=== PATIENT | female | born 1940 | race Caucasian/White ===

== ENCOUNTER → 2016-08-04 | Outpatient (CLI) | payer MEDICARE, BC ==
--- NOTE | 2016-08-06 12:58 | MM ---
Reason for exam: screening (asymptomatic). Last mammogram was performed 1 year ago. History: Patient is postmenopausal. Took progesterone for 2 years beginning at age 49. Physical Findings: A clinical breast exam by your physician is recommended on an annual basis and results should be correlated with mammographic findings. MG 3D Screening Mammo W/Cad Bilateral CC and MLO view(s) were taken. Prior study comparison: July 24, 2015, bilateral MG 3d screening mammo w/cad. July 22, 2014, bilateral MG screening mammo w CAD. The breast tissue is heterogeneously dense. This may lower the sensitivity of mammography. There is chronic nodularity bilaterally. No significant changes when compared with prior studies. ASSESSMENT: Benign, BI-RAD 2 RECOMMENDATION: Routine screening mammogram of both breasts in 1 year.
== END | disposition home or self-care (01) ==
LOC: RADMAMWWP 08:37
PROVIDERS: ATTEND Family Medicine
DX: Z12.31 Encounter for screening mammogram for malignant neoplasm of breast (principal)
CPT/HCPCS: 77063; G0202

== ENCOUNTER → 2017-08-17 | Outpatient (CLI) | payer MEDICARE ==
--- NOTE | 2017-08-17 14:45 | MM ---
Reason for exam: screening (asymptomatic). Last mammogram was performed 1 year ago. History: Patient is postmenopausal. Took progesterone for 2 years beginning at age 49. Physical Findings: A clinical breast exam by your physician is recommended on an annual basis and results should be correlated with mammographic findings. MG 3D Screening Mammo W/Cad Bilateral CC and MLO view(s) were taken. Prior study comparison: August 04, 2016, bilateral MG 3d screening mammo w/cad. July 24, 2015, bilateral MG 3d screening mammo w/cad. The breast tissue is heterogeneously dense. This may lower the sensitivity of mammography. Stable benign calcifications. There is chronic nodularity bilaterally. New nodule outer right CC view, 10.9cm from nipple. ASSESSMENT: Incomplete: need additional imaging evaluation, BI-RAD 0 RECOMMENDATION: Special view mammogram of the right breast. If lesion persists on supplemental views, image directed ultrasound is recommended. [facility] will attempt to contact patient to return for supplemental views and ultrasound if indicated.
== END | disposition home or self-care (01) ==
LOC: RADMAMWWP 09:22
PROVIDERS: ATTEND Family Medicine
DX: Z12.31 Encounter for screening mammogram for malignant neoplasm of breast (principal)
CPT/HCPCS: 77063; 77067

== ENCOUNTER → 2017-08-30 | Outpatient (CLI) | payer MEDICARE ==
--- NOTE | 2017-08-31 08:53 | MM ---
Reason for exam: additional evaluation requested from abnormal screening. Last mammogram was performed less than 1 month ago. History: Patient is postmenopausal. Took progesterone for 2 years beginning at age 49. Physical Findings: Nurse did not find any significant physical abnormalities on exam. MG 3D Work Up W/Cad RT Spot compression CC and LM view(s) were taken of the right breast. Prior study comparison: August 17, 2017, bilateral MG 3d screening mammo w/cad. August 04, 2016, bilateral MG 3d screening mammo w/cad. The breast tissue is heterogeneously dense. This may lower the sensitivity of mammography. There is no discrete abnormality. These results were verbally communicated with the patient and result sheet given to the patient on 08/30/17. ASSESSMENT: Benign, BI-RAD 2 RECOMMENDATION: Return to routine screening mammogram schedule for both breasts.
== END | disposition home or self-care (01) ==
LOC: RADMAMWWP 12:28
PROVIDERS: ATTEND Family Medicine
DX: R92.8 Other abnormal and inconclusive findings on diagnostic imaging of breast (principal)
CPT/HCPCS: 77065; G0279; 77061

== ENCOUNTER → 2018-04-04 | Outpatient (CLI) | payer MEDICARE ==
--- NOTE | 2018-04-04 18:58 | BD ---
EXAMINATION TYPE: Axial Bone Density DATE OF EXAM: 04/04/2018 COMPARISON: 2016 CLINICAL HISTORY: 77-year-old female postmenopausal screening Height: 4'11 1/2 Weight: 259 FRAX RISK QUESTIONS: Secondary Osteoporosis: RISK FACTORS HISTORY OF: Active: n Postmenopausal woman: y MEDICATIONS: Additional Medications: high blood pressure, vitamin D Additional History: EXAM MEASUREMENTS: Bone mineral densitometry was performed using the [employer] System. Bone mineral density as measured about the Lumbar spine is: ----- L1-L4(G/cm2): 1.130 T Score Values are as follows: ----- L2: 0.0 ----- L3: -1.1 ----- L4: 0.0 ----- L1-L4:-0.4 Bone mineral density has: Decreased -4.6% since study of: 07/24/2015 Bone mineral density about the R hip (g/cm2): 0.859 Bone mineral density about the L hip (g/cm2): 0.851 T Score values are as follows: -----R Neck: -1.3 -----L Neck: -1.3 -----R Total: -0.1 -----L Total: -0.1 Bone mineral density has: Decreased -3.6% since study of: -07/24/2015 IMPRESSION: Osteopenia (T Score between -2.5 and -1). There is slightly increased risk of fracture and the patient may be considered for treatment. Re-Screen 2-5 years. NOTE: T-SCORE=SD OF THE YOUNG ADULT MEAN.
== END ==
LOC: RADBDWWP 13:08
PROVIDERS: ATTEND Family Medicine
DX: M85.80 Other specified disorders of bone density and structure, unspecified site (principal); Z78.0 Asymptomatic menopausal state
CPT/HCPCS: 77080

== ENCOUNTER → 2018-08-24 | Outpatient (CLI) | payer MEDICARE ==
--- NOTE | 2018-08-25 11:40 | MM ---
Reason for exam: screening (asymptomatic). Last mammogram was performed 1 year ago. History: Patient is postmenopausal. Took progesterone for 2 years beginning at age 49. Physical Findings: A clinical breast exam by your physician is recommended on an annual basis and results should be correlated with mammographic findings. MG 3D Screening Mammo W/Cad Bilateral CC and MLO view(s) were taken. Prior study comparison: August 30, 2017, right breast MG 3d work up w/cad RT. August 17, 2017, bilateral MG 3d screening mammo w/cad. The breast tissue is heterogeneously dense. This may lower the sensitivity of mammography. Finding #1: There is a questionable new architectural distortion in the outer quadrant, anterior middle position of the left breast, 7cm from the nipple, on CC (). Finding #2: There are typically benign vascular, round calcifications in both breasts. There is a chronic nodularity bilaterally. ASSESSMENT: Incomplete: need additional imaging evaluation, BI-RAD 0 RECOMMENDATION: Special view mammogram of the left breast. If lesion persists on supplemental views, image directed ultrasound is recommended. [facility] will attempt to contact patient to return for supplemental views and ultrasound if indicated.
== END | disposition home or self-care (01) ==
LOC: RADMAMWWP 15:08
PROVIDERS: ATTEND Family Medicine
DX: Z12.31 Encounter for screening mammogram for malignant neoplasm of breast (principal)
CPT/HCPCS: 77063; 77067

== ENCOUNTER → 2018-09-01 | Outpatient (CLI) | payer MEDICARE ==
--- NOTE | 2018-09-04 08:02 | MM ---
Reason for exam: additional evaluation requested from abnormal screening. Last mammogram was performed less than 1 month ago. History: Patient is postmenopausal. Took progesterone for 2 years beginning at age 49. Physical Findings: Nurse did not find any significant physical abnormalities on exam. MG 3D Work Up W/Cad LT Spot compression CC, LM, CC, and MLO view(s) were taken of the left breast. Prior study comparison: August 24, 2018, bilateral MG 3d screening mammo w/cad. August 30, 2017, right breast MG 3d work up w/cad RT. The breast tissue is heterogeneously dense. This may lower the sensitivity of mammography. Left upper outer quadrant distortion 8cm from nipple at 2-3 o'clock persists on additional views. Ultrasound will be performed. These results were verbally communicated with the patient and result sheet given to the patient on 09/01/18. ASSESSMENT: Incomplete: need additional imaging evaluation, BI-RAD 0 RECOMMENDATION: Ultrasound of the left breast. (upper outer quadrant)
--- NOTE | 2018-09-04 08:05 | USB ---
Reason for exam: additional evaluation requested from abnormal screening. History: Patient is postmenopausal. Took progesterone for 2 years beginning at age 49. US Breast Workup Limited LT Left limited breast ultrasound including focal area of concern, retroareolar and axilla demonstrates a 5 x 3 x 3mm oval, lymph node at 1 o'clock, a 7 x 2 x 7mm mixed, possible cystic cluster at 2 o'clock and a 9 x 12 x 12mm solid, irregular, ductal ectasia at 2 o'clock, mass corresponds with mammographic finding, biopsy recommended. These results were verbally communicated with the patient and result sheet given to the patient on 09/01/18. ASSESSMENT: Suspicious, BI-RAD 4 RECOMMENDATION: Ultrasound core biopsy of the left breast. Called Dr. Myers with mammographic findings and has scheduled an appointment for the patient for 11/09/18 at 8:[address] López. Biopsy scheduled for 10/17/18 at 12:20. PRELIMINARY REPORT CALLED AND FAXED TO DR. LÓPEZ ON 09/04/18.
== END | disposition home or self-care (01) ==
LOC: RADMAMWWP 14:48
PROVIDERS: ATTEND Family Medicine
DX: R92.8 Other abnormal and inconclusive findings on diagnostic imaging of breast (principal)
CPT/HCPCS: 77065; 76642; G0279; 77061

== ENCOUNTER → 2018-10-17 | Day surgery (SDC) | payer MEDICARE ==
[2018-10-17 11:32] VITALS: RESP 18; TEMP 97.7; BMI 42.3
[2018-10-17 14:31] VITALS: BP 183/83; PULSE 83
== END ==
LOC: RADUSWWP 11:01
PROVIDERS: ATTEND Surgery
DX: Z53.8 Procedure and treatment not carried out for other reasons (principal); R92.8 Other abnormal and inconclusive findings on diagnostic imaging of breast

== ENCOUNTER → 2018-10-18 | Day surgery (SDC) | payer MEDICARE ==
[2018-10-18 12:09] VITALS: RESP 16; BMI 42.3
--- NOTE | 2018-10-18 13:50 | USB ---
EXAMINATION TYPE: US biopsy breast VAD LT, MG diagnostic mammo LT wo CAD DATE OF EXAM: 10/18/2018 CLINICAL HISTORY: R92.8 ABNORMAL MAMMOGRAM. Abnormal ultrasound. TECHNIQUE: Ultrasound guided core biopsy of left breast with clip placement and follow-up two-view mammogram. COMPARISON: Mammogram and ultrasound workup September 01, 2018 and older mammograms. FINDINGS: The procedure of ultrasound guided core biopsy was explained to the patient. Benefits, alternatives, and risks were discussed. An informed consent was then obtained. The patient was placed in supine positioning for imaging and for the procedure. Preprocedure ultrasound redemonstrates irregular hypoechoic shadowing area 2:00 position zone BC. The overlying skin was prepped and draped in usual sterile fashion. Lidocaine was used as anesthetic into the skin and subcutaneous tissue. Lidocaine with epinephrine is used as anesthetic into the deeper tissue up to area of concern in the left breast. Under ultrasound guidance, a 12-gauge vacuum assisted biopsy gun device was used to obtain 5 core samples. Following this, a biopsy clip was left in lesion. The patient tolerated the procedure well without any immediate complication. The patient was kept in the radiology department for short stay after the procedure and then discharged home in stable condition. Postprocedure mammogram along the anterior aspect of the lesion or subtle distortion seen better on 3-D views. IMPRESSION: Successful, uncomplicated ultrasound guided core biopsy of area of concern in the left breast, full pathology results to follow. Intermediate to high index of suspicion noted at time of procedure. Consider 3-D stereotactic biopsy if benign results. Pathology Results: Malignant ULTRASOUND GUIDED CORE BIOPSY, LEFT BREAST: Infiltrating lobular carcinoma, classic type. Recommendation Surgical consult of the left breast. Definitive surgical treatment, this is ammendable to ultrasound guided needle localization. MTDD
[2018-10-18 14:01] VITALS: BP 134/73; PULSE 64; TEMP 97.6
== END ==
LOC: RADUSWWP 11:37
PROVIDERS: ATTEND Surgery
DX: C50.912 Malignant neoplasm of unspecified site of left female breast (principal); Z88.5 Allergy status to narcotic agent; Z91.048 Other nonmedicinal substance allergy status
CPT/HCPCS: 88305; 88342; 88341; 77065; 19083; A4648; J2001

== ENCOUNTER → 2018-12-20 | Outpatient (CLI) | payer MEDICARE ==
--- NOTE | 2018-12-21 08:54 | USB ---
Reason for exam: clinical finding. History: Patient is postmenopausal and has history of breast cancer at age 78. Malignant US biopsy breast VAD LT of the left breast, October 18, 2018. Took progesterone for 2 years beginning at age 49. Physical Findings: Nurse Summary: x 2 palpable areas (nurse kp). US Breast BILAT Right complete breast ultrasound includes all four quadrants, the retroareolar region and axilla. Finding demonstrates a 4 x 2 x 3mm oval, cystic lesion at 1 o'clock, a 7 x 4 x 6mm lobular, mixed lesion at 1 o'clock, a 3 x 2 x 4mm lobular, cystic lesion at 7 o'clock, a 6 x 4 x 4mm oval, mixed lesion at 11 o'clock and a 13 x 7mm oval, lymph node at the axilla tail. Left complete breast ultrasound includes all four quadrants, the retroareolar region and axilla. Finding demonstrates a 6 x 3 x 4mm oval lymph node at 2 o'clock BB, a 13 x 10 x 11mm irregular lesion at 2 o'clock BB previous biopsy site and a 11 x 7 x 6mm irregular lesion at 2 o'clock BB adjacent to biopsy site. These results were verbally communicated with the patient and result sheet given to the patient on 12/20/18. ASSESSMENT: Suspicious, BI-RAD 4 RECOMMENDATION: Ultrasound core biopsy of the left breast. MRI-guided biopsy of the right breast. Right MRI biosy after ultrasound core of left breast. Called Dr. López with mammographic findings. Biopsy scheduled for 12/25/18 at 10:00. PRELIMINARY REPORT CALLED AND FAXED TO DR. LÓPEZ ON 12/21/18.
== END ==
LOC: RADUSWWP 12:37
PROVIDERS: ATTEND Surgery
DX: C50.912 Malignant neoplasm of unspecified site of left female breast (principal)

== ENCOUNTER → 2019-01-02 | Day surgery (SDC) | payer MEDICARE ==
[~2019-01-02] MED LIST: ALPRAZolam 0.25 MG TAB PO ONE; HYDROmorphone 0.5 MG/0.5 ML SYRINGE IVP PRN
[2019-01-02 09:54] VITALS: RESP 14; TEMP 98.2
[2019-01-02 14:01] VITALS: BP 140/72; PULSE 62
--- NOTE | 2019-01-02 16:17 | BMR ---
EXAMINATION TYPE: MR breast biopsy w/vad EDGAR, MG diagnostic mammo BI wo CAD DATE OF EXAM: 01/02/2019 COMPARISON: Outside breast MRI dated 11/29/2018 PREPROCEDURAL CONSULTATION: Following a discussion of the risks, benefits, and alternatives of the procedure, informed consent was obtained. The patient identified herself by both her name and date and indicated that the right breast was the area of concern. Prior to the procedure, an audible timeout was done to verify patient identification, site and type of procedure. The bilateral breasts were both marked prior to the procedure. PROCEDURE: Site A-right breast: The patient was placed on the MRI scanner within the breast coil with mild compression on the right breast. T1 weighted fat saturation axial images were obtained before and after administration of IV contrast. The enhancing area of concern was identified. The CAD Stream software program was used to localize the enhancing area of concern. The patient was taken out of the scanner and the skin was sterilely prepped. 7 mL of buffered 1% lidocaine was injected subcutaneously and then into the deeper tissues. Subsequently, a trochar and sheath were advanced into the breast at the designated depth. The trochar was removed and a plastic stylet was placed into the sheath and the patient was placed back into the scanner. Confirmation images obtained. The stylet tip was in good position in relation to the area of concern. The stylet was removed and the 9-guage vacuum-assisted needle was placed into the sheath. 7 cc of lidocaine with epinephrine was administered at the biopsy site through the biopsy device. 12 tissue core specimens were obtained. The biopsy needle was removed and a metallic clip was placed into the biopsy site (dumbbell shaped). Confirmation images were then obtained demonstrating satisfactory location of the biopsy marking clip. The patient was then taken out of the scanner and hemostasis was achieved with manual compression. A sterile dressing was applied at the site of biopsy. The patient tolerated the procedure without difficulty. Site B-left breast: The patient was placed on the MRI scanner within the breast coil with mild compression on the leftbreast. T1 weighted fat saturation axial images were obtained before and after administration of IV contrast. The enhancing area of concern was identified. The CAD Stream software program was used to localize the enhancing area of concern. The patient was taken out of the scanner and the skin was sterilely prepped. 7 mL of buffered 1% lidocaine was injected subcutaneously and then into the deeper tissues. Subsequently, a trochar and sheath were advanced into the breast at the designated depth. The trochar was removed and a plastic stylet was placed into the sheath and the patient was placed back into the scanner. Confirmation images obtained. The stylet tip was in good position in relation to the area of concern. The stylet was removed and the 9-guage vacuum-assisted needle was placed into the sheath. 7 cc of lidocaine with epinephrine was administered at the biopsy site through the biopsy device. 10 tissue core specimens were obtained. The biopsy needle was removed and a metallic clip was placed into the biopsy site (dumbbell shaped). Confirmation images were then obtained demonstrating satisfactory location of the biopsy marking clip. The patient was then taken out of the scanner and hemostasis was achieved with manual compression. A sterile dressing was applied at the site of biopsy. The patient tolerated the procedure without difficulty. Pathology specimens were labeled with patient identifiers in front of the patient while the patient was in the procedure room, and then sent to the pathology department. A post biopsy mammogram demonstrates satisfactory placement of the biopsy markers bilaterally. The patient experienced no complications during the procedure. Home-going/follow-up instructions were reviewed with the patient before she left the department. IMPRESSION: Status post MRI guided vacuum-assisted core needle biopsy of the bilateral breasts followed by placement of tissue marker. Pathology and an addendum are pending. Pathology Results: Malignant A. 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 See Surgical Pathology Cancer Case Summary and comment. B. LEFT BREAST, CORE BIOPSY: Focal scar in a background of fibrocystic changes including cysts, fibrosis, adenosis, apocrine metaplasia, calcifications and columnar cell change. Recommendation Surgical consult. Definitive surgical/medical management. MTDD
== END | disposition home or self-care (01) ==
LOC: RADMRIMAIN 08:51
PROVIDERS: ATTEND Surgery
DX: D05.11 Intraductal carcinoma in situ of right breast (principal)
CPT/HCPCS: 88305; 88342; 88341; 96374; 77066; 19085; 19086; A4648; A9585; J1170

== ENCOUNTER 2019-01-18 09:47 | Day surgery (SDC) | payer MEDICARE ==
[2019-01-16 12:16] VITALS: BMI 42.5
--- NOTE | 2019-01-18 08:23 | P.NAPBC ---
NAPBC Queries - NAPBC Queries Was patient's case review presented at [facility] tumor board? If no, comment.: Yes Was patient's pathology reviewed at [facility]? If no, comment.: Yes Was breast conservation surgery offered? If no, comment.: Yes Was sentinel node biopsy offered? If no, comment.: Yes Was diagnosis confirmed by percutaneous core biopsy? If no, comment.: Yes Is patient mastectomy patient?: Yes Was a preop referral to reconstructive surgeon offered?: Yes Clinical Stage: 1A
--- NOTE | 2019-01-18 08:23 | P.GSHP ---
History of Present Illness H&P Date: 01/18/19 Chief Complaint: Bilateral breast cancer 78-year-old female first evaluated in October of this year. She had a mammogram showing a density in the left breast. Ultrasound showed a 1.2 cm mass. Ultrasound core biopsy showed invasive lobular carcinoma that was ER positive [place] negative HER-2 negative. No family history of breast cancer. Patient otherwise asymptomatic. Given the pathology findings MRI left breast was ordered. She was presented at our multidisciplinary tumor board. MRI unfortunately had to be performed outside of town. MRI showed the known malignancy left breast. An additional 8 mm mass upper outer left breast was seen. In the right breast a 10 mm irregular mass was identified up her inner quadrant. No suspicious adenopathy bilaterally. Patient was then scheduled for MRI guided biopsy bilateral breast. Biopsy from the right breast shows grade 2 invasive ductal cancer and DCIS. Left breast MRI biopsy benign. Right breast cancer is ER/OH positive HER-2/danae negative. Past Medical History Past Medical History: Cancer, Hyperlipidemia, Hypertension Additional Past Medical History / Comment(s): Current bilateral breast cancer. History of Any Multi-Drug Resistant Organisms: None Reported Past Surgical History: Appendectomy, Breast Surgery, Cholecystectomy, Hysterectomy, Orthopedic Surgery Additional Past Surgical History / Comment(s): Bilateral knee replacement, left breast biopsy, bilateral cataract surgery. Past Anesthesia/Blood Transfusion Reactions: Motion Sickness, Postoperative Nausea & Vomiting (PONV) Past Psychological History: Anxiety Smoking Status: Never smoker Past Alcohol Use History: Rare Past Drug Use History: None Reported - Past Family History Mother Family Medical History: Cancer Additional Family Medical History / Comment(s): Colon cancer. Medications and Allergies Home Medications Medication Instructions Recorded Confirmed Type Cholecalciferol [Vitamin D3 (25 5,000 unit PO DAILY 10/02/18 01/16/19 History Mcg = 1000 Iu)] Hydrochlorothiazide [Hydrodiuril] 25 - 50 mg PO DAILY 10/02/18 01/16/19 History Ibuprofen [Motrin] 800 mg PO BID 10/02/18 01/16/19 History Metoprolol Succinate [Kapspargo 25 mg PO BID 10/02/18 01/16/19 History Sprinkle] Multivit-Min/Iron/Folic/Lutein 1 each PO DAILY 10/02/18 01/16/19 History [Centrum Silver Women Tablet] Ramipril [Altace] 10 mg PO HS 10/02/18 01/16/19 History Simvastatin [Zocor] 40 mg PO HS 10/02/18 01/16/19 History hydrALAZINE HCL [Apresoline] 25 mg PO TID 10/02/18 01/16/19 History Acetaminophen [Tylenol Extra 500 mg PO Q8HR PRN 12/25/18 01/16/19 History Strength] Citalopram Hydrobromide [CeleXA] 20 mg PO QAM 12/25/18 01/16/19 History amLODIPine [Norvasc] 2.5 mg PO QAM 12/25/18 01/16/19 History Calcium Carbonate [Calcium] 1,200 mg PO DAILY 01/16/19 01/16/19 History Allergies Allergy/AdvReac Type Severity Reaction Status Date / Time codeine AdvReac Confusion Verified 01/16/19 11:55 nickel AdvReac Itching Verified 01/16/19 11:55 Surgical - Exam Physical exam: General: Well-developed, well-nourished HEENT: Normocephalic, sclerae nonicteric Left breast: Recent scar noted, no masses, No adenopathy Right breast: Recent scar noted, no masses, no adenopathy Abdomen: Nontender, nondistended Extremities: No edema Neuro: Alert and oriented Assessment and Plan (1) Bilateral breast cancer Narrative/Plan: 78-year-old female with left breast invasive lobular cancer and right breast invasive ductal cancer. Options reviewed with the patient in detail. She is not interested in mastectomy or genetic workup at this time. Patient is interested in breast conservation. She is also not interested in plastic surgery evaluation, preop oncologic evaluation or second opinion. She would like to proceed with bilateral wire localization lumpectomy with bilateral sentinel lymph node Injection and biopsy. Risks of bleeding, infection, seroma, nerve injury, scarring, dimpling, numbness, lymphedema, possible need for additional surgery reviewed. Patient understands and wishes to proceed. Status: Acute Code(s): C50.911 - MALIGNANT NEOPLASM OF UNSP SITE OF RIGHT FEMALE BREAST; C50.912 - MALIGNANT NEOPLASM OF UNSPECIFIED SITE OF LEFT FEMALE BREAST SNOMED Code(s): 687800407
[~2019-01-18 09:47] MED LIST changes: -ALPRAZolam 0.25 MG TAB PO ONE; +DEXAMETHASONE SOD PHOSPHATE 10 MG/ML 1 ML VIAL IV ONE; +HEPARIN SODIUM,PORCINE 5,000 UNIT/ML 1 ML VIAL SQ ONE; -HYDROmorphone 0.5 MG/0.5 ML SYRINGE IVP PRN; +LACTATED RINGERS 1,000 ML IV SCH; +LIDOCAINE 1% 20 ML VIAL (10MG/ML) FOR IV START INTRADERMA PRN; +ONDANSETRON 4 MG/2 ML VIAL IVP ONE; +Pre Op ABX Message 1 EACH MISC MISCELLANE ONE; +fentaNYL (PF) 50 MCG/ML 2 ML AMP IV PRN
[2019-01-18] MEDS ORDERED: ALPRAZolam 0.25 MG TAB PO ONE (10:20)
[2019-01-18] MEDS ORDERED: LIDOCAINE 1% INJ 10MG/ML (20 ML MDV) SQ ONE ×2 (11:55→12:28)
[2019-01-18] MEDS ORDERED: METHYLENE BLUE 50 MG/10 ML AMPUL INJ ONE ×2 (12:15→13:50)
[2019-01-18] MEDS ORDERED: fentaNYL (PF) 50 MCG/ML 2 ML AMP ONE (13:19)
[2019-01-18] MEDS ORDERED: LIDOCAINE 1% INJ 10MG/ML (20 ML MDV) ONE (13:19)
[2019-01-18] MEDS ORDERED: PROPOFOL 10 MG/ML 20 ML VIAL IV ONE (13:19)
[2019-01-18] MEDS ORDERED: diphenhydrAMINE 50 MG/ML 1 ML VIAL ONE (13:19)
[2019-01-18] MEDS ORDERED: GLYCOPYRROLATE 0.2 MG/ML 2 ML VIAL ONE (13:19)
[2019-01-18] MEDS ORDERED: SUCCINYLCHOLINE CHLORIDE 100 MG/5 ML SYR IV ONE (13:19)
[2019-01-18] MEDS ORDERED: MIDAZOLAM 2 MG/2 ML VIAL ONE (13:19)
[2019-01-18] MEDS ORDERED: ePHEDrine SULFATE/0.9% NACL/PF 50 MG/5 ML SYRINGE IV ONE (13:19)
[2019-01-18] MEDS ORDERED: SODIUM CHLORIDE 0.9% 50 ML with ceFAZolin 2,000 MG IV ONE ×2 (13:28)
--- NOTE | 2019-01-18 13:38 | NM ---
EXAMINATION TYPE: NM sentinel node injection DATE OF EXAM: 01/18/2019 COMPARISON: NONE HISTORY: RIGHT BREAST CANCER TECHNIQUE AND FINDINGS: The procedure of sentinel lymph node injection was explained to the patient. The benefits, alternatives, and risks were discussed. An informed consent was then obtained. Overlying skin is cleaned with sterile alcohol. Following this, 448 uCi Tc99m Tilmanocept was inject ed in the upper outer aspect of the right nipple intradermally. The patient tolerated the procedure well without any immediate complication. The patient was kept in the radiology department for short stay after the procedure and then taken to surgery for surgical p rocedure what is presumed intraoperative gamma probe will be used for sentinel lymph node detection. IMPRESSION: Right breast radiotracer injection for sentinel node localization as above.
--- NOTE | 2019-01-18 13:41 | NM ---
EXAMINATION TYPE: NM sentinel node injection DATE OF EXAM: 01/18/2019 COMPARISON: NONE HISTORY: LEFT BREAST CANCER TECHNIQUE AND FINDINGS: The procedure of sentinel lymph node injection was explained to the patient. The benefits, alternatives, and risks were discussed. An informed consent was then obtained. Overlying skin is cleaned with sterile alcohol. Following this, 458 uCi Tc99m Tilmanocept was inject ed in the upper outer aspect of the LEFT nipple intradermally. The patient tolerated the procedure well without any immediate complication. The patient was kept in the radiology department for short stay after the procedure and then taken to surgery for surgical p rocedure what is presumed intraoperative gamma probe will be used for sentinel lymph node detection. IMPRESSION: LEFT breast radiotracer injection for sentinel node localization as above.
[2019-01-18] MEDS ORDERED: LACTATED RINGERS 1,000 ML IV ONE (15:53)
[2019-01-18 16:01] VITALS: TEMP 97.4
[2019-01-18] MEDS ORDERED: HYDROcodone/APAP 5-325MG 1 EACH TAB PO PRN (16:05)
[2019-01-18] MEDS ORDERED: NALOXONE 0.4 MG/ML 1 ML VIAL IV PRN (16:05)
--- NOTE | 2019-01-18 16:12 | P.OP ---
Date of Procedure: 01/18/19 Procedure(s) Performed: REOPERATIVE DIAGNOSIS: Bilateral breast cancer POSTOPERATIVE DIAGNOSIS: Same PROCEDURE: Bilateral Breast wire localization lumpectomy with sentinel lymph node biopsy SURGEON: Maribel EBL: Minimal ANESTHESIA: General COMPLICATIONS: None OPERATIVE PROCEDURE: Patient was placed on the operating room table in the supine position. 2 mL of methylene blue was injected into the subareolar space bilaterally. The breasts were then massaged for 5 minutes. The breasts were prepped and draped in usual sterile fashion. The right side was first addressed. The right axilla was addressed at that time. The hot spot in the right axilla was identified. A small curvilinear incision was made using the scalpel. Dissection down through the subcutaneous tissues took place using electrocautery. Using the neoprobe I identified a total of 2 sentinel lymph nodes. One of these was blue in color. These were both removed and sent to pathology for permanent sectioning. They did not have a appearance worrisome for metastasis. The subcutaneous tissues were closed using 3-0 Vicryl sutures. The skin was closed using 4-0 Monocryl sutures. The wire entrance site was then addressed. This was present at the 9:00 location. A curvilinear incision was made adjacent to the wire entrance site. I followed the wire down into the breast tissue. An adequate lumpectomy specimen then took place around the wire. It should be noted that the clip was fairly superficial and close to the skin surface. Our anterior margin would be considered immediately beneath the dermal layer. Margins of 1.5-2 cm worth attempted to be achieved. Clips were used to identify the lumpectomy cavity. The clip was confirmed to be within the lumpectomy specimen by radiology. The subcutaneous tissues were closed using 3- 0 Vicryl sutures. The skin was closed using a running 4-0 Monocryl stitch. Skin glue was then applied to both incision sites.. The specimen was painted the appropriate 6 colors. The left side was then addressed. The hot spot in the right axilla was identified. A small curvilinear incision was made using the scalpel. Dissection down through the subcutaneous tissues took place using electrocautery. Using the neoprobe I identified a total of 2 sentinel lymph nodes. Again 1 of these was blue in color. These were both removed and sent to pathology for permanent sectioning. They did not have a appearance worrisome for metastasis. The subcutaneous tissues were closed using 3-0 Vicryl sutures. The skin was closed using 4-0 Monocryl sutures. The wire entrance site was then addressed. This was present at the 9:00 location. A curvilinear incision was made adjacent to the wire entrance site. I followed the wire down into the breast tissue. An adequate lumpectomy specimen then took place around the wire. Again the clip was relatively superficial. Our anterior margin was very close to the skin surface. As we were dissecting through the subcutaneous tissues I encountered indurated and bruised appearing breast tissue. This is likely from the second benign biopsy that was performed on the left breast. During the procedure I did speak with radiology to be sure that the appropriate clip was localized preoperatively. They confirmed that the clip that was wire localized was in fact the site of malignancy. Margins of 1.5-2 cm worth attempted to be achieved. Clips were used to identify the lumpectomy cavity. The clip was confirmed to be within the lumpectomy specimen by radiology. The subcutaneous tissues were closed using 3-0 Vicryl sutures. The skin was closed using a running 4-0 Monocryl stitch. Skin glue was then applied to both incision sites. The specimen was again painted the appropriate 6 colors. DISPOSITION: Stable to recovery room
[2019-01-18] MEDS: HYDROmorphone 0.5 MG/0.5 ML SYRINGE IVP PRN ×2 (16:22→16:29)
[2019-01-18] MEDS ORDERED: HYDROcodone/APAP 5-325MG 1 EACH TAB PO ONE ×2 (17:26→17:30)
[2019-01-18 18:02] VITALS: RESP 18
[2019-01-18 18:04] VITALS: BP 135/56; PULSE 97
--- NOTE | 2019-01-19 09:27 | USB ---
EXAMINATION TYPE: US breast localization LT, US breast limited RT, MG surgical specimen LT DATE OF EXAM: 01/18/2019 COMPARISON: NONE CLINICAL HISTORY: Left breast malignancy. Informed consent was obtained and all the patient's questions were answered. The standard sterile technique was utilized. Local anesthesia was obtained with 1% lidocaine. Utilizing ultrasound guidance localization needle followed by guidewire was then introduced into the region in question with clip localized. The patient tolerated the procedure well and left the radiology suite in stable condition. Specimen radiograph demonstrates the clip to reside within the specimen obtained. IMPRESSION: Accessible ultrasound-guided needle localization left breast. Pathology results are pending. Pathology Results: Malignant A. RIGHT SENTINEL LYMPH NODES 1 AND 2, BIOPSIES: Two lymph nodes negative for metastatic adenocarcinoma by H+E as well as adequately controlled cytokeratin 7 and AISSATOU stained sections. B. LEFT SENTINEL LYMPH NODES 1 AND 2, BIOPSIES: Two lymph nodes negative for metastatic adenocarcinoma by routine H+E as well as appropriately controlled AISSATOU and CK7 stains. C. 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 An appropriately controlled immunohistochemical panel for E-Cadherin, smooth muscle myosin heavy chain, p63 and calponin are pending on block C4. The E- Cadherin antibody is reactive with both in sutu and invasive ductal carcinoma; p63, calponin and [facility] document an absence of myoepithelial cells in the invasive areas. See note. D. LEFT BREAST, LUMPECTOMY: Infiltrating lobular carcinoma, classic type, measuring 5 mm in greatest dimension 0.2 mm away from the purple inked and cauterized margin of excision (posterior margin). An appropriately controlled immunohistochemical panel for CAM 5.2, E-Cadherin, smooth muscle myosin heavy chain, p63 and calponin is performed on block D5. The E-Cadherin antibody is non-reactive with and invasive lobular carcinoma; p63, calponin and [facility] document an absence of myoepithelial cells in the invasive areas; CAM 5.2 shows that infiltrating carcinoma is about 0.2 mm away from the purple inked margin. See note. Recommendation Surgical consult of both breasts. JILLIAN
--- NOTE | 2019-01-19 11:22 | MM ---
Reason for exam: additional evaluation requested from abnormal screening. Last mammogram was performed 1 month ago. History: Patient is postmenopausal and has history of bilateral breast cancer at age 78. Malignant MR breast biopsy w/vad whitney of both breasts, January 02, 2019. Malignant US biopsy breast VAD LT of the left breast, October 18, 2018. Took progesterone for 2 years beginning at age 49. MG Diagnostic Mammo LT Wo CAD Spot compression CC view(s) were taken of the left breast. Prior study comparison: January 02, 2019, bilateral MG diagnostic sai BI wo CAD. October 18, 2018, left breast MG diagnostic mammo LT wo CAD. ASSESSMENT: Post procedure mammogram for marker placement RECOMMENDATION: Ultrasound of the left breast in 6 months. PENDING PATHOLOGY RESULTS.
--- NOTE | 2019-01-19 13:15 | MM ---
EXAMINATION TYPE: MG pre op needle loc RT DATE OF EXAM: 01/18/2019 1:12 PM COMPARISON: NONE HISTORY: Breast CA Informed consent was obtained and all the patient's questions were answered. The lesion in question was localized mammographically. The standard sterile technique was utilized, as well as appropriate local anesthesia with 1% Lidocaine and bicarbonate. Localization needle followed by placement of a guidewire was performed under mammographic guidance. Verification images demonstrate appropriate deployment of the guidewire. The patient tolerated the procedure well and left the department in stable condition. Specimen radiograph demonstrates the clip in question to reside within the specimen. IMPRESSION: Successful needle localization and open biopsy right breast with pathology results pending Pathology Results: Malignant A. RIGHT SENTINEL LYMPH NODES 1 AND 2, BIOPSIES: Two lymph nodes negative for metastatic adenocarcinoma by H+E as well as adequately controlled cytokeratin 7 and AISSATOU stained sections. B. LEFT SENTINEL LYMPH NODES 1 AND 2, BIOPSIES: Two lymph nodes negative for metastatic adenocarcinoma by routine H+E as well as appropriately controlled AISSATOU and CK7 stains. C. 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 An appropriately controlled immunohistochemical panel for E-Cadherin, smooth muscle myosin heavy chain, p63 and calponin are pending on block C4. The E- Cadherin antibody is reactive with both in sutu and invasive ductal carcinoma; p63, calponin and [facility] document an absence of myoepithelial cells in the invasive areas. See note. D. LEFT BREAST, LUMPECTOMY: Infiltrating lobular carcinoma, classic type, measuring 5 mm in greatest dimension 0.2 mm away from the purple inked and cauterized margin of excision (posterior margin). An appropriately controlled immunohistochemical panel for CAM 5.2, E-Cadherin, smooth muscle myosin heavy chain, p63 and calponin is performed on block D5. The E-Cadherin antibody is non-reactive with and invasive lobular carcinoma; p63, calponin and [facility] document an absence of myoepithelial cells in the invasive areas; CAM 5.2 shows that infiltrating carcinoma is about 0.2 mm away from the purple inked margin. See note. Recommendation Surgical consult of both breasts. JILLIAN
--- NOTE | 2019-01-26 14:54 | MM ---
MG Surgical Specimen RT EXAMINATION TYPE: MG pre op needle loc RT DATE OF EXAM: 01/18/2019 1:12 PM COMPARISON: NONE HISTORY: Breast CA Informed consent was obtained and all the patient's questions were answered. The lesion in question was localized mammographically. The standard sterile technique was utilized, as well as appropriate local anesthesia with 1% Lidocaine and bicarbonate. Localization needle followed by placement of a guidewire was performed under mammographic guidance. Verification images demonstrate appropriate deployment of the guidewire. The patient tolerated the procedure well and left the department in stable condition. Specimen radiograph demonstrates the clip in question to reside within the specimen. IMPRESSION: Successful needle localization and open biopsy right breast with pathology results pending RECOMMENDATION: Surgical consultation of the right breast. JILLIAN
--- NOTE | 2019-01-26 14:55 | USB ---
Reason for exam: additional evaluation requested from abnormal screening. History: Patient is postmenopausal and has history of bilateral breast cancer at age 78. Malignant MR breast biopsy w/vad whitney of both breasts, January 02, 2019. Malignant US biopsy breast VAD LT of the left breast, October 18, 2018. Took progesterone for 2 years beginning at age 49. US Breast Limited RT EXAMINATION TYPE: US breast localization LT, US breast limited RT, MG surgical specimen LT DATE OF EXAM: 01/18/2019 COMPARISON: NONE CLINICAL HISTORY: Left breast malignancy. Informed consent was obtained and all the patient's questions were answered. The standard sterile technique was utilized. Local anesthesia was obtained with 1% lidocaine. Utilizing ultrasound guidance localization needle followed by guidewire was then introduced into the region in question with clip localized. The patient tolerated the procedure well and left the radiology suite in stable condition. Specimen radiograph demonstrates the clip to reside within the specimen obtained. IMPRESSION: Accessible ultrasound-guided needle localization left breast. Pathology results are pending. RECOMMENDATION: Surgical consultation of the right breast. JILLIAN
== END 2019-01-18 18:27 | disposition home or self-care (01) ==
LOC: OR 09:47
PROVIDERS: ATTEND Surgery
DX: C50.911 Malignant neoplasm of unspecified site of right female breast (principal); E78.5 Hyperlipidemia, unspecified; I10 Essential (primary) hypertension; Z90.49 Acquired absence of other specified parts of digestive tract; Z90.710 Acquired absence of both cervix and uterus; Z96.653 Presence of artificial knee joint, bilateral; F41.9 Anxiety disorder, unspecified; Z80.0 Family history of malignant neoplasm of digestive organs; Z79.1 Long term (current) use of non-steroidal anti-inflammatories (NSAID); Z79.899 Other long term (current) drug therapy; Z88.5 Allergy status to narcotic agent; Z91.048 Other nonmedicinal substance allergy status; F32.9 Major depressive disorder, single episode, unspecified
CPT/HCPCS: 19301; 38525; 88342; 88307; 88341; 77065; 76098 ×2; 76642; 38792; A9520; J2250; J1200; J1644; J1100; J2405; J0690; J2001; J3010; J0330; J2704; Q9968; J1170

== ENCOUNTER → 2019-09-04 | Outpatient (CLI) | payer MEDICARE ==
--- NOTE | 2019-09-04 10:43 | MM ---
Reason for exam: additional evaluation requested from prior study. Last mammogram was performed 8 months ago. History: Patient is postmenopausal and has history of bilateral breast cancer at age 78. Malignant MG pre op needle loc RT of the right breast, January 18, 2019. Malignant US breast localization LT, January 18, 2019. Lumpectomy of both breasts, January 18, 2019. Malignant MR breast biopsy w/vad edgar of both breasts, January 02, 2019. Malignant US biopsy breast VAD LT of the left breast, October 18, 2018. Took progesterone for 2 years beginning at age 49. Taking antineoplastic for 7 months. Physical Findings: Nurse did not find any significant physical abnormalities on exam. MG 3D Diag Mammo W/Cad EDGAR Bilateral CC and MLO view(s) were taken. Prior study comparison: January 18, 2019, left breast MG diagnostic mammo LT wo CAD. January 02, 2019, bilateral MG diagnostic sai BI wo CAD. The breast tissue is heterogeneously dense. This may lower the sensitivity of mammography. Benign appearing bilateral calcifications. No suspicious abnormality. Post surgical change bilaterally. No significant new findings when compared with previous films. These results were verbally communicated with the patient and result sheet given to the patient on 09/04/19. ASSESSMENT: Benign, BI-RAD 2 RECOMMENDATION: Follow-up diagnostic mammogram of both breasts in 1 year.
== END | disposition home or self-care (01) ==
LOC: RADMAMWWP 09:37
PROVIDERS: ATTEND Surgery
DX: Z85.3 Personal history of malignant neoplasm of breast (principal)
CPT/HCPCS: 77066; G0279; 77062

== ENCOUNTER → 2020-04-28 | Outpatient (CLI) | payer MEDICARE ==
--- NOTE | 2020-04-28 12:39 | BD ---
EXAMINATION TYPE: Axial Bone Density DATE OF EXAM: 04/28/2020 COMPARISON: 07.24.2015 CLINICAL HISTORY: 79 YR OLD FEMALE.....ICD-10 CODE: Z79.890 POST MENOPAUSAL Height: 58.5 Weight: 253 FRAX RISK QUESTIONS: NOTHING TO NOTE HERE RISK FACTORS HISTORY OF: Family History of Osteoporosis: UNKNOWN Active: NO Postmenopausal woman: YES, AT AGE 50 YRS OLD, SO ABOUT AGE 54 FOR HORMONAL CHANGE Lost more than 2 inches in height since high school: YES Frequent falls: UNSTEADY Hyperparathyroidism: NO Adrenal Insufficiency: NO MEDICATIONS: Additional Medications: CALCIUM, VIT D3, BP MEDS, WELLBUTRIN, STATIN FOR CHOLESTEROL, FEMARA FOR SOPHIE ST CANCER. Additional History: HX OF BILAT BREAST CANCER, HYPERTENSION, CHOLESTEROL, EXAM MEASUREMENTS: Bone mineral densitometry was performed using the [employer] System. Bone mineral density as measured about the Lumbar spine is: ----- L1-L4(G/cm2): 1.157 T Score Values are as follows: ----- L1: -0.9 ----- L2: -0.8 ----- L3: 0.0 ----- L4: 0.7 ----- L1-L4: -0.2 Bone mineral density has: Decreased -0.7% SINCE 07.24.2015 STUDY Bone mineral density about the R hip (g/cm2): 0.998 Bone mineral density about the L hip (g/cm2): 0.954 T Score values are as follows: -----R Neck: -0.9 -----L Neck: -1.4 -----R Total: -0.1 -----L Total: -0.4 Bone mineral density has: Decreased -5.2% SINCE 07.24.2015 STUDY FRAX%S: THERE IS A 9.5% CHANCE FOR A MAJOR OSTEOPOROTIC FX AND A 1.7% FOR HIP......PROBABILITY FOR FX IN 10 YRS TIME IMPRESSION: No evidence for osteoporosis or osteopenia NOTE: T-SCORE=SD OF THE YOUNG ADULT MEAN.
== END | disposition home or self-care (01) ==
LOC: RADBDWWP 10:35
PROVIDERS: ATTEND Internal Medicine Hematology & Oncology
DX: C50.211 Malignant neoplasm of upper-inner quadrant of right female breast (principal); Z03.89 Encounter for observation for other suspected diseases and conditions ruled out; Z79.890 Hormone replacement therapy
CPT/HCPCS: 77080

== ENCOUNTER → 2020-09-09 | Outpatient (CLI) | payer MEDICARE ==
--- NOTE | 2020-09-11 13:27 | MM ---
Reason for exam: additional evaluation requested from prior study. Last mammogram was performed 1 year ago. History: Patient is postmenopausal and has history of bilateral breast cancer at age 78. Malignant MG pre op needle loc RT of the right breast, January 18, 2019. Malignant US breast localization LT, January 18, 2019. Lumpectomy of both breasts, January 18, 2019. Malignant MR breast biopsy w/vad edgar of both breasts, January 02, 2019. Malignant US biopsy breast VAD LT of the left breast, October 18, 2018. Took progesterone for 2 years beginning at age 49. Taking antineoplastic beginning at age 78. Physical Findings: Nurse did not find any significant physical abnormalities on exam. MG 3D Diag Mammo W/Cad EDGAR Bilateral CC and MLO view(s) were taken. Prior study comparison: September 04, 2019, bilateral MG 3d diag mammo w/cad EDGAR. January 18, 2019, left breast MG diagnostic mammo LT wo CAD. There are scattered fibroglandular densities. Bilateral post operative changes. These results were verbally communicated with the patient and result sheet given to the patient on 09/09/20. ASSESSMENT: Benign, BI-RAD 2 RECOMMENDATION: Follow-up diagnostic mammogram of both breasts in 1 year. JILLINA
== END | disposition home or self-care (01) ==
LOC: RADMAMWWP 10:52
PROVIDERS: ATTEND Surgery
DX: R92.8 Other abnormal and inconclusive findings on diagnostic imaging of breast (principal); Z85.3 Personal history of malignant neoplasm of breast
CPT/HCPCS: 77066; G0279; 77062

== ENCOUNTER → 2021-09-10 | Outpatient (CLI) | payer MEDICARE ==
--- NOTE | 2021-09-11 08:14 | MM ---
Reason for Exam: Screening (asymptomatic). Last screening mammogram was performed 12 month(s) ago. Patient History: Menarche at age 14. First Full-Term at age 24. Hysterectomy at age 49. Postmenopausal. Breast cancer, age 78. Progesterone for 2 years from age 49 until age 51. 01/18/2019, Bilateral Lumpectomy. Malignant Core Biopsy. 01/18/2019, Malignant Core Biopsy on the right side. 01/02/2019, Bilateral Malignant Core Biopsy. 10/18/2018, Malignant Core Biopsy on the left side. Prior Study Comparison: 01/18/2019 Left Diagnostic Mammogram, [facility]. 09/04/2019 Bilateral Diagnostic Mammogram, [facility]. 09/09/2020 Bilateral Diagnostic Mammogram, [facility]. Tissue Density: The breast tissue is heterogeneously dense. This may lower the sensitivity of mammography. best images possible for pt condition. Findings: Analyzed By CAD. There is no suspicious group of microcalcifications or new suspicious mass in either breast. Overall Assessment: Negative, BI-RAD 1 Management: Screening Mammogram of both breasts in 1 year. A clinical breast exam by your physician is recommended on an annual basis and results should be correlated with mammographic findings. Electronically signed and approved by: Hieu Bryan M.D. Radiologis
== END | disposition home or self-care (01) ==
LOC: RADMAMWWP 11:16
PROVIDERS: ATTEND Internal Medicine Hematology & Oncology
DX: Z12.31 Encounter for screening mammogram for malignant neoplasm of breast (principal)
CPT/HCPCS: 77063; 77067

== ENCOUNTER → 2021-12-11 | Outpatient (CLI) | payer MEDICARE ==
--- NOTE | 2021-12-11 13:05 | CT ---
EXAMINATION TYPE: CT brain wo con DATE OF EXAM: 12/11/2021 COMPARISON: None HISTORY: frequent falls, weakness CT DLP: 1116 mGycm Automated exposure control for dose reduction was used. FINDINGS: The ventricles, basal cisterns and sulci over the convexities are within normal limits for the patien t's age. There is no mass effect or shift of midline structures. No abnormal density is seen throughout the brain parenchyma and there is no acute intra or extra-axia l hemorrhage. The posterior fossa including the brainstem, fourth ventricle and cerebellar pontine angles are gross ly normal. Intraorbital contents appear normal and symmetric. There is complete opacification of the right maxillary sinus and there is scattered dense calcificati on within it. The findings suggest the presence of a fungal infection. There is no osseous destructio n. The mastoid air cells are well aerated. IMPRESSION: 1. No acute bleed or mass effect. 2. Marked abnormality of the right maxillary sinus as described above. IMPRESSION:
== END | disposition home or self-care (01) ==
LOC: RADCTMAIN 12:09
PROVIDERS: ATTEND Family Medicine
DX: S09.90XA Unspecified injury of head, initial encounter (principal); X58.XXXA Exposure to other specified factors, initial encounter
CPT/HCPCS: 70450

== ENCOUNTER 2021-12-13 18:40 | Inpatient (IN) | payer MEDICARE ==
--- NOTE | 2021-12-13 19:01 | ED ---
General Adult HPI - General Chief complaint: Altered Mental Status Stated complaint: AMS Time Seen by Provider: 12/13/21 19:00 Source: patient, EMS Mode of arrival: EMS Limitations: altered mental status - History of Present Illness Initial comments: Patient presents to the ED by ambulance for evaluation of reported expressive aphasia and altered mental status. Patient has reportedly fallen twice today, and she has also reportedly been having difficulty with her words today. Patient is A and O 3 at this time, but she does appear to be confused when I ask her certain questions. Patient denies sustaining any injury from her fall today, and she denies head injury or headache. Patient also denies LOC. Patient does admit to having burning dysuria and urinary frequency. Patient denies fever or chills, headache, focal numbness/weakness/neuro deficit, visual changes, neck/back/extremity pain, chest pain, dyspnea, cough or cold symptoms, palpitations, dizziness, abdominal pain, nausea/vomiting/diarrhea, bloody or melanotic stool, hematuria, or any other symptoms or complaints. Patient's blood glucose was in the 100s per EMS. It is unclear at this time when the patient's confusion/expressive aphasia began. - Related Data Home Medications Medication Instructions Recorded Confirmed Ibuprofen [Motrin] 800 mg PO Q8H PRN 10/02/18 12/13/21 Multivit-Min/Iron/Folic/Lutein 1 tab PO DAILY 10/02/18 12/13/21 [Centrum Silver Women Tablet] hydrALAZINE HCL [Apresoline] 25 mg PO TID 10/02/18 12/13/21 ALPRAZolam [Xanax] 0.25 mg PO QID PRN 12/13/21 12/13/21 Atorvastatin [Lipitor] 40 mg PO DAILY 12/13/21 12/13/21 Calcium Citrate 600mg 1 tab PO BID 12/13/21 12/13/21 Cholecalciferol [Vitamin D3 (125 125 mcg PO DAILY 12/13/21 12/13/21 Mcg = 5000 Iu)] Fluticasone Nasal [place] [Flonase 2 spr EA NOSTRIL DAILY PRN 12/13/21 12/13/21 Nasal [place]] Letrozole [Femara] 2.5 mg PO DAILY 12/13/21 12/13/21 Losartan Potassium 100 mg PO DAILY 12/13/21 12/13/21 Metoprolol Tartrate [Lopressor] 25 mg PO BID 12/13/21 12/13/21 Oxybutynin Chloride [Ditropan XL] 10 mg PO DAILY 12/13/21 12/13/21 Quercetin Dihydrate 1 dose PO DAILY 12/13/21 12/13/21 Zinc Gluconate [Zinc] 50 mg PO DAILY 12/13/21 12/13/21 amLODIPine [Norvasc] 10 mg PO DAILY 12/13/21 12/13/21 buPROPion XL [Wellbutrin XL] 150 mg PO DAILY 12/13/21 12/13/21 Allergies Allergy/AdvReac Type Severity Reaction Status Date / Time codeine AdvReac Confusion Verified 12/13/21 22:21 hydromorphone [From Dilaudid] AdvReac Nausea & Verified 12/13/21 22:21 Vomiting nickel AdvReac Itching Verified 12/13/21 22:21 Review of Systems ROS Statement: Those systems with pertinent positive or pertinent negative responses have been documented in the HPI. ROS Other: All systems not noted in ROS Statement are negative. Past Medical History Past Medical History: Cancer, Hyperlipidemia, Hypertension Additional Past Medical History / Comment(s): Current bilateral breast cancer. History of Any Multi-Drug Resistant Organisms: None Reported Past Surgical History: Appendectomy, Breast Surgery, Cholecystectomy, Hysterectomy, Orthopedic Surgery Additional Past Surgical History / Comment(s): Bilateral knee replacement, left breast biopsy, bilateral cataract surgery. Past Anesthesia/Blood Transfusion Reactions: Motion Sickness, Postoperative Nausea & Vomiting (PONV) Past Psychological History: Anxiety Past Alcohol Use History: Rare Past Drug Use History: None Reported - Past Family History Mother Family Medical History: Cancer Additional Family Medical History / Comment(s): Colon cancer. General Exam Limitations: altered mental status General appearance: alert, in no apparent distress Head exam: Present: atraumatic, normocephalic Eye exam: Present: normal appearance, PERRL, EOMI ENT exam: Present: mucous membranes moist, TM's normal bilaterally Neck exam: Present: other (Trachea is in midline; no nuchal rigidity or meningeal signs are present on exam). Absent: tenderness, meningismus Respiratory exam: Present: normal lung sounds bilaterally. Absent: respiratory distress, wheezes, rales, rhonchi, stridor Cardiovascular Exam: Present: regular rate, normal rhythm, normal heart sounds, other (Normal radial pulses bilaterally) GI/Abdominal exam: Present: soft. Absent: distended, tenderness, guarding Extremities exam: Present: full ROM, other (Pelvis is stable and nontender). Absent: tenderness, pedal edema, calf tenderness Back exam: Present: normal inspection. Absent: tenderness Neurological exam: Present: alert, oriented X3, motor sensory deficit, other (Patient does seem to have trouble focusing, and she is confused at times). Absent: CN II-XII intact Psychiatric exam: Present: normal affect, normal mood Skin exam: Present: warm, dry, intact, normal color Course Vital Signs 12/13/21 18:42 Temperature 98.3 F Pulse Rate 94 Respiratory 18 Rate Blood Pressure 201/135 O2 Sat by Pulse 98 Oximetry - Reevaluation(s) Reevaluation #1: 12/13/21 20:01 Patient's is now in the ER at bedside with the patient. Patient's states that he called for an ambulance for the patient today because she fell twice, and he was concerned about her being unsteady. He states that the patient's cognitive issues have been ongoing for months, and he states that it is nothing new; although he admits that the patient's confusion seems to be somewhat worse over the past few days. 12/13/21 21:27 Case, H&P, test results and ED management thus far were discussed with Dr. Camarena. He accepts hospital admission. He does not feel that anticoagulation is indicated at this time, as the patient's elevated troponin is likely due to sepsis. He recommends trending the patient's troponins. He has no further r ecommendations at this time. 12/13/21 21:52 Patient denies development of any new symptoms while in the ED. Patient remains alert and breathing comfortably. Patient continues to deny having any chest pain/pressure or dyspnea. Patient and are aware the patient's test results, and they both agree with hospital admission at this time. EKG Findings - EKG Comments: EKG Findings:: Normal sinus rhythm, ventricular rate of 77 bpm, no ectopy, right bundle branch block, left anterior fascicular block, normal [place] interval, QRS du ration of 126 ms, normal QT interval, normal axis, no ST elevation Medical Decision Making - Medical Decision Making I suspect that the patient's falls, worsening confusion and urinary symptoms are likely due to UTI given her laboratory findings. Patient has been treated with IV Rocephin and IV fluids in the ED. Patient's troponin is also mildly elevated. I suspect that this is likely due to sepsis (patient's lactate is 2.3). Patient denies having any chest pain or dyspnea, and her EKG shows ST elevation. Patient was given a dose of oral aspirin in the ED. Will admit the patient to the hospital for further evaluation/treatment, serial troponins and cardiac monitoring. Dr. Camarena has accepted hospital admission. - Lab Data Result diagrams: 12/13/21 19:45 12/13/21 19:45 Lab Results 12/13/21 12/13/21 12/13/21 Range/Units 19:14 19:14 19:45 WBC 15.9 H (3.8-10.6) k/uL RBC 4.93 (3.80-5.40) m/uL Hgb 13.9 (11.4-16.0) gm/dL Hct 44.0 (34.0-46.0) % MCV 89.2 (80.0-100.0) fL MCH 28.1 (25.0-35.0) pg MCHC 31.5 (31.0-37.0) g/dL RDW 14.0 (11.5-15.5) % Plt Count 288 (150-450) k/uL MPV 7.9 Neutrophils % 80 % Lymphocytes % 10 % Monocytes % 8 % Eosinophils % 1 % Basophils % 0 % Neutrophils # 12.8 H (1.3-7.7) k/uL Lymphocytes # 1.5 (1.0-4.8) k/uL Monocytes # 1.2 H (0-1.0) k/uL Eosinophils # 0.1 (0-0.7) k/uL Basophils # 0.1 (0-0.2) k/uL PT (9.0-12.0) sec INR (<1.2) APTT (22.0-30.0) sec Sodium (137-145) mmol/L Potassium (3.5-5.1) mmol/L Chloride (98-107) mmol/L Carbon Dioxide (22-30) mmol/L Anion Gap mmol/L BUN (7-17) mg/dL Creatinine (0.52-1.04) mg/dL Est GFR (CKD-EPI)AfAm (>60 ml/min/1.73 sqM) Est GFR (CKD-EPI)NonAf (>60 ml/min/1.73 sqM) Glucose (74-99) mg/dL Plasma Lactic Acid Cody (0.7-2.0) mmol/L Calcium (8.4-10.2) mg/dL Magnesium (1.6-2.3) mg/dL Total Bilirubin (0.2-1.3) mg/dL AST (14-36) U/L ALT (4-34) U/L Alkaline Phosphatase (38-126) U/L Troponin I (0.000-0.034) ng/mL Total Protein (6.3-8.2) g/dL Albumin (3.5-5.0) g/dL Urine Color Yellow Urine Appearance Turbid H (Clear) Urine pH 8.0 (5.0-8.0) Ur Specific [place] 1.012 (1.001-1.035) Urine Protein Trace H (Negative) Urine Glucose (UA) Negative (Negative) Urine Ketones Trace H (Negative) Urine Blood Negative (Negative) Urine Nitrite Positive H (Negative) Urine Bilirubin Negative (Negative) Urine Urobilinogen <2.0 (<2.0) mg/dL Ur Leukocyte Esterase Large H (Negative) Urine RBC 1 (0-5) /hpf Urine WBC 34 H (0-5) /hpf Amorphous Sediment Rare H (None) /hpf Urine Mucus Rare H (None) /hpf Urine Opiates Screen Not Detected (NotDetected) Ur Oxycodone Screen Not Detected (NotDetected) Urine Methadone Screen Not Detected (NotDetected) Ur Propoxyphene Screen Not Detected (NotDetected) Ur Barbiturates Screen Not Detected (NotDetected) U Tricyclic Antidepress Not Detected (NotDetected) Ur Phencyclidine Scrn Not Detected (NotDetected) Ur Amphetamines Screen Not Detected (NotDetected) U Methamphetamines Scrn Not Detected (NotDetected) U Benzodiazepines Scrn Not Detected (NotDetected) Urine Cocaine Screen Not Detected (NotDetected) U Marijuana (THC) Screen Not Detected (NotDetected) Serum Alcohol mg/dL Coronavirus (PCR) Not Detected (Not Detectd) 12/13/21 12/13/21 12/13/21 Range/Units 19:45 19:45 19:45 WBC (3.8-10.6) k/uL RBC (3.80-5.40) m/uL Hgb (11.4-16.0) gm/dL Hct (34.0-46.0) % MCV (80.0-100.0) fL MCH (25.0-35.0) pg MCHC (31.0-37.0) g/dL RDW (11.5-15.5) % Plt Count (150-450) k/uL MPV Neutrophils % % Lymphocytes % % Monocytes % % Eosinophils % % Basophils % % Neutrophils # (1.3-7.7) k/uL Lymphocytes # (1.0-4.8) k/uL Monocytes # (0-1.0) k/uL Eosinophils # (0-0.7) k/uL Basophils # (0-0.2) k/uL PT 11.0 (9.0-12.0) sec INR 1.0 (<1.2) APTT 23.3 (22.0-30.0) sec Sodium 140 (137-145) mmol/L Potassium 3.7 (3.5-5.1) mmol/L Chloride 105 (98-107) mmol/L Carbon Dioxide 24 (22-30) mmol/L Anion Gap 11 mmol/L BUN 19 H (7-17) mg/dL Creatinine 0.72 (0.52-1.04) mg/dL Est GFR (CKD-EPI)AfAm >90 (>60 ml/min/1.73 sqM) Est GFR (CKD-EPI)NonAf 81 (>60 ml/min/1.73 sqM) Glucose 114 H (74-99) mg/dL Plasma Lactic Acid Cody (0.7-2.0) mmol/L Calcium 10.4 H (8.4-10.2) mg/dL Magnesium 1.8 (1.6-2.3) mg/dL Total Bilirubin 0.9 (0.2-1.3) mg/dL AST 48 H (14-36) U/L ALT 21 (4-34) U/L Alkaline Phosphatase 92 (38-126) U/L Troponin I 1.210 H* (0.000-0.034) ng/mL Total Protein 6.7 (6.3-8.2) g/dL Albumin 3.9 (3.5-5.0) g/dL Urine Color Urine Appearance (Clear) Urine pH (5.0-8.0) Ur Specific [place] (1.001-1.035) Urine Protein (Negative) Urine Glucose (UA) (Negative) Urine Ketones (Negative) Urine Blood (Negative) Urine Nitrite (Negative) Urine Bilirubin (Negative) Urine Urobilinogen (<2.0) mg/dL Ur Leukocyte Esterase (Negative) Urine RBC (0-5) /hpf Urine WBC (0-5) /hpf Amorphous Sediment (None) /hpf Urine Mucus (None) /hpf Urine Opiates Screen (NotDetected) Ur Oxycodone Screen (NotDetected) Urine Methadone Screen (NotDetected) Ur Propoxyphene Screen (NotDetected) Ur Barbiturates Screen (NotDetected) U Tricyclic Antidepress (NotDetected) Ur Phencyclidine Scrn (NotDetected) Ur Amphetamines Screen (NotDetected) U Methamphetamines Scrn (NotDetected) U Benzodiazepines Scrn (NotDetected) Urine Cocaine Screen (NotDetected) U Marijuana (THC) Screen (NotDetected) Serum Alcohol <10 mg/dL Coronavirus (PCR) (Not Detectd) 12/13/21 Range/Units 19:45 WBC (3.8-10.6) k/uL RBC (3.80-5.40) m/uL Hgb (11.4-16.0) gm/dL Hct (34.0-46.0) % MCV (80.0-100.0) fL MCH (25.0-35.0) pg MCHC (31.0-37.0) g/dL RDW (11.5-15.5) % Plt Count (150-450) k/uL MPV Neutrophils % % Lymphocytes % % Monocytes % % Eosinophils % % Basophils % % Neutrophils # (1.3-7.7) k/uL Lymphocytes # (1.0-4.8) k/uL Monocytes # (0-1.0) k/uL Eosinophils # (0-0.7) k/uL Basophils # (0-0.2) k/uL PT (9.0-12.0) sec INR (<1.2) APTT (22.0-30.0) sec Sodium (137-145) mmol/L Potassium (3.5-5.1) mmol/L Chloride (98-107) mmol/L Carbon Dioxide (22-30) mmol/L Anion Gap mmol/L BUN (7-17) mg/dL Creatinine (0.52-1.04) mg/dL Est GFR (CKD-EPI)AfAm (>60 ml/min/1.73 sqM) Est GFR (CKD-EPI)NonAf (>60 ml/min/1.73 sqM) Glucose (74-99) mg/dL Plasma Lactic Acid Cody 2.3 H* (0.7-2.0) mmol/L Calcium (8.4-10.2) mg/dL Magnesium (1.6-2.3) mg/dL Total Bilirubin (0.2-1.3) mg/dL AST (14-36) U/L ALT (4-34) U/L Alkaline Phosphatase (38-126) U/L Troponin I (0.000-0.034) ng/mL Total Protein (6.3-8.2) g/dL Albumin (3.5-5.0) g/dL Urine Color Urine Appearance (Clear) Urine pH (5.0-8.0) Ur Specific [place] (1.001-1.035) Urine Protein (Negative) Urine Glucose (UA) (Negative) Urine Ketones (Negative) Urine Blood (Negative) Urine Nitrite (Negative) Urine Bilirubin (Negative) Urine Urobilinogen (<2.0) mg/dL Ur Leukocyte Esterase (Negative) Urine RBC (0-5) /hpf Urine WBC (0-5) /hpf Amorphous Sediment (None) /hpf Urine Mucus (None) /hpf Urine Opiates Screen (NotDetected) Ur Oxycodone Screen (NotDetected) Urine Methadone Screen (NotDetected) Ur Propoxyphene Screen (NotDetected) Ur Barbiturates Screen (NotDetected) U Tricyclic Antidepress (NotDetected) Ur Phencyclidine Scrn (NotDetected) Ur Amphetamines Screen (NotDetected) U Methamphetamines Scrn (NotDetected) U Benzodiazepines Scrn (NotDetected) Urine Cocaine Screen (NotDetected) U Marijuana (THC) Screen (NotDetected) Serum Alcohol mg/dL Coronavirus (PCR) (Not Detectd) - Radiology Data Noncontrast head CT: Right maxillary sinusitis. Negative CT scan of the brain. No change compared to recent exam. Chest x-ray: No active cardiopulmonary disease. No change. Disposition Clinical Impression: Falls, Altered mental status, UTI (urinary tract infection), Elevated troponin Disposition: ADMITTED IP TO THIS HOSP Condition: Stable Is patient prescribed a controlled substance at d/c from ED?: No Time of Disposition: 21:36
[2021-12-13 20:05] LABS: Basophils # (A) 0.1 k/uL (0-0.2); Basophils % (A) 0 %; Eosinophils # (A) 0.1 k/uL (0-0.7); Eosinophils % (A) 1 %; HGB 13.9 gm/dL (11.4-16.0); Lymphocytes # (A) 1.5 k/uL (1.0-4.8); Lymphocytes % (A) 10 %; MCH 28.1 pg (25.0-35.0); MCHC 31.5 g/dL (31.0-37.0); MCV 89.2 fL (80.0-100.0); Mean Platelet Volume 7.9; Monocytes # (A) 1.2 k/uL (0-1.0); Monocytes % (A) 8 %; Neutrophils # (A) 12.8 k/uL (1.3-7.7); Neutrophils % (A) 80 %; Platelet Count 288 k/uL (150-450); RBC 4.93 m/uL (3.80-5.40); WBC 15.9 k/uL (3.8-10.6)
[2021-12-13 20:05] LABS: Amorphous Sediment,Urine Rare /hpf; Appearance,Urine Turbid (Clear); Bilirubin,Urine Negative (Negative); Blood,Urine Negative (Negative); Color,Urine Yellow; Glucose,Urine (UA) Negative (Negative); Ketones,Urine Trace (Negative); Leukocyte Esterase,Urine Large (Negative); Mucus,Urine Rare /hpf; Nitrite,Urine Positive (Negative); Protein,Urine Trace (Negative); RBC,Urine 1 /hpf (0-5); Specific Gravity,Urine 1.012 (1.001-1.035); Urobilinogen,Urine <2.0 mg/dL (<2.0); WBC,Urine 34 /hpf (0-5)
[2021-12-13 20:13] LABS: Partial Thromboplastin Time 23.3 sec (22.0-30.0)
[2021-12-13 20:14] LABS: Cocaine Screen,Urine Not Detected (NotDetected); Phencyclidine Screen,Urine Not Detected (NotDetected); Urn Cannabinoid Scrn Not Detected (NotDetected)
[2021-12-13 20:15] LABS: Amphetamine Screen,Urine Not Detected (NotDetected); Barbiturate Screen,Urine Not Detected (NotDetected); Benzodiazepines Screen,Urine Not Detected (NotDetected); Methadone Screen, Urine Not Detected (NotDetected); Opiate Screen,Urine Not Detected (NotDetected); Oxycodone Screen, Urine Not Detected (NotDetected); Tricyclic Antidepressant,Urine Not Detected (NotDetected)
[2021-12-13 20:17] LABS: ALT 21 U/L (4-34); AST 48 U/L (14-36); African American GFR (CKD) >90 (>60 ml/min/1.73 sqM); Albumin 3.9 g/dL (3.5-5.0); Alcohol <10 mg/dL; Alkaline Phosphatase 92 U/L (38-126); Anion Gap 11 mmol/L; Blood Urea Nitrogen 19 mg/dL (7-17); Calcium 10.4 mg/dL (8.4-10.2); Carbon Dioxide 24 mmol/L (22-30); Chloride 105 mmol/L (98-107); Glucose 114 mg/dL (74-99); Magnesium 1.8 mg/dL (1.6-2.3); Non-African American GFR(CKD) 81 (>60 ml/min/1.73 sqM); Potassium 3.7 mmol/L (3.5-5.1); Sodium 140 mmol/L (137-145); Total Bilirubin 0.9 mg/dL (0.2-1.3); Total Protein 6.7 g/dL (6.3-8.2)
--- NOTE | 2021-12-13 20:18 | XR ---
EXAMINATION TYPE: XR chest 1V portable DATE OF EXAM: 12/13/2021 COMPARISON: 01/26/2013 HISTORY: Altered mental status TECHNIQUE: FINDINGS: Heart is normal. Lungs are clear of infiltrate. There is mild thoracic dextroscoliosis. Cos tophrenic angles are clear. Bony thorax is intact. IMPRESSION: No active cardiopulmonary disease. No change.
[2021-12-13] MEDS ORDERED: ASPIRIN 81 MG PO STA (21:03)
[2021-12-13] MEDS ORDERED: SODIUM CHLORIDE 0.9% 500 ML 500 ML IV ONE (21:04)
--- NOTE | 2021-12-13 21:17 | CT ---
EXAMINATION TYPE: CT brain wo con DATE OF EXAM: 12/13/2021 COMPARISON: 12/11/2021 HISTORY: Weakness, AMS CT DLP: 1158.4 mGycm Automated exposure control for dose reduction was used. Images of the brain obtained with no contrast. Ventricles have normal size. There is no mass effect or midline shift. No sign of intracranial hemorr natalio. Calvarium is intact. No evidence of a posterior fossa mass. There is mucosal thickening right m axillary sinus. IMPRESSION: Right maxillary sinusitis. Negative CT scan of the brain. No change compared to recent exam
--- NOTE | 2021-12-13 23:13 | P.HPIM ---
History of Present Illness H&P Date: 12/13/21 Chief Complaint: increase confusion 81 year old female with breast cancer , hypertension , and mild cognitive impairment patient unable to provide any meaningful history , she seems to be comfortable and pleasant. but her confusion seems to be waxing the waning. ED note was reviewed ,at that time was also available reported patient has cognitive impairment for months now, and her behavior is not new, however, he brought her in today for evaluation by EMS due to two episodes of falling, and being slightly more confused for 2-3 days now compared to her baseline. no reported LOC , patient not on blood thinners. there is a possibility of head injury during the falling episodes. patient herself, has moments where she seems lucid, she denies chest pain or trouble breathing, denies fever or chills, denies headache, changes in vision or hearing, denies any new focal neuro deficits. she reports feeling both her legs are weaker and unable to support her, also reports dysuria and funny smelling urine, but denies any abd pain , nausea or vomiting. workup in the ED showed CT brain no acute pathology UA positive and suggestive of UTI elevated WBC, elevated lactic acid , and elevated troponins EKG no acute ST changes CXR no acute pathology COVID negative urine drug screen negative Review of Systems ROS unobtainable: due to mental status Past Medical History Past Medical History: Cancer, Hyperlipidemia, Hypertension Additional Past Medical History / Comment(s): Current bilateral breast cancer. History of Any Multi-Drug Resistant Organisms: None Reported Past Surgical History: Appendectomy, Breast Surgery, Cholecystectomy, Hysterectomy, Orthopedic Surgery Additional Past Surgical History / Comment(s): Bilateral knee replacement, left breast biopsy, bilateral cataract surgery. Past Anesthesia/Blood Transfusion Reactions: Motion Sickness, Postoperative Nausea & Vomiting (PONV) Past Psychological History: Anxiety Past Alcohol Use History: Rare Past Drug Use History: None Reported - Past Family History Mother Family Medical History: Cancer Additional Family Medical History / Comment(s): Colon cancer. Medications and Allergies Home Medications Medication Instructions Recorded Confirmed Type Ibuprofen [Motrin] 800 mg PO Q8H PRN 10/02/18 12/13/21 History Multivit-Min/Iron/Folic/Lutein 1 tab PO DAILY 10/02/18 12/13/21 History [Centrum Silver Women Tablet] hydrALAZINE HCL [Apresoline] 25 mg PO TID 10/02/18 12/13/21 History ALPRAZolam [Xanax] 0.25 mg PO QID PRN 12/13/21 12/13/21 History Atorvastatin [Lipitor] 40 mg PO DAILY 12/13/21 12/13/21 History Calcium Citrate 600mg 1 tab PO BID 12/13/21 12/13/21 History Cholecalciferol [Vitamin D3 (125 125 mcg PO DAILY 12/13/21 12/13/21 History Mcg = 5000 Iu)] Fluticasone Nasal [place] [Flonase 2 spr EA NOSTRIL DAILY PRN 12/13/21 12/13/21 History Nasal [place]] Letrozole [Femara] 2.5 mg PO DAILY 12/13/21 12/13/21 History Losartan Potassium 100 mg PO DAILY 12/13/21 12/13/21 History Metoprolol Tartrate [Lopressor] 25 mg PO BID 12/13/21 12/13/21 History Oxybutynin Chloride [Ditropan XL] 10 mg PO DAILY 12/13/21 12/13/21 History Quercetin Dihydrate 1 dose PO DAILY 12/13/21 12/13/21 History Zinc Gluconate [Zinc] 50 mg PO DAILY 12/13/21 12/13/21 History amLODIPine [Norvasc] 10 mg PO DAILY 12/13/21 12/13/21 History buPROPion XL [Wellbutrin XL] 150 mg PO DAILY 12/13/21 12/13/21 History Allergies Allergy/AdvReac Type Severity Reaction Status Date / Time codeine AdvReac Confusion Verified 12/13/21 22:21 hydromorphone [From Dilaudid] AdvReac Nausea & Verified 12/13/21 22:21 Vomiting nickel AdvReac Itching Verified 12/13/21 22:21 Physical Exam Vitals: Vital Signs Temp Pulse Resp BP Pulse Ox 12/13/21 18:42 98.3 F 94 18 201/135 98 Intake and Output 12/13/21 12/13/21 12/14/21 14:59 22:59 06:59 Other: Weight 113.398 kg Constitutional: No acute distress, conversant, pleasantly confused Eyes: Anicteric sclerae, moist conjunctiva, Pupils equal round reactive to light ENMT: NC/AT Oropharynx clear, no erythema, or exudates Neck: Supple, no masses, or JVD No carotid bruits No thyromegaly Lungs: Clear to auscultation Clear to percussion Normal respiratory effort, no accessory muscle use Cardiovascular: Heart regular in rate and rhythm, No murmurs, gallops, or rubs No peripheral edema Abdominal: Soft Nontender, no guarding, rebound or rigidity Abdomen moving with respiration Normoactive bowel sounds No hepatomegaly, No splenomegaly No palpable mass No abdominal wall hernia noted Skin: Normal temperature, tone, texture, turgor erythema over bilateral lower third of the legs with chronic skin changes, no induration no tenderness Extremities: No digital cyanosis No clubbing Pedal pulses weak and symmetrical, capillary refill immediate. warm to the touch both feet. Radial pulses intact and symmetrical No calf tenderness Psychiatric: Alert and oriented to person only Neuro Muscles Strength 4/5 in bilateral upper extremities , 3/5 bilateral lower extremities over proximal muscle gruops, 4/5 in bilateral feet. Sensation to light touch grossly present throughout Cranial nerves II-XII grossly intact No focal sensory deficits Lymphatics: no palpable cervical or supraclavicular , or inguinal lymph nodes Results CBC & Chem 7: 12/13/21 19:45 12/13/21 19:45 Labs: Abnormal Lab Results - Last 24 Hours (Table) 12/13/21 12/13/21 12/13/21 Range/Units 19:14 19:45 19:45 WBC 15.9 H (3.8-10.6) k/uL Neutrophils # 12.8 H (1.3-7.7) k/uL Monocytes # 1.2 H (0-1.0) k/uL BUN 19 H (7-17) mg/dL Glucose 114 H (74-99) mg/dL Plasma Lactic Acid [place] (0.7-2.0) mmol/L Calcium 10.4 H (8.4-10.2) mg/dL AST 48 H (14-36) U/L Troponin I (0.000-0.034) ng/mL Urine Appearance Turbid H (Clear) Urine Protein Trace H (Negative) Urine Ketones Trace H (Negative) Urine Nitrite Positive H (Negative) Ur Leukocyte Esterase Large H (Negative) Urine WBC 34 H (0-5) /hpf Amorphous Sediment Rare H (None) /hpf Urine Mucus Rare H (None) /hpf 09/18/22 09/18/22 Range/Units 19:45 19:45 WBC (3.8-10.6) k/uL Neutrophils # (1.3-7.7) k/uL Monocytes # (0-1.0) k/uL BUN (7-17) mg/dL Glucose (74-99) mg/dL Plasma Lactic Acid [place] 2.3 H* (0.7-2.0) mmol/L Calcium (8.4-10.2) mg/dL AST (14-36) U/L Troponin I 1.210 H* (0.000-0.034) ng/mL Urine Appearance (Clear) Urine Protein (Negative) Urine Ketones (Negative) Urine Nitrite (Negative) Ur Leukocyte Esterase (Negative) Urine WBC (0-5) /hpf Amorphous Sediment (None) /hpf Urine Mucus (None) /hpf Assessment and Plan Assessment: sepsis secondary to UTI malignant hypertension elevated tropnonins , suspected secondary to above, will continue to trend , den ies chest pain or dyspnea worsening underlying cognitive impairment secondary to acute infectious process falls at home plan follow up cultures Brain CT no acute pathology neuro checks fall precautions initiated on Rocephin for UTI /sepsis IVF hydration with normal saline follow up elevated lactic acid trend troponins cardiology consult EKG no acute ST changes continue with ASA, statin resume home BP meds clonidine PRN for systolic > 180 PT evaluation monitor vital signs admission to step down unit Full code hepairn sc tid for DVT PPX
[2021-12-13] MEDS ORDERED: cloNIDine HCL 0.2 MG TAB PO PRN (23:30)
[2021-12-14] MEDS: hydrALAZINE HCL 25 MG TAB PO SCH ×5 (00:44→21:41)
[2021-12-14] MEDS: METOPROLOL TARTRATE 25 MG TAB PO SCH ×3 (00:44→21:41)
[2021-12-14] MEDS: HEPARIN SODIUM,PORCINE/PF 5,000 UNIT/0.5 ML SYRINGE SQ SCH ×3 (03:45→18:24)
[2021-12-14 06:43] LABS: Basophils # (A) 0.1 k/uL (0-0.2); Basophils % (A) 1 %; Eosinophils # (A) 0.3 k/uL (0-0.7); Eosinophils % (A) 3 %; Lymphocytes # (A) 1.8 k/uL (1.0-4.8); Lymphocytes % (A) 16 %; MCH 29.3 pg (25.0-35.0); MCHC 32.7 g/dL (31.0-37.0); MCV 89.8 fL (80.0-100.0); Mean Platelet Volume 7.8; Monocytes # (A) 0.9 k/uL (0-1.0); Monocytes % (A) 8 %; Neutrophils # (A) 7.8 k/uL (1.3-7.7); Neutrophils % (A) 71 %; Platelet Count 301 k/uL (150-450); RBC 4.79 m/uL (3.80-5.40); RDW 14.3 % (11.5-15.5)
[2021-12-14] MEDS: PANTOPRAZOLE 40 MG TABLET PO SCH (06:57)
[2021-12-14 07:24] LABS: ALT 23 U/L (4-34); AST 63 U/L (14-36); African American GFR (CKD) >90 (>60 ml/min/1.73 sqM); Albumin 3.6 g/dL (3.5-5.0); Alkaline Phosphatase 87 U/L (38-126); Anion Gap 9 mmol/L; Blood Urea Nitrogen 15 mg/dL (7-17); Calcium 9.7 mg/dL (8.4-10.2); Carbon Dioxide 24 mmol/L (22-30); Chloride 107 mmol/L (98-107); Glucose 104 mg/dL (74-99); Non-African American GFR(CKD) 88 (>60 ml/min/1.73 sqM); Potassium 3.5 mmol/L (3.5-5.1); Sodium 140 mmol/L (137-145); Total Bilirubin 1.1 mg/dL (0.2-1.3); Total Protein 6.3 g/dL (6.3-8.2)
--- NOTE | 2021-12-14 09:15 | P.PN ---
Subjective Progress Note Date: 12/14/21 Patient was seen and examined. No acute events overnight. Patient reports dysuria. She is however very confused. Appears to have difficulty finding words. She denies any pain. She denies any nausea or vomiting. No fever or chills. She denies any chest pain, shortness of breath or palpitations. General: non toxic, no distress, appears at stated age Derm: Erythema bilateral lower extremities extending from the ankle to mid calf Head: atraumatic, normocephalic, symmetric Eyes: EOMI, no lid lag, anicteric sclera Mouth: no lip lesion, mucus membranes moist Cardiovascular: S1S2 reg, no murmur Lungs: CTA bilateral, no rhonchi, no rales , no accessory muscle use Abdominal: soft, nontender to palpation, no guarding, no appreciable organomegaly Ext: no gross muscle atrophy, 2-3+ BL LE pitting edema, no contractures Neuro: CN II-XI grossly intact, no focal neuro deficits Psych: AO x 1-2, tangential speech, aphasia #Sepsis related to UTI versus cellulitis #Aphasia with tangential speech #Hypertensive urgency #Elevated troponin Resolved: Lactic acidosis Chronic conditions: Dyslipidemia, history of breast cancer Patient meets sepsis criteria with leukocytosis, tachycardia and positive source of infection. Lactic acid is 2.3. Source of infection probably urinary versus cellulitis. Patient has been started on Rocephin. Urine and blood cultures have been collected. Continue normal saline at 125 mL per hour. Telemetry monitoring. CT brain negative for acute changes. Neurology has been consulted for further management of symptoms. Obtain MRI brain. Fall precautions with advanced neurochecks. PT has been consulted. Most recent BP 136/74. Continue amlodipine, hydralazine, losartan, metoprolol. Monitor vitals, adjust medication if necessary. Patient with elevated troponins a 1.21, 1.05, 1.10 with EKG showing right bundle branch block. ACS ruled out. Cardiology has been consulted for further management. Echocardiogram ordered. DVT prophylaxis: Heparin Discussed with: Patient Anticipated discharge: 2-3 days Objective - Vital Signs Vital signs: Vital Signs Temp 98.0 F 12/14/21 03:40 Pulse 65 12/14/21 03:40 Resp 19 12/14/21 03:40 BP 136/74 12/14/21 06:06 Pulse Ox 96 12/14/21 08:27 FiO2 Intake & Output 12/13/21 12/14/21 12/14/21 18:59 06:59 18:59 Output Total 250 Balance -250 Weight 113.398 kg 110.5 kg Output: Urine 250 Other: Voiding Method External Catheter - Labs CBC & Chem 7: 12/14/21 06:13 12/14/21 06:13 Labs: Abnormal Lab Results - Last 24 Hours (Table) 12/13/21 12/13/21 12/13/21 Range/Units 19:14 19:45 19:45 WBC 15.9 H (3.8-10.6) k/uL Neutrophils # 12.8 H (1.3-7.7) k/uL Monocytes # 1.2 H (0-1.0) k/uL BUN 19 H (7-17) mg/dL Glucose 114 H (74-99) mg/dL Plasma Lactic Acid Cody (0.7-2.0) mmol/L Calcium 10.4 H (8.4-10.2) mg/dL AST 48 H (14-36) U/L Troponin I (0.000-0.034) ng/mL Urine Appearance Turbid H (Clear) Urine Protein Trace H (Negative) Urine Ketones Trace H (Negative) Urine Nitrite Positive H (Negative) Ur Leukocyte Esterase Large H (Negative) Urine WBC 34 H (0-5) /hpf Amorphous Sediment Rare H (None) /hpf Urine Mucus Rare H (None) /hpf 12/13/21 12/13/21 12/13/21 Range/Units 19:45 19:45 22:57 WBC (3.8-10.6) k/uL Neutrophils # (1.3-7.7) k/uL Monocytes # (0-1.0) k/uL BUN (7-17) mg/dL Glucose (74-99) mg/dL Plasma Lactic Acid Cody 2.3 H* (0.7-2.0) mmol/L Calcium (8.4-10.2) mg/dL AST (14-36) U/L Troponin I 1.210 H* 1.050 H* (0.000-0.034) ng/mL Urine Appearance (Clear) Urine Protein (Negative) Urine Ketones (Negative) Urine Nitrite (Negative) Ur Leukocyte Esterase (Negative) Urine WBC (0-5) /hpf Amorphous Sediment (None) /hpf Urine Mucus (None) /hpf 12/14/21 12/14/21 12/14/21 Range/Units 01:15 06:13 06:13 WBC 11.0 H (3.8-10.6) k/uL Neutrophils # 7.8 H (1.3-7.7) k/uL Monocytes # (0-1.0) k/uL BUN (7-17) mg/dL Glucose 104 H (74-99) mg/dL Plasma Lactic Acid Cody (0.7-2.0) mmol/L Calcium (8.4-10.2) mg/dL AST 63 H (14-36) U/L Troponin I 1.100 H* (0.000-0.034) ng/mL Urine Appearance (Clear) Urine Protein (Negative) Urine Ketones (Negative) Urine Nitrite (Negative) Ur Leukocyte Esterase (Negative) Urine WBC (0-5) /hpf Amorphous Sediment (None) /hpf Urine Mucus (None) /hpf Microbiology - Last 24 Hours (Table) 12/13/21 19:14 Urine Culture - Preliminary Urine,Voided
[2021-12-14] MEDS: LETROZOLE 2.5 MG TAB PO SCH (09:50)
[2021-12-14] MEDS: ATORVASTATIN 40 MG TAB PO SCH (09:51)
[2021-12-14] MEDS: amLODIPine 10 MG TAB PO SCH (09:51)
[2021-12-14] MEDS: OXYBUTYNIN 10 MG TAB.ER.24 PO SCH (09:52)
[2021-12-14] MEDS: ASPIRIN 81 MG PO SCH (09:52)
[2021-12-14] MEDS: LOSARTAN 50 MG TAB PO SCH (09:52)
[2021-12-14] MEDS ORDERED: CLOPIDOGREL 75 MG TAB PO SCH (12:00)
--- NOTE | 2021-12-14 12:13 | P.CRDCN ---
History of Present Illness Consult date: 12/14/21 History of present illness: HISTORY OF PRESENT ILLNESS: This is a 81-year-old female with a past medical history significant for hypertension and hyperlipidemia. Patient follows in the office with Dr. Markham. We have been asked to see the patient in consultation for elevated troponins. Patient examined at the bedside. Patient presented to the hospital with a chief complaint of altered mental status. Patient has been diagnosed with a urinary tract infection. Neurology has been consulted as well for further evaluation. The patient denies any chest pain or pressure. She denies any shortness of breath. Patient able to answer simple yes or no questions. However, she has "word salad" when trying to elaborate on questions. * EKG reveals sinus mechanism with right bundle branch block * Chest xray no active cardio pulmonary disease * Laboratory data: WBC 15.9. Hemoglobin 13.9. Platelet count 288. Sodium 140. Potassium 3.7. BUN 19. Creatinine 0.72. Lactic acid 2.3. Troponin 1.210. 1.050. 1.100. * Current home cardiac medications include Lipitor 40 mg daily, losartan 100 mrem daily, metoprolol titrate 25 mg twice a day, amlodipine 10 mg daily, hydralazine 25 mg 3 times a day * Most recent echocardiogram obtained in May 2021 revealed ejection fraction 55%, mild mitral regurgitation, mild tricuspid regurgitation * Patient underwent Lexiscan stress test in May 2021 which was negative for ischemia REVIEW OF SYSTEMS: At the time of my exam: CONSTITUTIONAL: Denies fever or chills. HEENT: Denies blurred vision, vision changes, or eye pain. Denies hemoptysis CARDIOVASCULAR: Denies chest pain. Denies orthopnea. Denies PND. Denies palpitations RESPIRATORY: Denies shortness of breath. GASTROINTESTINAL: Denies abdominal pain. Denies nausea or vomiting. HEMATOLOGIC: Denies bleeding disorders. GENITOURINARY: Denies any blood in urine. SKIN: Denies pruitis. Denies rash. PHYSICAL EXAM: VITAL SIGNS: Reviewed. GENERAL: Well-developed in no acute distress. HEENT: Head is normocephalic. Pupils are equal, round. Sclerae anicteric. Mucous membranes of the mouth are moist. Neck supple. No JVD or thyromegaly LUNGS: Respirations even and unlabored. Lungs essentially clear to auscultation bilaterally. HEART: Regular rate and rhythm. S1 and S2 heard. ABDOMEN: Soft. Nondistended. Nontender. EXTREMITIES: Normal range of motion. No clubbing or cyanosis. Peripheral pu lses intact. No lower extremity edema NEUROLOGIC: Awake and alert. ASSESSMENT: Altered mental status Urinary tract infection Abnormal troponins, not suggestive of acute coronary syndrome Hypertension Hyperlipidemia PLAN: An acute coronary and has been ruled out Obtain 2-D echo to assess cardiac structure and function Resume home cardiac medications Neurology following. Patient scheduled for MRI of the brain and carotid ultrasound. Further recommendations pending patient course Nurse practitioner note has been reviewed by physician. Signing provider agrees with the documented findings, assessment, and plan of care. Past Medical History Past Medical History: Cancer, Hyperlipidemia, Hypertension Additional Past Medical History / Comment(s): Current bilateral breast cancer. History of Any Multi-Drug Resistant Organisms: None Reported Past Surgical History: Appendectomy, Breast Surgery, Cholecystectomy, Hysterectomy, Orthopedic Surgery Additional Past Surgical History / Comment(s): Bilateral knee replacement, left breast biopsy, bilateral cataract surgery. Past Anesthesia/Blood Transfusion Reactions: Motion Sickness, Postoperative Nausea & Vomiting (PONV) Past Psychological History: Anxiety Past Alcohol Use History: Rare Past Drug Use History: None Reported - Past Family History Mother Family Medical History: Cancer Additional Family Medical History / Comment(s): Colon cancer. Medications and Allergies Home Medications Medication Instructions Recorded Confirmed Type Ibuprofen [Motrin] 800 mg PO Q8H PRN 10/02/18 12/13/21 History Multivit-Min/Iron/Folic/Lutein 1 tab PO DAILY 10/02/18 12/13/21 History [Centrum Silver Women Tablet] hydrALAZINE HCL [Apresoline] 25 mg PO TID 10/02/18 12/13/21 History ALPRAZolam [Xanax] 0.25 mg PO QID PRN 12/13/21 12/13/21 History Atorvastatin [Lipitor] 40 mg PO DAILY 12/13/21 12/13/21 History Calcium Citrate 600mg 1 tab PO BID 12/13/21 12/13/21 History Cholecalciferol [Vitamin D3 (125 125 mcg PO DAILY 12/13/21 12/13/21 History Mcg = 5000 Iu)] Fluticasone Nasal [place] [Flonase 2 spr EA NOSTRIL DAILY PRN 12/13/21 12/13/21 History Nasal [place]] Letrozole [Femara] 2.5 mg PO DAILY 12/13/21 12/13/21 History Losartan Potassium 100 mg PO DAILY 12/13/21 12/13/21 History Metoprolol Tartrate [Lopressor] 25 mg PO BID 12/13/21 12/13/21 History Oxybutynin Chloride [Ditropan XL] 10 mg PO DAILY 12/13/21 12/13/21 History Quercetin Dihydrate 1 dose PO DAILY 12/13/21 12/13/21 History Zinc Gluconate [Zinc] 50 mg PO DAILY 12/13/21 12/13/21 History amLODIPine [Norvasc] 10 mg PO DAILY 12/13/21 12/13/21 History buPROPion XL [Wellbutrin XL] 150 mg PO DAILY 12/13/21 12/13/21 History Allergies Allergy/AdvReac Type Severity Reaction Status Date / Time codeine AdvReac Confusion Verified 12/13/21 22:21 hydromorphone [From Dilaudid] AdvReac Nausea & Verified 12/13/21 22:21 Vomiting nickel AdvReac Itching Verified 12/13/21 22:21 Physical Exam Vitals: Vital Signs Temp Pulse Pulse Resp BP BP Pulse Ox 12/14/21 08:27 96 12/14/21 08:00 97.9 F 67 18 166/78 96 12/14/21 06:06 136/74 12/14/21 03:40 98.0 F 65 19 184/84 96 12/14/21 02:58 82 19 188/89 97 12/14/21 01:02 98.1 F 73 15 171/96 97 12/13/21 18:42 98.3 F 94 18 201/135 98 Intake and Output 12/13/21 12/14/21 12/14/21 22:59 06:59 14:59 Output Total 250 Balance -250 Output: Urine 250 Other: Voiding Method External Catheter External Catheter Weight 113.398 kg 110.5 kg Results 12/14/21 06:13 12/14/21 06:13 Cardiac Enzymes 12/13/21 12/13/21 12/13/21 Range/Units 19:45 19:45 22:57 AST 48 H (14-36) U/L Troponin I 1.210 H* 1.050 H* (0.000-0.034) ng/mL 12/14/21 12/14/21 Range/Units 01:15 06:13 AST 63 H (14-36) U/L Troponin I 1.100 H* (0.000-0.034) ng/mL Coagulation 12/13/21 Range/Units 19:45 PT 11.0 (9.0-12.0) sec APTT 23.3 (22.0-30.0) sec CBC 12/13/21 12/14/21 Range/Units 19:45 06:13 WBC 15.9 H 11.0 H (3.8-10.6) k/uL RBC 4.93 4.79 (3.80-5.40) m/uL Hgb 13.9 14.0 (11.4-16.0) gm/dL Hct 44.0 43.0 (34.0-46.0) % Plt Count 288 301 (150-450) k/uL Comprehensive Metabolic Panel 12/13/21 12/14/21 Range/Units 19:45 06:13 Sodium 140 140 (137-145) mmol/L Potassium 3.7 3.5 (3.5-5.1) mmol/L Chloride 105 107 (98-107) mmol/L Carbon Dioxide 24 24 (22-30) mmol/L BUN 19 H 15 (7-17) mg/dL Creatinine 0.72 0.59 (0.52-1.04) mg/dL Glucose 114 H 104 H (74-99) mg/dL Calcium 10.4 H 9.7 (8.4-10.2) mg/dL AST 48 H 63 H (14-36) U/L ALT 21 23 (4-34) U/L Alkaline Phosphatase 92 87 (38-126) U/L Total Protein 6.7 6.3 (6.3-8.2) g/dL Albumin 3.9 3.6 (3.5-5.0) g/dL Current Medications Generic Name Dose Route Start Last Admin Trade Name Freq PRN Reason Stop Dose Admin Amlodipine Besylate 10 mg 12/14/21 09:00 12/14/21 09:51 Amlodipine 10 Mg Tab PO 10 mg DAILY [facility] Administration Aspirin 81 mg 12/14/21 09:00 12/14/21 09:52 Aspirin 81 Mg PO 81 mg DAILY [facility] Administration Atorvastatin Calcium 40 mg 12/14/21 09:00 12/14/21 09:51 Atorvastatin 40 Mg Tab PO 40 mg DAILY [facility] Administration Clopidogrel Bisulfate 75 mg 12/14/21 12:00 Clopidogrel 75 Mg Tab PO DAILY [facility] Heparin Sodium (Porcine) 5,000 unit 12/14/21 00:00 12/14/21 09:53 Heparin Sodium,Porcine/Pf 5,000 Unit/0.5 Ml Syringe SQ 5,000 unit Q8HR [facility] Administration Hydralazine HCl 25 mg 12/13/21 23:00 12/14/21 09:51 Hydralazine Hcl 25 Mg Tab PO 25 mg TID [facility] Administration Sodium Chloride 1,000 mls @ 125 mls/hr 12/13/21 21:45 Saline 0.9% IV .Q8H [facility] Ceftriaxone Sodium 1 gm/ 50 mls @ 100 mls/hr 12/14/21 21:00 Sodium Chloride IVPB Q24H [facility] Protocol Letrozole 2.5 mg 12/14/21 09:00 12/14/21 09:50 Letrozole 2.5 Mg Tab PO 2.5 mg DAILY [facility] Administration Losartan Potassium 100 mg 12/14/21 09:00 12/14/21 09:52 Losartan 50 Mg Tab PO 100 mg DAILY [facility] Administration Metoprolol Tartrate 25 mg 12/13/21 23:00 12/14/21 09:51 Metoprolol Tartrate 25 Mg Tab PO 25 mg BID [facility] Administration Oxybutynin Chloride 10 mg 12/14/21 09:00 12/14/21 09:52 Oxybutynin 10 Mg Tab.Er.24 PO 10 mg DAILY [facility] Administration Pantoprazole Sodium 40 mg 12/14/21 07:30 12/14/21 06:57 Pantoprazole 40 Mg Tablet PO 40 mg [id number] [facility] Administration Intake and Output 12/13/21 12/14/21 12/14/21 22:59 06:59 14:59 Output Total 250 Balance -250 Output: Urine 250 Other: Voiding Method External Catheter External Catheter Weight 113.398 kg 110.5 kg 12/14/21 06:13 12/14/21 06:13
--- NOTE | 2021-12-14 14:00 | P.CNNES ---
History of Present Illness Consult date: 12/14/21 Requesting physician: Luisa Camarena Reason for Consult: worsening cognitive impairment, difficulty speaking History of Present Illness: Patient is a 81-year-old right-handed female came to the hospital by ambulance yesterday at 6:40 PM for evaluation of recurrent falls and acute onset of aphasia. Patient at present appears to have significant aphasia, not able to provide any history. I spoke to patient's , who provided with a history. He states that patient and her both have some mild memory disturbance, sometimes would forget words but was still fully conversant. Yesterday patient's went to the [employer] and when he came back home at around 2:15 or 2:30 PM, he found her as if she had fallen on her face into the lazy boy chair. She did not hurt herself. Her slid her off the chair. He called the EMS, and they helped her get up and she was otherwise okay. Apparently later patient was watching TV. She wanted to go to the bathroom. She went in there, and when she did not show up, he went in and found her on the floor. He called the EMS at 5:36 PM. As per EMS flow sheet when they arrived, found patient alert and oriented 2-3 sitting on the carpeted floor. Patient stated that she lost her balance and fell onto the buttocks. Patient denied any injuries or discomfort. Patient's mentioned that she had fallen once before between 1-2 PM while he was at the [facility] and that the fire department had come to pick her up. stated that this time she fell approximately 30 minutes prior to EMS arrival. Patient denied any head neck or back pain or tenderness. Patient was assisted off the floor and into a seated position on her rolling walker. Patient was confused and had a faculty answering most questions by EMS. Patient's stated that patient had brief episodes of confusion, but the confusion has been consistently worse since a fall earlier in the day. Patient also appeared to have expressive aphasia at times, wanting to answer questions but unable to get the words/correct words out. No facial droop or arm drift or slurred speech. EKG shows sinus rhythm. Saturation 92% on room air. Blood glucose 127. Pupils were equal and there was pitting lymphedema in the legs. No chest pain difficulty breathing abdominal pain tenderness nausea vomiting headache dizziness. Her blood pressure was 188/118. It then went up to 213/116, Vital signs arrival blood pressure 201/135 and pulse rate 94 temperature 98.3. Blood test shows a BBC 15.9 hemoglobin 13.9, platelets 288. PT/PTT normal, electrolytes are normal, lactate was 2.3, calcium 10.4, AST mildly elevated 48 with normal ALT 21. Troponins are elevated 1.210. UA shows positive nitrite, large amount of leukocyte esterase. Urine drug screen negative, blood alcohol level negative, coronal virus PCR negative. CT head showed right maxillary sinusitis. Otherwise negative. I personally reviewed CT head, agree with the findings. The right maxillary sinus opacification with internal calcification appears chronic. EKG shows sinus rhythm, right bundle branch block. Chest x-ray showed no active cardiopulmonary disease. Patient has history of hypertension, but no diabetes. No history of tobacco or alcohol use. Patient admits to taking aspirin low dose every day. Per patient's , she did fall about a year ago in December 2020, when her foot got caught on the floor mat and she lost balance and fell. About 3-4 months later, she was waving outside when she turned around to go back inside her home and heard a bang and she was on the ground. She hit her head on the patio table. She had a few other falls in between that fall and the current pr esentations. Even as of yesterday patient was able to speak complete sentences. Patient's states that she does have a cane which she uses for walking. They have bought a walker, but she has not used yet. Per patient's , her speech is not improved back to normal yet. She is still having significant word finding problems, is not talking much. Please refer to examination below. He denies any facial droop, any headaches. Review of Systems Constitutional: Denies chills, Denies fever Eyes: denies blurred vision, denies pain Ears: deny: decreased hearing Ears, nose, mouth and throat: Denies headache, Denies sore throat Cardiovascular: Denies chest pain, Denies shortness of breath Respiratory: Denies cough Gastrointestinal: Denies abdominal pain, Denies diarrhea, Denies nausea, Denies vomiting Genitourinary: Denies dysuria, Denies hematuria Musculoskeletal: Denies myalgias Integumentary: Denies pruritus, Denies rash Neurological: Reports as per HPI Psychiatric: Denies anxiety, Denies depression Endocrine: Denies fatigue, Denies weight change Hematologic/Lymphatic: Denies easy bleeding Allergic/Immunologic: Denies persistent infections Past Medical History Past Medical History: Cancer, Hyperlipidemia, Hypertension Additional Past Medical History / Comment(s): Current bilateral breast cancer. History of Any Multi-Drug Resistant Organisms: None Reported Past Surgical History: Appendectomy, Breast Surgery, Cholecystectomy, Hysterectomy, Orthopedic Surgery Additional Past Surgical History / Comment(s): Bilateral knee replacement, left breast biopsy, bilateral cataract surgery. Past Anesthesia/Blood Transfusion Reactions: Motion Sickness, Postoperative Nausea & Vomiting (PONV) Past Psychological History: Anxiety Past Alcohol Use History: Rare Past Drug Use History: None Reported - Past Family History Mother Family Medical History: Cancer Additional Family Medical History / Comment(s): Colon cancer. Medications and Allergies Home Medications Medication Instructions Recorded Confirmed Type Ibuprofen [Motrin] 800 mg PO Q8H PRN 10/02/18 12/13/21 History Multivit-Min/Iron/Folic/Lutein 1 tab PO DAILY 10/02/18 12/13/21 History [Centrum Silver Women Tablet] hydrALAZINE HCL [Apresoline] 25 mg PO TID 10/02/18 12/13/21 History ALPRAZolam [Xanax] 0.25 mg PO QID PRN 12/13/21 12/13/21 History Atorvastatin [Lipitor] 40 mg PO DAILY 12/13/21 12/13/21 History Calcium Citrate 600mg 1 tab PO BID 12/13/21 12/13/21 History Cholecalciferol [Vitamin D3 (125 125 mcg PO DAILY 12/13/21 12/13/21 History Mcg = 5000 Iu)] Fluticasone Nasal [place] [Flonase 2 spr EA NOSTRIL DAILY PRN 12/13/21 12/13/21 History Nasal [place]] Letrozole [Femara] 2.5 mg PO DAILY 12/13/21 12/13/21 History Losartan Potassium 100 mg PO DAILY 12/13/21 12/13/21 History Metoprolol Tartrate [Lopressor] 25 mg PO BID 12/13/21 12/13/21 History Oxybutynin Chloride [Ditropan XL] 10 mg PO DAILY 12/13/21 12/13/21 History Quercetin Dihydrate 1 dose PO DAILY 12/13/21 12/13/21 History Zinc Gluconate [Zinc] 50 mg PO DAILY 12/13/21 12/13/21 History amLODIPine [Norvasc] 10 mg PO DAILY 12/13/21 12/13/21 History buPROPion XL [Wellbutrin XL] 150 mg PO DAILY 12/13/21 12/13/21 History Allergies Allergy/AdvReac Type Severity Reaction Status Date / Time codeine AdvReac Confusion Verified 12/13/21 22:21 hydromorphone [From Dilaudid] AdvReac Nausea & Verified 12/13/21 22:21 Vomiting nickel AdvReac Itching Verified 12/13/21 22:21 Physical Examination - Vital Signs Vital Signs: Vital Signs Temp Pulse Pulse Resp BP BP Pulse Ox 12/14/21 08:27 96 12/14/21 06:06 136/74 12/14/21 03:40 98.0 F 65 19 184/84 96 12/14/21 02:58 82 19 188/89 97 12/14/21 01:02 98.1 F 73 15 171/96 97 12/13/21 18:42 98.3 F 94 18 201/135 98 Intake and Output 12/13/21 12/14/21 12/14/21 22:59 06:59 14:59 Output Total 250 Balance -250 Output: Urine 250 Other: Voiding Method External Catheter Weight 113.398 kg 110.5 kg Patient is an elderly female, very pleasant, in no acute distress. Patient is alert awake oriented, but has significant expressive aphasia. Patient able to name knuckles, but for ear lobe she would say "ruddy home", for pen patient repeats "ruddy", and for cellphone patient said "[place]". Patient has significant paraphasic errors, expressive aphasia but her comprehension appears intact. She can repeat somewhat better, although with some mistakes. No obvious dysarthria. Attention, concentration intact and fund of knowledge is limited due to aphasia. On cranial nerve examination, pupils are equal, round and reacting to light, visual blackwood are full on confrontation, with no neglect on double simultaneous stimulation. Extraocular muscles are intact with no nystagmus. Face is symmetric, tongue protrudes to the midline. Palatal elevation and sensation normal, hearing and shoulder shrug normal, facial sensation normal. On muscle strength testing, there is no pronator drift and the strength is normal in arms legs distally and proximally. In the lower extremities for hip flexion is about 4, ankle dorsiflexion 5. Deep tendon reflexes are symmetric 2+ in the upper limbs, 1 at the knees and plantars are upgoing bilaterally. Sensory to touch is equal with no neglect on double simultaneous stimulation, although was not very reliable. Cerebellar function showed no ataxia for [id number] testing. Tone and bulk of muscles normal. Gait deferred.. On general examination, there is no carotid bruit or murmur, S1-S2 audible. Chest is clear on consultation. Abdomen is soft nontender. No organomegaly, bowel sounds present. Patient has lymphedema in the lower extremities. Results - Laboratory Findings CBC and BMP: 12/14/21 06:13 12/14/21 06:13 Abnormal Lab Findings: Abnormal Labs 12/13/21 12/13/21 12/13/21 19:14 19:45 19:45 WBC 15.9 H Neutrophils # 12.8 H Monocytes # 1.2 H BUN 19 H Glucose 114 H Plasma Lactic Acid Cody Calcium 10.4 H AST 48 H Troponin I Urine Appearance Turbid H Urine Protein Trace H Urine Ketones Trace H Urine Nitrite Positive H Ur Leukocyte Esterase Large H Urine WBC 34 H Amorphous Sediment Rare H Urine Mucus Rare H 12/13/21 12/13/21 12/13/21 19:45 19:45 22:57 WBC Neutrophils # Monocytes # BUN Glucose Plasma Lactic Acid Cody 2.3 H* Calcium AST Troponin I 1.210 H* 1.050 H* Urine Appearance Urine Protein Urine Ketones Urine Nitrite Ur Leukocyte Esterase Urine WBC Amorphous Sediment Urine Mucus 12/14/21 12/14/21 12/14/21 01:15 06:13 06:13 WBC 11.0 H Neutrophils # 7.8 H Monocytes # BUN Glucose 104 H Plasma Lactic Acid Cody Calcium AST 63 H Troponin I 1.100 H* Urine Appearance Urine Protein Urine Ketones Urine Nitrite Ur Leukocyte Esterase Urine WBC Amorphous Sediment Urine Mucus Assessment and Plan Assessment: * Probable acute ischemic stroke, manifesting with recurrent falls, and significant expressive aphasia. * Hypertension, accelerated, probably due to acute stroke. * Hyperlipidemia * Elevated cardiac enzymes * Acute UTI * Obesity * Lymphedema Plan: * MRI of the brain without contrast, evaluate for acute CVA * 2-D echo with bubble study to rule out PFO * Carotid Doppler, rule out stenosis * Fasting a.m. lipid panel * Hemoglobin A1c * Patient states that she was taking aspirin 81 mg daily. Patient will place on dual antiplatelet medication for now with Plavix 75 mg and aspirin 81 mg. Further management of antiplatelet regimen based upon above test results. * Permissive hypertension for next 24-48 hours, however due to elevated cardiac enzymes, may decrease blood pressure to <180/100, although would recommend against hypotension (<140/70). * Patient currently on Rocephin 1 g IV PB daily for UTI. * Close neuro checks. * Telemetry monitoring rule out any arrhythmia * DVT prophylaxis: Heparin 5000 units subcu every 8 hours * PT OT, speech therapy. * Neurology will continue ot follow. Thank you for the consult. Addendum 6:30 PM: MRI of the brain revealed multiple areas of increased signal on inversion recovery weighted sequences through the deep white matter including cerebellum and brainstem and subcortical changes, slightly greater on the right, are present. No acute ischemic stroke. I personally reviewed MRI of the brain, agree with the findings. 2-D echo revealed normal left ventricular size and wall motion. Left atrial enlargement. Mild mitral regurgitation. Patient apparently spiked a temperature to 103.1 F. Patient's white cells are elevated 11.0. Patient's mental status has got worse. Although infection could be related to acute UTI, but the cultures so far has been negative. Williamson virus PCR negative. We will perform lumbar puncture to rule out encephalitis. We will stop Plavix, as stroke has been ruled out. Patient to be empirically started on acyclovir 10 mg/mg IV every 8 hours. Case discussed with infectious disease specialist. We will increase Rocephin to 2 mg IV every 12 hours. EEG rule out any focal epileptiform activity. Case discussed with patient's daughter, son as well as in detail. They agreed with the management as above. Consented for lumbar puncture. Neurology will follow. Time with Patient: Greater than 30
--- NOTE | 2021-12-14 14:36 | MR ---
EXAMINATION TYPE: MR brain wo con DATE OF EXAM: 12/14/2021 COMPARISON: CT brain 12/13/2021 HISTORY: rule out underlying stroke CONTRAST: Performed utilizing 0 mL intravenous Gadavist gadolinium contrast. TECHNIQUE: Multiplanar, multiecho imaging on a 3.0 Mirian magnet is performed through the brain. Stud y is performed within 24 hours of arrival to the hospital. The craniovertebral junction is normal. The pituitary is normal. Diffusion-weighted imaging is performed. No abnormal hyperintensity is present to suggest an acute i ntracranial infarct or acute ischemic change. There are scattered areas of hyperintensity which are nonspecific but could be related to microvascul ar ischemic change. This includes both deep white matter and some subcortical changes. Changes are ev ident within the cerebellum and brainstem and subcortical regions greater on the right. No suspicious area corresponding to a diffusion-weighted abnormality is identified. Ventricles and sulci are prominent for the patient age. Mucosal thickening through the right maxillary sinus. IMPRESSIONS: 1. Multiple areas of increased signal on inversion recovery weighted sequences through the deep white matter including cerebellum and brainstem and subcortical changes, slightly greater on the right, ar e present. 2. No acute changes by diffusion-weighted imaging.
--- NOTE | 2021-12-14 17:38 | CA ---
Transthoracic Echo Report Name: Hannah Leary Age: 81 Gender: F : 1940 Exam Date: 12/14/2021 14:31 Exam Location: [facility] Ht (in): Wt (lb): Ordering Physician: Bobbi Anne Attending/Referring Phys: [id number], Dayana Bag Printer Kinga Cruz RDCS Procedure CPT: Indications: elevated troponins Cardiac Hx: Technical Quality: Good Contrast 1: Total Dose (mL): Contrast 2: Total Dose (mL): MEASUREMENTS (Male / Female) Normal Values 2D ECHO LV Diastolic Diameter PLAX 5.6 cm 4.2 - 5.9 / 3.9 - 5.3 cm LV Systolic Diameter PLAX 4.1 cm IVS Diastolic Thickness 1.2 cm 0.6 - 1.0 / 0.6 - 0.9 cm LVPW Diastolic Thickness 1.5 cm 0.6 - 1.0 / 0.6 - 0.9 cm LV Relative Wall Thickness 0.5 RV Internal Dim ED PLAX 2.6 cm LA Volume 103.0 cm??? 18 - 58 / 22 - 52 cm??? M-MODE Aortic Root Diameter MM 3.0 cm LA Systolic Diameter MM 4.9 cm LA Ao Ratio MM 1.6 MV E Point Septal Separation 0.2 cm DOPPLER AV Peak Velocity 188.5 cm/s AV Peak Gradient 14.2 mmHg MV Area PHT 3.5 cm??? Mitral E Point Velocity 76.2 cm/s Mitral A Point Velocity 76.2 cm/s Mitral E to A Ratio 1.0 MV Deceleration Time 217.3 ms MV E' Velocity 4.9 cm/s Mitral E to MV E' Ratio 15.7 TR Peak Velocity 191.3 cm/s TR Peak Gradient 14.6 mmHg Right Ventricular Systolic Press 19.6 mmHg FINDINGS Left Ventricle Left ventricular ejection fraction is estimated at 50-55 %. Mildly increased left ventricular wall thickness. Right Ventricle Normal right ventricular size and function. Right ventricular systolic pressure within normal limits. Right Atrium Normal right atrial size. Left Atrium Severely increased left atrial volume. Mildly increased left atrial area. Mitral Valve Structurally normal mitral valve. Mild mitral regurgitation. Aortic Valve Trileaflet aortic valve. Aortic valve sclerosis. Tricuspid Valve Structurally normal tricuspid valve. Pulmonic Valve Pulmonic valve not well visualized. Pericardium Echo free space anterior to the right ventricle likely represents a fat pad. Aorta Aortic root and proximal ascending aorta not well visualized. CONCLUSIONS Normal left ventricular size wall motion systolic function Left atrial enlargement Mild mitral regurgitation Previewed by: Dr. Taco Jewell MD (Electronically Signed) Final Date: 14 December 2021 17:37
[2021-12-14] MEDS: ACETAMINOPHEN TAB 325 MG TAB PO PRN (18:29)
[2021-12-14] MEDS ORDERED: LORazepam 1 MG/0.5 ML VIAL IV PRN (19:07)
[2021-12-14] MEDS: SODIUM CHLORIDE 0.9% 1,000 ML IV SCH ×4 (21:36→23:18)
[2021-12-14] MEDS: ACYCLOVIR SODIUM 700 MG in SODIUM CHLORIDE 0.9% 100 ML IVPB SCH (21:57)
[2021-12-15] MEDS: HEPARIN SODIUM,PORCINE/PF 5,000 UNIT/0.5 ML SYRINGE SQ SCH ×2 (00:28→10:01)
[2021-12-15] MEDS: ACYCLOVIR SODIUM 700 MG in SODIUM CHLORIDE 0.9% 100 ML IVPB SCH ×3 (04:44→21:21)
[2021-12-15] MEDS: SODIUM CHLORIDE 0.9% 1,000 ML IV SCH ×3 (06:40→20:24)
[2021-12-15] MEDS: PANTOPRAZOLE 40 MG TABLET PO SCH (06:40)
[2021-12-15] MEDS: amLODIPine 10 MG TAB PO SCH (09:58)
[2021-12-15] MEDS: hydrALAZINE HCL 25 MG TAB PO SCH ×3 (09:58→21:22)
[2021-12-15] MEDS: ATORVASTATIN 40 MG TAB PO SCH (09:58)
[2021-12-15] MEDS: LOSARTAN 50 MG TAB PO SCH (09:59)
[2021-12-15] MEDS: METOPROLOL TARTRATE 25 MG TAB PO SCH ×2 (09:59→21:22)
[2021-12-15] MEDS: ASPIRIN 81 MG PO SCH (09:59)
[2021-12-15] MEDS: OXYBUTYNIN 10 MG TAB.ER.24 PO SCH (10:00)
[2021-12-15] MEDS: LETROZOLE 2.5 MG TAB PO SCH (10:01)
--- NOTE | 2021-12-15 12:21 | P.PN ---
Subjective Progress Note Date: 12/15/21 HISTORY OF PRESENT ILLNESS: This is a 81-year-old female with a past medical history significant for hypertension and hyperlipidemia. Patient follows in the office with Dr. Markham. We have been asked to see the patient in consultation for elevated troponins. Patient examined at the bedside. Patient presented to the hospital with a chief complaint of altered mental status. Patient has been diagnosed with a urinary tract infection. Neurology has been consulted as well for further evaluation. The patient denies any chest pain or pressure. She denies any shortness of breath. Patient able to answer simple yes or no questions. However, she has "word salad" when trying to elaborate on questions. * EKG reveals sinus mechanism with right bundle branch block * Chest xray no active cardio pulmonary disease * Laboratory data: WBC 15.9. Hemoglobin 13.9. Platelet count 288. Sodium 140. Potassium 3.7. BUN 19. Creatinine 0.72. Lactic acid 2.3. Troponin 1.210. 1.050. 1.100. * Current home cardiac medications include Lipitor 40 mg daily, losartan 100 mrem daily, metoprolol titrate 25 mg twice a day, amlodipine 10 mg daily, hydralazine 25 mg 3 times a day * Most recent echocardiogram obtained in May 2021 revealed ejection fraction 55%, mild mitral regurgitation, mild tricuspid regurgitation * Patient underwent Lexiscan stress test in May 2021 which was negative for ischemia 12/15/2021 Patient examined this morning at the bedside. She denies chest pain or pressure. Denies SOB. Her speech has improved somewhat today. Neurology is following. E chocardiogram completed revealing EF 55%. Vital signs are stable. PHYSICAL EXAM: VITAL SIGNS: Reviewed. GENERAL: Well-developed in no acute distress. HEENT: Head is normocephalic. Pupils are equal, round. Sclerae anicteric. Mucous membranes of the mouth are moist. Neck supple. No JVD or thyromegaly LUNGS: Respirations even and unlabored. Lungs essentially clear to auscultation bilaterally. HEART: Regular rate and rhythm. S1 and S2 heard. ABDOMEN: Soft. Nondistended. Nontender. EXTREMITIES: Normal range of motion. No clubbing or cyanosis. Peripheral pulses intact. No lower extremity edema NEUROLOGIC: Awake and alert. ASSESSMENT: Altered mental status Urinary tract infection Abnormal troponins, not suggestive of acute coronary syndrome Hypertension Hyperlipidemia PLAN: Continue current cardiac medications Continue workup per neurology Patient is currently stable from a cardiac standpoint. We will sign off. Pleas e reconsult if needed. Nurse practitioner note has been reviewed by physician. Signing provider agrees with the documented findings, assessment, and plan of care. Objective - Vital Signs Vital signs: Vital Signs Temp 98.0 F 12/15/21 11:40 Pulse 68 12/15/21 11:40 Resp 18 12/15/21 11:40 BP 155/69 12/15/21 11:40 Pulse Ox 96 12/15/21 11:40 FiO2 Intake & Output 12/14/21 12/15/21 12/15/21 18:59 06:59 18:59 Intake Total 240 30 Output Total 1000 900 100 Balance -760 -870 -100 Weight 110.5 kg 112 kg Intake: IV 30 Invasive Line 1 10 Invasive Line 2 10 Invasive Line 3 10 Oral 240 Output: Urine 1000 900 100 Other: Voiding Method External Catheter External Catheter External Catheter - Labs CBC & Chem 7: 12/14/21 06:13 12/14/21 06:13 Labs: Microbiology - Last 24 Hours (Table) 12/13/21 19:30 Blood Culture - Preliminary Blood No Growth after 24 hours 12/13/21 19:45 Blood Culture - Preliminary Blood No Growth after 24 hours 12/13/21 19:14 Urine Culture - Preliminary Urine,Voided
--- NOTE | 2021-12-15 12:50 | P.PN ---
Progress Note - Text Progress Note Date: 12/15/21 Ms. Leary was consulted for lumbar puncture , CSF collection for analysis. Patient received one dose of Plavix 75 mg on 12/14/2021, and heparin 12/15/2021. Discussed with Dr. Acosta. Recommended to do a lumbar puncture after 4-5 days of the lost dose of the Plavix, and hold heparin 24 h before the procedure.
--- NOTE | 2021-12-15 13:16 | P.PN ---
Subjective Progress Note Date: 12/15/21 Principal diagnosis: Sepsis Patient this morning thought that I was Dr. Markham. She did not believe me when I told her that I am Dr. Roa. Patient is answering questions however is at times speaking incoherently. is at bedside. Per patient mental status is better today compared to yesterday. Today's the first time I'm seeing the patient. Patient did have high-grade fevers yesterday. She has been started on IV Rocephin and acyclovir. I spoke with the nurse was said that anesthesiology can do the LP tomorrow if we hold anticoagulation for 24 hours. Objective - Vital Signs Vital signs: Vital Signs Temp 98.0 F 12/15/21 11:40 Pulse 68 12/15/21 11:40 Resp 18 12/15/21 11:40 BP 155/69 12/15/21 11:40 Pulse Ox 96 12/15/21 11:40 FiO2 Intake & Output 12/14/21 12/15/21 12/15/21 18:59 06:59 18:59 Intake Total 240 30 Output Total 1000 900 100 Balance -760 -870 -100 Weight 110.5 kg 112 kg Intake: IV 30 Invasive Line 1 10 Invasive Line 2 10 Invasive Line 3 10 Oral 240 Output: Urine 1000 900 100 Other: Voiding Method External Catheter External Catheter External Catheter - Exam General examination - Alert and Oriented 1 in NAD Heart - + S1S2 no murmurs Lungs - Clear to auscultation Abdomen soft NT ND +ve BS, morbidly obese Extremities -edema in bilateral lower extremity 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 extremities 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 Psych -mild to moderately confused - Labs CBC & Chem 7: 12/14/21 06:13 12/14/21 06:13 Labs: Microbiology - Last 24 Hours (Table) 12/13/21 19:30 Blood Culture - Preliminary Blood No Growth after 24 hours 12/13/21 19:45 Blood Culture - Preliminary Blood No Growth after 24 hours Assessment and Plan Assessment: Sepsis Suspect possible meningitis as the source since patient has fever and altered mental status 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 was at bedside and he states that she is doing much better today compared to yesterday. MRI negative for acute stroke EEG pending Carotid Doppler pending Echocardiogram is unremarkable Neurology on board Hypertension urgency Continue current BP meds regimen Blood pressure better controlled this morning Elevated troponin likely type II in the setting of sepsis Cardiology signed off Echocardiogram unremarkable DVT prophylaxis: Holding anticoagulation for lumbar puncture
--- NOTE | 2021-12-15 14:41 | US ---
EXAMINATION TYPE: US carotid duplex BILAT DATE OF EXAM: 12/15/2021 COMPARISON: NONE CLINICAL HISTORY: CVA. CVA TECHNIQUE: Carotid duplex ultrasound examination. Indirect Doppler criteria was utilized. FINDINGS: EXAM MEASUREMENTS: RIGHT: Peak Systolic Velocity (PSV) cm/sec ----- Right CCA: 66.0 ----- Right ICA: 72.1 ----- Right ECA: 80.9 ICA/CCA ratio: 1.1 RIGHT: End Diastole cm/sec ----- Right CCA: 11.9 ----- Right ICA: 11.9 ----- Right ECA: 5.1 LEFT: Peak Systolic Velocity (PSV) cm/sec ----- Left CCA: 77.6 ----- Left ICA: 86.4 ----- Left ECA: 94.0 ICA/CCA ratio: 1.1 LEFT: End Diastole cm/sec ----- Left CCA: 8.4 ----- Left ICA: 12.8 ----- Left ECA: 9.8 VERTEBRALS (direction of flow): Right Vertebral: Antegrade Left Vertebral: Antegrade Rhythm: Normal SALVAGE CUTTER NOTES: Exam is limited due to patient's limited neck mobility and patient snoring. No tanika vated velocities at this time. Plaque seen within bilateral bulbs. IMPRESSION: Limited exam with less than 50% stenosis of the bilateral carotid bifurcations. Criteria for Assigning % of Stenosis / Diameter reduction (Estimation based on the indirect measurements of the internal carotid artery velocities (ICA PSV). 1. Normal (no stenosis)=ICA PSV < 125 cm/s: ratio < 2.0: ICA EDV<40 cm/s. 2. Less than 50% stenosis=ICA PSV < 125 cm/s: ratio < 2.0: ICA EDV<40 cm/s. 3. 50 to 69% stenosis=ICA PSV of 125 to 230 cm/s: ration 2.0 ? 4.0: ICA EDV 40-100 cm/s. 4. Greater than 70% stenosis to near occlusion= ICA PSV > 230 cm/s: ratio > 4.0: ICA EDV > 100 cm/s. 5. Near occlusion= ICA PSV velocities may be low or undetectable: variable ratio and ICA EDV. 6. Total occlusion=unable to detect flow.
--- NOTE | 2021-12-15 22:48 | P.CONS ---
History of Present Illness - Reason for Consult Consult date: 12/15/21 uti , mental status Requesting physician: Marcel Abraham - Chief Complaint weakness and fall x 1 day - History of Present Illness History of Present Illness : Patient is a 81-year-old female presenting to the ER 2 days ago on 12/13/2021 for evaluation of expressive a phasia and mental status changes. The patient has fallen twice a day of presentation to the hospital and was having difficulty forming words, patient denies having any headache no URI symptoms no chest pain shortness of breath or cough no abdominal pain or diarrhea patient on presentation to the hospital was afebrile however she did spike a fever of 103 F last evening, patient also have a elevated white count of 15.9 on admission is down to 11,000 yesterday creatinine was normal lactic acid was elevated liver simply normal troponins are elevated blood cultures obtained are currently pending patient did have a chest x-ray that was negative for acute cardiopulmonary disease patient was started on Rocephin acyclovir was added yesterday concern for possible encephalitis infectious disease was consulted for further management of antibiotic therapy Review of system: CONSTITUTIONAL: Positive for weakness fever. EYES: No complaint. ENT: No complaint. RESPIRATORY: No complaint. CARDIOVASCULAR: No complaint. GENITOURINARY: As per history of present illness GASTROINTESTINAL: No complaint. MUSCULOSKELETAL: No complaint. INTEGUMENTARY : No complaint. PSYCHOLOGIC: No complaint. ENDOCRINE: No complaint. NEUROLOGIC: As per history of present illness Past medical history : Reviewed, documented below Past surgical history : Reviewed, documented below Social history: Reviewed, documented below Medications: Reviewed, as documented below EXAMINATION: Vital sigans= Reviewed and documented below GENERAL DESCRIPTION: Elderly female lying in bed, no distress. No tachypnea or accessory muscle of respiration use. HEENT: Shows Pallor , no scleral icterus. Oral mucous membrane is dry. NECK: Trachea central, no thyromegaly. LUNGS: Unlabored breathing. Clear to auscultation anteriorly. No wheeze or crackle. HEART: S1, S2, regular rate and rhythm. ABDOMEN: Soft, no tenderness , guarding or rigidity EXTREMITIES: No edema feet SKIN: No rash, no masses palpable. NEUROLOGICAL: The patient is awake, alert, oriented x3, mood and affect normal. LABS AND RADIOLOGY: Reviewed results see below Assessment : 1patient presented to hospital with sepsis in this patient who do have a fever did have elevated white count positive UA high clinic suspicious for UTI/pyelonephritis to be the etiology of her illness clinically doubt encephalitis or meningitis in this patient with no headache photophobia or neck rigidity Plan: 1-discontinue acyclovir 2-switch Rocephin to 2 g daily 3-check ultrasound of the kidney and the bladder area We will follow on clinical condition and cultures to further adjust medication if needed Thank you for this consultation we will follow the patient along with you Past Medical History Past Medical History: Cancer, Hyperlipidemia, Hypertension Additional Past Medical History / Comment(s): Current bilateral breast cancer. History of Any Multi-Drug Resistant Organisms: None Reported Past Surgical History: Appendectomy, Breast Surgery, Cholecystectomy, Hysterectomy, Orthopedic Surgery Additional Past Surgical History / Comment(s): Bilateral knee replacement, left breast biopsy, bilateral cataract surgery. Past Anesthesia/Blood Transfusion Reactions: Motion Sickness, Postoperative N ausea & Vomiting (PONV) Past Psychological History: Anxiety Past Alcohol Use History: Rare Past Drug Use History: None Reported - Past Family History Mother Family Medical History: Cancer Additional Family Medical History / Comment(s): Colon cancer. Medications and Allergies Home Medications Medication Instructions Recorded Confirmed Type Ibuprofen [Motrin] 800 mg PO Q8H PRN 10/02/18 12/13/21 History Multivit-Min/Iron/Folic/Lutein 1 tab PO DAILY 10/02/18 12/13/21 History [Centrum Silver Women Tablet] hydrALAZINE HCL [Apresoline] 25 mg PO TID 10/02/18 12/13/21 History ALPRAZolam [Xanax] 0.25 mg PO QID PRN 12/13/21 12/13/21 History Atorvastatin [Lipitor] 40 mg PO DAILY 12/13/21 12/13/21 History Calcium Citrate 600mg 1 tab PO BID 12/13/21 12/13/21 History Cholecalciferol [Vitamin D3 (125 125 mcg PO DAILY 12/13/21 12/13/21 History Mcg = 5000 Iu)] Fluticasone Nasal [place] [Flonase 2 spr EA NOSTRIL DAILY PRN 12/13/21 12/13/21 History Nasal [place]] Letrozole [Femara] 2.5 mg PO DAILY 12/13/21 12/13/21 History Losartan Potassium 100 mg PO DAILY 12/13/21 12/13/21 History Metoprolol Tartrate [Lopressor] 25 mg PO BID 12/13/21 12/13/21 History Oxybutynin Chloride [Ditropan XL] 10 mg PO DAILY 12/13/21 12/13/21 History Quercetin Dihydrate 1 dose PO DAILY 12/13/21 12/13/21 History Zinc Gluconate [Zinc] 50 mg PO DAILY 12/13/21 12/13/21 History amLODIPine [Norvasc] 10 mg PO DAILY 12/13/21 12/13/21 History buPROPion XL [Wellbutrin XL] 150 mg PO DAILY 12/13/21 12/13/21 History Allergies Allergy/AdvReac Type Severity Reaction Status Date / Time codeine AdvReac Confusion Verified 12/13/21 22:21 hydromorphone [From Dilaudid] AdvReac Nausea & Verified 12/13/21 22:21 Vomiting nickel AdvReac Itching Verified 12/13/21 22:21 Physical Exam Vitals: Vital Signs Temp Pulse Resp BP Pulse Ox 12/15/21 08:00 98.6 F 85 18 165/61 95 12/15/21 04:00 98.9 F 74 18 128/68 96 12/15/21 00:00 99.1 F 72 18 124/72 96 12/14/21 22:00 99.7 F H 12/14/21 19:59 101.7 F H 80 18 128/63 95 12/14/21 18:34 103.1 F H 12/14/21 15:47 100.5 F H 64 20 158/82 97 12/14/21 14:00 64 20 12/14/21 12:00 97.5 F L 64 18 159/71 97 Intake and Output 12/14/21 12/15/21 12/15/21 22:59 06:59 14:59 Intake Total 20 10 Output Total 1000 900 Balance -980 -890 Intake: IV 20 10 Invasive Line 1 10 Invasive Line 2 10 Invasive Line 3 10 Output: Urine 1000 900 Other: Voiding Method External Catheter External Catheter External Catheter Weight 112 kg Results CBC & Chem 7: 12/14/21 06:13 12/14/21 06:13 Labs: Microbiology - Last 24 Hours (Table) 12/13/21 19:30 Blood Culture - Preliminary Blood No Growth after 24 hours 12/13/21 19:45 Blood Culture - Preliminary Blood No Growth after 24 hours 12/13/21 19:14 Urine Culture - Preliminary Urine,Voided
--- NOTE | 2021-12-16 01:22 | EEG ---
ELECTROENCEPHALOGRAM REPORT PREAMBLE: This is a 81-year-old female with acute onset of aphasia, altered mental status with recent high temperature. This study is performed to rule out any herpes encephalitis or seizures. EEG FINDINGS: This is a 21-channel digital EEG recorded with video component, utilizing 10/20 international system with referential and bipolar montages. Background consists of moderately well-developed and regulated, moderate amplitude 6 to 7 hertz theta activity intermixed with some delta slowing in bihemispheric region. Some periods of suppression lasting for 1 second was seen frequently during the study. A lot of myogenic activity was seen in bitemporal region making this study technically limited in general. Rare left temporal sharp appearing waves were seen, which did not appear clearly epileptiform. Different stages of sleep were not seen. EKG channel showed no obvious arrhythmia. Hyperventilation and photic stimulation were not performed. IMPRESSION: This is an abnormal EEG due to background slowing of [id number] degree, suggestive of generalized cerebral dysfunction as can be seen with toxic metabolic encephalopathy or due to diffuse structural brain abnormality. Clinical correlation is recommended. The study was technically limited because of significant myogenic activity seen in bitemporal region during most of the study. Occasional left temporal sharp appearing waves were seen, which did not appear clearly epileptiform. Suggest prolonged, sleep-deprived EEG for further evaluation, if your suspicion for seizures is high. MMODL / IJN: [id number] /
[2021-12-16] MEDS: PANTOPRAZOLE 40 MG TABLET PO SCH (06:30)
[2021-12-16] MEDS: SODIUM CHLORIDE 0.9% 1,000 ML IV SCH (06:35)
--- NOTE | 2021-12-16 08:47 | US ---
EXAMINATION TYPE: US kidneys/renal and bladder DATE OF EXAM: 12/16/2021 COMPARISON: NONE CLINICAL HISTORY: uti and bacteremia. UTI bacteremia. EXAM MEASUREMENTS: Right Kidney: 12.8 x 5.9 x 5.3 cm Left Kidney: 13.2 x 6.2 x 6.5 cm Exam is extremely limited due to gas and patient body habitus. Right Kidney: Cortical medullary differentiation is normal bilaterally, there is no evident hydroneph rosis or perinephric fluid, no pathologic calcification or cortical mass. Left Kidney: No hydronephrosis. Bladder: Not fully distended.Unable to properly evaluate. Bilateral Jets seen: No IMPRESSION: No abnormality evident to account for patient's symptoms within the limitations of the exam
[2021-12-16] MEDS: amLODIPine 10 MG TAB PO SCH (09:11)
[2021-12-16] MEDS: hydrALAZINE HCL 25 MG TAB PO SCH ×3 (09:12→21:01)
[2021-12-16] MEDS: ASPIRIN 81 MG PO SCH (09:12)
[2021-12-16] MEDS: ATORVASTATIN 40 MG TAB PO SCH (09:12)
[2021-12-16] MEDS: OXYBUTYNIN 10 MG TAB.ER.24 PO SCH (09:13)
[2021-12-16] MEDS: LOSARTAN 50 MG TAB PO SCH (09:13)
[2021-12-16] MEDS: METOPROLOL TARTRATE 25 MG TAB PO SCH ×2 (09:13→21:01)
[2021-12-16 09:18] LABS: Basophils % (A) 0 %; Eosinophils # (A) 0.1 k/uL (0-0.7); Eosinophils % (A) 1 %; HCT 40.3 % (34.0-46.0); HGB 13.2 gm/dL (11.4-16.0); Lymphocytes # (A) 0.8 k/uL (1.0-4.8); Lymphocytes % (A) 6 %; MCH 29.6 pg (25.0-35.0); MCHC 32.9 g/dL (31.0-37.0); MCV 89.9 fL (80.0-100.0); Mean Platelet Volume 8.3; Monocytes # (A) 0.8 k/uL (0-1.0); Monocytes % (A) 6 %; Neutrophils # (A) 12.1 k/uL (1.3-7.7); Neutrophils % (A) 87 %; Platelet Count 264 k/uL (150-450); RBC 4.48 m/uL (3.80-5.40); RDW 14.5 % (11.5-15.5); WBC 13.9 k/uL (3.8-10.6)
[2021-12-16 09:26] LABS: ALT 34 U/L (4-34); AST 53 U/L (14-36); African American GFR (CKD) >90 (>60 ml/min/1.73 sqM); Albumin 2.9 g/dL (3.5-5.0); Alkaline Phosphatase 86 U/L (38-126); Anion Gap 9 mmol/L; Blood Urea Nitrogen 13 mg/dL (7-17); Calcium 8.8 mg/dL (8.4-10.2); Carbon Dioxide 19 mmol/L (22-30); Chloride 108 mmol/L (98-107); Glucose 164 mg/dL (74-99); Non-African American GFR(CKD) >90 (>60 ml/min/1.73 sqM); Sodium 136 mmol/L (137-145); Total Protein 5.6 g/dL (6.3-8.2)
[2021-12-16] MEDS: LETROZOLE 2.5 MG TAB PO SCH (10:28)
--- NOTE | 2021-12-16 10:56 | P.PN ---
Subjective Progress Note Date: 12/15/21 Patient was seen for a follow-up. Patient's daughters were present. Patient is slightly more mentally clear. She woke up much more clear. Patient has been sleeping a lot. However still having some significant speech difficulty. Objective - Vital Signs Vital signs: Vital Signs Temp 98.0 F 12/15/21 11:40 Pulse 68 12/15/21 11:40 Resp 18 12/15/21 11:40 BP 155/69 12/15/21 11:40 Pulse Ox 96 12/15/21 11:40 FiO2 Intake & Output 12/14/21 12/15/21 12/15/21 18:59 06:59 18:59 Intake Total 240 30 90 Output Total 1000 900 100 Balance -760 -870 -10 Weight 110.5 kg 112 kg Intake: IV 30 Invasive Line 1 10 Invasive Line 2 10 Invasive Line 3 10 Oral 240 90 Output: Urine 1000 900 100 Other: Voiding Method External Catheter External Catheter External Catheter - Exam Patient is very somnolent. She easily drifts back to sleep. Patient able to name knuckles, ear, but not the ear lobe. She was able to name the button, but not buttonhole. She can repeat better. Her face is symmetric and tongue protr udes the midline. Visual blackwood appears normal. Muscle strength is normal. Tone is equal. - Labs CBC & Chem 7: 12/16/21 08:51 12/16/21 08:51 Labs: Microbiology - Last 24 Hours (Table) 12/13/21 19:14 Urine Culture - Preliminary Urine,Voided Gram Neg Bacilli 12/13/21 19:30 Blood Culture - Preliminary Blood No Growth after 24 hours 12/13/21 19:45 Blood Culture - Preliminary Blood No Growth after 24 hours Assessment and Plan Assessment: * Acute encephalopathy, with expressive aphasia, unclear etiology. No evidence of an acute stroke on MRI brain. Acute encephalopathy possible due to acute UTI versus hypertensive encephalopathy. Rule out herpes encephalitis. * Hypertension, accelerated. * Hyperlipidemia * Elevated cardiac enzymes * Acute UTI with gram-negative bacilli * Obesity * Lymphedema Plan: * MRI of the brain revealed multiple areas of increased signal on inversion recovery weighted sequences through the deep white matter including cerebellum and brainstem and subcortical changes, slightly greater on the right, are pre sent. No acute ischemic stroke. I personally reviewed MRI of the brain, agree with the findings. * Carotid Doppler revealed less than 50% stenosis bilateral ICA. Antegrade flow in both vertebral arteries. * 2-D echo revealed normal left ventricular size and wall motion. Left atrial enlargement. Mild mitral regurgitation. * Patient apparently spiked a temperature to 103.1 F. Patient's white cells are elevated 11.0. Patient's mental status has got worse. Although infection could be related to acute UTI, but the cultures so far has been negative. Williamson virus PCR negative. * EEG was abnormal due to background slowing of moderate to severe degree, suggestive of generalized cerebral dysfunction as can be seen with toxic metabolic encephalopathy or due to diffuse structural brain abnormality. The study was technically limited because of significant myogenic activity, seen in bitemporal region during most of the study. Occasional left temporal sharp-appearing waves were seen, which did not appear clearly epileptiform. Suggest prolonged, sleep deprived EEG for further evaluation if your suspicion for seizures is high. Patient currently on acyclovir. * Urine has grown gram-negative bacilli. Patient on ceftriaxone 2 g every 24 hours. * Check B12, folate, TSH, A1c, lipid panel. * Plavix held because of negative MRI of the brain. Continue aspirin 81 mg. LP pending because receiving one dose of Plavix.
[2021-12-16] MEDS ORDERED: ACYCLOVIR SODIUM 700 MG in SODIUM CHLORIDE 0.9% 100 ML IVPB SCH (12:00)
--- NOTE | 2021-12-16 12:26 | CDI ---
Documentation Clarification Form Date: 12/16/2021 12:10:48 PM From: Shelly Shabazz CCS, CCDS Admit Date: 12/13/2021 09:36:00 PM Patient Name: Hannah Leary Visit Number: [id number] Discharge Date: ATTENTION: The Clinical Documentation Specialists (CDI) and [facility] Coding Staff appreciate your assistance in clarifying documentation. Please respond to the clarification below the line at the bottom and electronically sign. The CDI & [facility] Coding staff will review the response and follow-up if needed. Please note: Queries are made part of the Legal Health Record. If you have any questions, please contact the author of this message via ITS. Dr. Justine Roa: Elevated Troponin likely Type II in the setting of Sepsis without further specification. Additional clarification regarding is requested. Patient History/Risk Factors per the 12/13 H/P: Hypertension, Hyperlipidemia, Current Bilateral Breast Cancer, Mild Cognitive Impairment, Anxiety. Clinical Indicators: Presented to the ED on 12/13 via EMS with Altered Mental Status, expressive aphasia, reportedly had several falls and having difficulty with words. Alert & Oriented x3 on exam but appears to be confused. Admit with falls, altered mental status, UTI and elevated Troponins. 12/13 VS: T 98.3, P 94, R 18, BP 201/135, PO 98 2Lnc, BMI: 46.2 12/13 LAB: WBC 15.9, Neutrophils 12.8, Monocytes 1.2; BUN 19, Glucose 114, Lactic Acid 2.3, Calcium 10.4, AST 48, 12/13 Troponins: 1.210, 1.050. 12/14: 1.100. 12/13 EKG: R 77 Sinus rhythm, RBBB, Left anterior fascicular block. 12/13 CXR: No active cardiopulmonary disease. 12/14 ECHO: Normal left ventricle size wall motion systolic function, EF 50-55%. Mild MR, Aortic valve sclerosis. 12/14 Cardiology Consult: Abnormal Troponins, not suggestive of Acute Coronary Syndrome. Treatment 12/13: Telemetry, Heart Healthy Diet, O2 2Lnc, po Aspirin 324 mg x1, IV Rocephin 50 mls @ 100 mls/hr x1, IV Na Chl 500 mls @ 999 mls/hr q31M, IV Na Chl 1,000 mls @ 125 mls/hr q8H, po Apresoline 25 mg TID, po Lopressor 25 mg BID, po Catapres 0.2 mg QID/prn. Please further clarify the documented Type II: [ ] Type 2 TX due to Sepsis [ ] Type 2 TX due to other (please specify ) [ ] Unable to determine [ ] Other Condition, please specify Please see my note (Template Last Revised: May 2020) MTDD
--- NOTE | 2021-12-16 12:45 | P.PN ---
Subjective Progress Note Date: 12/16/21 Principal diagnosis: Sepsis Patient this morning was delirious. She is on answering to any of my questions. She is also not following any commands. I did speak to the nurse who said the patient was talking earlier in the morning. Objective - Vital Signs Vital signs: Vital Signs Temp 101.7 F H 12/16/21 11:48 Pulse 68 12/16/21 11:48 Resp 18 12/16/21 11:48 BP 129/75 12/16/21 11:48 Pulse Ox 92 L 12/16/21 11:48 FiO2 Intake & Output 12/15/21 12/16/21 12/16/21 18:59 06:59 18:59 Intake Total 208 118 Output Total 750 650 Balance -542 -650 118 Weight 111 kg Intake: Oral 208 118 Output: Urine 750 650 Other: Voiding Method External Catheter External Catheter External Catheter - Exam General examination - Alert and Oriented 0 in NAD, appears chronically debilitated Heart - + S1S2 no murmurs Lungs - Clear to auscultation Abdomen soft NT ND +ve BS, morbidly obese Extremities -edema in bilateral lower extremity 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 Psych -delirious - Labs CBC & Chem 7: 12/16/21 08:51 12/16/21 08:51 Labs: Abnormal Lab Results - Last 24 Hours (Table) 12/16/21 12/16/21 Range/Units 08:51 08:51 WBC 13.9 H (3.8-10.6) k/uL Neutrophils # 12.1 H (1.3-7.7) k/uL Lymphocytes # 0.8 L (1.0-4.8) k/uL Sodium 136 L (137-145) mmol/L Potassium 3.0 L (3.5-5.1) mmol/L Chloride 108 H (98-107) mmol/L Carbon Dioxide 19 L (22-30) mmol/L Glucose 164 H (74-99) mg/dL AST 53 H (14-36) U/L Total Protein 5.6 L (6.3-8.2) g/dL Albumin 2.9 L (3.5-5.0) g/dL Microbiology - Last 24 Hours (Table) 12/13/21 19:30 Blood Culture - Preliminary Blood No Growth after 48 hours 12/13/21 19:45 Blood Culture - Preliminary Blood No Growth after 48 hours 12/13/21 19:14 Urine Culture - Preliminary Urine,Voided Gram Neg Bacilli Assessment and Plan Assessment: Sepsis Likely due to UTI Neurology order for lumbar puncture Awaiting for anesthesiology to do a lumbar puncture Holding Plavix and subcu heparin for lumbar puncture I agree with infectious disease that likely sources UTI since patient does not have any photophobia or neck rigidity Patient on IV Rocephin. Infectious disease recommended to discontinue IV acyclovir Follow up on blood culture negative to date Urine culture growing gram-negative bacilli Ultrasound was limited but negative for pyelonephritis Patient continues to have high-grade fevers WBC is trending back up Acute toxic encephalopathy Patient's mental status was more altered today when I went to see her. However per nurse patient was speaking earlier. Currently patient is delirious consistent with toxic encephalopathy. MRI negative for acute stroke EEG consistent with toxic metabolic encephalopathy Carotid Doppler negative for high-grade stenosis Echocardiogram is unremarkable Neurology on board Hypertension urgency Continue current BP meds regimen Blood pressure better controlled this morning Type II WI secondary to sepsis Cardiology signed off Echocardiogram unremarkable DVT prophylaxis: Holding anticoagulation for lumbar puncture
[2021-12-16] MEDS: ACETAMINOPHEN TAB 325 MG TAB PO PRN (12:48)
[2021-12-16] MEDS: POTASSIUM CHLORIDE ER 20 MEQ TAB.ER PO SCH ×2 (12:48→17:50)
--- NOTE | 2021-12-16 15:40 | P.PN ---
Subjective Progress Note Date: 12/16/21 Principal diagnosis: Fever Patient is a 81-year Old female presenting to the hospital few days ago for evaluation of expressive aphasia mental status changes initial work-up for CVA that was negative subsequent spike of fever and there was concern for urinary source. On today's evaluation that is 12/16/2021 the patient was afebrile this morning however she did spike a fever of 101.7 F around noon the patient is slightly more lethargic today however hemodynamically stable and not requiring any supplemental oxygen no vomiting or diarrhea was reported by nursing staff patient has not was elevated good historian today Objective - Vital Signs Vital signs: Vital Signs Temp 101.7 F H 12/16/21 11:48 Pulse 68 12/16/21 11:48 Resp 18 12/16/21 11:48 BP 129/75 12/16/21 11:48 Pulse Ox 92 L 12/16/21 11:48 FiO2 Intake & Output 12/15/21 12/16/21 12/16/21 18:59 06:59 18:59 Intake Total 208 118 Output Total 750 650 Balance -542 -650 118 Weight 111 kg Intake: Oral 208 118 Output: Urine 750 650 Other: Voiding Method External Catheter External Catheter External Catheter - Exam GENERAL DESCRIPTION elderly female lying in bed, no distress. No tachypnea or accessory muscle of respiration use. LUNGS: Unlabored breathing. Clear to auscultation anteriorly. No wheeze or crackle. HEART: S1, S2, regular rate and rhythm. No loud murmur ABDOMEN: Soft, no tenderness , guarding or rigidity, no organomegaly EXTREMITIES: No edema of feet. - Labs CBC & Chem 7: 12/16/21 08:51 12/16/21 08:51 Labs: Abnormal Lab Results - Last 24 Hours (Table) 12/16/21 12/16/21 Range/Units 08:51 08:51 WBC 13.9 H (3.8-10.6) k/uL Neutrophils # 12.1 H (1.3-7.7) k/uL Lymphocytes # 0.8 L (1.0-4.8) k/uL Sodium 136 L (137-145) mmol/L Potassium 3.0 L (3.5-5.1) mmol/L Chloride 108 H (98-107) mmol/L Carbon Dioxide 19 L (22-30) mmol/L Glucose 164 H (74-99) mg/dL AST 53 H (14-36) U/L Total Protein 5.6 L (6.3-8.2) g/dL Albumin 2.9 L (3.5-5.0) g/dL Microbiology - Last 24 Hours (Table) 12/13/21 19:30 Blood Culture - Preliminary Blood No Growth after 48 hours 12/13/21 19:45 Blood Culture - Preliminary Blood No Growth after 48 hours 12/13/21 19:14 Urine Culture - Preliminary Urine,Voided Gram Neg Bacilli Assessment and Plan (1) Altered mental status Current Visit: Yes Status: Acute Code(s): R41.82 - ALTERED MENTAL STATUS, UNSPECIFIED SNOMED Code(s): 817054663 (2) UTI (urinary tract infection) Current Visit: Yes Status: Acute Code(s): N39.0 - URINARY TRACT INFECTION, SITE NOT SPECIFIED SNOMED Code(s): 51433396 Plan: 1patient with a fever positive UA concerning for a pyelonephritis urine culture currently showing gram-negative with ID sensitivities pending patient did have ultrasound of the abdominal bladder which was reported negative for acute abnormality patient to continue with the Rocephin with a new fever blood cultur es will be repeated as well as inflammatory markers and await for the LP check HSV serology discussed with the neurologist on the phone Time with Patient: Less than 30
--- NOTE | 2021-12-16 17:34 | P.PN ---
Subjective Progress Note Date: 12/16/21 Patient was seen for a follow-up. Patient's and daughter were present today. Patient appears slightly more worse. She is more aphasic. Patient has been sleeping a lot. However still having some significant speech difficulty. Patient denies headache. Patient's daughter states that she has been sleeping since they arrive to the hospital. Patient denies any pain. Telemetry monitoring showing sinus rhythm, with 4 beats run at 6:56 PM. She has PVCs, couplets. Some burst of SVT. Cardiology on board. Objective - Vital Signs Vital signs: Vital Signs Temp 101.7 F H 12/16/21 11:48 Pulse 68 12/16/21 11:48 Resp 18 12/16/21 11:48 BP 129/75 12/16/21 11:48 Pulse Ox 92 L 12/16/21 11:48 FiO2 Intake & Output 12/15/21 12/16/21 12/16/21 18:59 06:59 18:59 Intake Total 208 118 Output Total 750 650 Balance -542 -650 118 Weight 111 kg Intake: Oral 208 118 Output: Urine 750 650 Other: Voiding Method External Catheter External Catheter External Catheter - Exam Patient is very somnolent. She easily drifts back to sleep. Patient not able to name any object. She cannot repeat. She is more aphasic and encephalopath ic. Her face is symmetric and tongue protrudes the midline. Visual blackwood difficult to assess. Muscle strength is normal. Tone is equal. No obvious seizure-like activity. - Labs CBC & Chem 7: 12/16/21 08:51 12/16/21 08:51 Labs: Abnormal Lab Results - Last 24 Hours (Table) 12/16/21 12/16/21 Range/Units 08:51 08:51 WBC 13.9 H (3.8-10.6) k/uL Neutrophils # 12.1 H (1.3-7.7) k/uL Lymphocytes # 0.8 L (1.0-4.8) k/uL Sodium 136 L (137-145) mmol/L Potassium 3.0 L (3.5-5.1) mmol/L Chloride 108 H (98-107) mmol/L Carbon Dioxide 19 L (22-30) mmol/L Glucose 164 H (74-99) mg/dL AST 53 H (14-36) U/L Total Protein 5.6 L (6.3-8.2) g/dL Albumin 2.9 L (3.5-5.0) g/dL Microbiology - Last 24 Hours (Table) 12/13/21 19:30 Blood Culture - Preliminary Blood No Growth after 48 hours 12/13/21 19:45 Blood Culture - Preliminary Blood No Growth after 48 hours 12/13/21 19:14 Urine Culture - Preliminary Urine,Voided Gram Neg Bacilli Assessment and Plan Assessment: * Acute encephalopathy, with expressive aphasia, unclear etiology. No evidence of an acute stroke on MRI brain. Acute encephalopathy possible due to acute UTI versus hypertensive encephalopathy. Rule out herpes encephalitis. * Abnormal EEG * Hypertension, accelerated. * Hyperlipidemia * Elevated cardiac enzymes * Acute UTI with gram-negative bacilli * Obesity * Lymphedema Plan: * Patient appears clinically worse. She is more aphasic. Patient's acyclovir was discontinued yesterday. Patient's temperature at present is 101.7 axillary. Await lumbar puncture. Resume acyclovir. Discussed with ID. * MRI of the brain revealed multiple areas of increased signal on inversion shira very weighted sequences through the deep white matter including cerebellum and brainstem and subcortical changes, slightly greater on the right, are present. No acute ischemic stroke. I personally reviewed MRI of the brain, agree with the findings. * Carotid Doppler revealed less than 50% stenosis bilateral ICA. Antegrade flow in both vertebral arteries. * 2-D echo revealed normal left ventricular size and wall motion. Left atrial enlargement. Mild mitral regurgitation. * Patient apparently spiked a temperature to 103.1 F. Patient's white cells are elevated 11.0. Patient's mental status has got worse. Although infection could be related to acute UTI, but the cultures so far has been negative. Williamson virus PCR negative. * Repeat EEG performed today revealed background slowing of moderate to severe degree, suggestive of encephalopathy. Some triphasics waves suggestive of encephalopathy. Sporadic bilateral temporal independent sharp waves, suggestive underlying cortical irritability. * Empirically start Keppra. Patient will receive Keppra 1000 mg IV 1 dose, then 500 mg twice a day. * Urine has grown gram-negative bacilli. Patient on ceftriaxone 2 g every 24 hours. * Await B12, folate, TSH, and lipid panel. * A1c 5.7 * Plavix held because of negative MRI of the brain. Continue aspirin 81 mg. LP pending because receiving one dose of Plavix. To be performed on Tuesday.
[2021-12-16 17:47] LABS: Chol/HDL Ratio 3.14 Ratio; LDL Cholesterol,Calculated 99.7 mg/dL (0.0-131.0); VLDL Calculation 16.78 mg/dL (5.00-40.00)
[2021-12-16] MEDS ORDERED: levETIRAcetam IV 1,000 MG in SALINE 1 100ML.BAG IVPB STA (20:21)
[2021-12-16] MEDS: MELATONIN 1 MG TAB PO SCH (21:01)
--- NOTE | 2021-12-17 01:18 | EEG ---
ELECTROENCEPHALOGRAM REPORT PREAMBLE: This is a 81-year-old female with altered mental status. This study is performed to evaluate for any epileptiform activity. EEG FINDINGS: This is a 21-channel digital EEG recorded with video component, utilizing 10/20 International System with referential and bipolar montages. Background consists of disorganized, mixed frequencies of 6 to 7 Hz theta mixed with 2 to 3 Hz delta activity in bihemispheric region. Some triphasic-type bifrontal waves were also seen. Intermittent periods of suppression lasting for 1 to 2 seconds were also seen in generalized distribution. Sporadic bilateral temporal sharp-appearing waves were seen. No electrographic seizure was recorded. The patient was probably asleep in middle of the study as well. IMPRESSION: 1. This is an abnormal EEG due to background slowing of moderate to severe degree, suggestive of generalized cerebral dysfunction as can be seen with toxic/metabolic encephalopathy or related to diffuse structural brain abnormality. Clinical correlation recommended. 2. Presence of some frontal predominant triphasic-appearing waves suggestive of encephalopathy. 3. Sporadic bilateral temporal, independent sharp-appearing waves were seen, which may suggest underlying cortical irritability and tendency for seizures. Clinical correlation, and followup EEG recommended as clinically indicated. MMODL / IJN: [id number] / MTDD
[2021-12-17 04:08] LABS: Herpes simplex I and/or II IgM 0.61 INDEX (<=0.90); Herpes simplex IgG I Ab 0.59 (< or = 0.90); Herpes simplex IgG II Ab 0.22 (< or = 0.90)
[2021-12-17] MEDS: PANTOPRAZOLE 40 MG TABLET PO SCH (06:51)
[2021-12-17] MEDS: ATORVASTATIN 40 MG TAB PO SCH (09:01)
[2021-12-17] MEDS: ASPIRIN 81 MG PO SCH (09:01)
[2021-12-17] MEDS: LETROZOLE 2.5 MG TAB PO SCH (09:01)
[2021-12-17] MEDS: hydrALAZINE HCL 25 MG TAB PO SCH ×3 (09:01→21:34)
[2021-12-17] MEDS: amLODIPine 10 MG TAB PO SCH (09:01)
[2021-12-17] MEDS: METOPROLOL TARTRATE 25 MG TAB PO SCH ×2 (09:07→21:34)
[2021-12-17] MEDS: LOSARTAN 50 MG TAB PO SCH (09:07)
[2021-12-17 09:16] LABS: Basophils % (A) 0 %; Eosinophils # (A) 0.2 k/uL (0-0.7); Eosinophils % (A) 1 %; HCT 37.7 % (34.0-46.0); Lymphocytes # (A) 1.1 k/uL (1.0-4.8); Lymphocytes % (A) 8 %; MCH 28.5 pg (25.0-35.0); MCHC 31.8 g/dL (31.0-37.0); MCV 89.7 fL (80.0-100.0); Mean Platelet Volume 8.5; Monocytes # (A) 1.2 k/uL (0-1.0); Monocytes % (A) 9 %; Neutrophils # (A) 10.4 k/uL (1.3-7.7); Neutrophils % (A) 79 %; Platelet Count 260 k/uL (150-450); RDW 14.1 % (11.5-15.5); WBC 13.2 k/uL (3.8-10.6)
[2021-12-17 09:27] LABS: African American GFR (CKD) >90 (>60 ml/min/1.73 sqM); Anion Gap 7 mmol/L; Blood Urea Nitrogen 11 mg/dL (7-17); Calcium 9.3 mg/dL (8.4-10.2); Carbon Dioxide 22 mmol/L (22-30); Chloride 107 mmol/L (98-107); Glucose 102 mg/dL (74-99); Non-African American GFR(CKD) >90 (>60 ml/min/1.73 sqM); Potassium 3.7 mmol/L (3.5-5.1); Sodium 136 mmol/L (137-145)
[2021-12-17] MEDS: levETIRAcetam IV 500 MG in SODIUM CHLORIDE 0.9% 100 ML IVPB SCH ×2 (10:19→21:33)
--- NOTE | 2021-12-17 13:01 | P.PN ---
Subjective Progress Note Date: 12/17/21 Principal diagnosis: Fever Patient is a 81-year Old female presenting to the hospital few days ago for evaluation of expressive aphasia mental status changes initial work-up for CVA that was negative subsequent spike of fever and there was concern for urinary source. On today's evaluation that is 12/17/2021 The patient is afebrile, the patient is more awake and alert today the patient is feeling better he denies having any headache no chest pain or shortness of the cough no abdominal pain and no diarrhea has been reported by the nursing staff Objective - Vital Signs Vital signs: Vital Signs Temp 98.2 F 12/17/21 12:25 Pulse 75 12/17/21 12:25 Resp 18 12/17/21 12:25 BP 117/73 12/17/21 12:25 Pulse Ox 95 12/17/21 12:25 FiO2 Intake & Output 12/16/21 12/17/21 12/17/21 18:59 06:59 18:59 Intake Total 733 10 Output Total 1150 Balance 733 -1140 Intake: IV 10 Invasive Line 3 10 Intake, IV Titration 375 Amount Sodium Chloride 0.9% 1, 375 000 ml @ 125 mls/hr IV . Q8H [facility] Rx#:[id number] Oral 358 Output: Urine 1150 Other: Voiding Method External Catheter External Catheter External Catheter - Exam GENERAL DESCRIPTION elderly female lying in bed, no distress. No tachypnea or accessory muscle of respiration use. LUNGS: Unlabored breathing. Clear to auscultation anteriorly. No wheeze or crackle. HEART: S1, S2, regular rate and rhythm. No loud murmur ABDOMEN: Soft, no tenderness , guarding or rigidity, no organomegaly EXTREMITIES: No edema of feet. - Labs CBC & Chem 7: 12/17/21 08:40 12/17/21 08:40 Labs: Abnormal Lab Results - Last 24 Hours (Table) 12/16/21 12/17/21 12/17/21 Range/Units 16:13 08:40 08:40 WBC 13.2 H (3.8-10.6) k/uL Neutrophils # 10.4 H (1.3-7.7) k/uL Monocytes # 1.2 H (0-1.0) k/uL Sodium 136 L (137-145) mmol/L Glucose 102 H (74-99) mg/dL C-Reactive Protein 15.6 H (<1.0) mg/dL Microbiology - Last 24 Hours (Table) 12/13/21 19:30 Blood Culture - Preliminary Blood No Growth after 72 hours 12/13/21 19:45 Blood Culture - Preliminary Blood No Growth after 72 hours 12/13/21 19:14 Urine Culture - Final Urine,Voided Proteus mirabilis Assessment and Plan (1) Altered mental status Current Visit: Yes Status: Acute Code(s): R41.82 - ALTERED MENTAL STATUS, UNSPECIFIED SNOMED Code(s): 948370275 (2) UTI (urinary tract infection) Current Visit: Yes Status: Acute Code(s): N39.0 - URINARY TRACT INFECTION, SITE NOT SPECIFIED SNOMED Code(s): 59955620 Plan: 1patient with a fever positive UA concerning for a pyelonephritis The patient urine has been finalized with the Proteus Mirabelas which is a sensitive pathogen and is covered with Rocephin which will be continued ultrasound was negative for any structure abnormality and will monitor clinical course closely, the patient did have negative HSV serology that would make HSV encephalitis less likely Time with Patient: Less than 30
--- NOTE | 2021-12-17 13:04 | P.PN ---
Subjective Progress Note Date: 12/17/21 Principal diagnosis: Sepsis This morning patient was still delirious however mental status is better compared to yesterday. She was AAO 3 however slow to answer questions. She did not know why she was in the hospital. She said that it is because she made a mistake Objective - Vital Signs Vital signs: Vital Signs Temp 98.2 F 12/17/21 12:25 Pulse 75 12/17/21 12:25 Resp 18 12/17/21 12:25 BP 117/73 12/17/21 12:25 Pulse Ox 95 12/17/21 12:25 FiO2 Intake & Output 12/16/21 12/17/21 12/17/21 18:59 06:59 18:59 Intake Total 733 10 Output Total 1150 Balance 733 -1140 Intake: IV 10 Invasive Line 3 10 Intake, IV Titration 375 Amount Sodium Chloride 0.9% 1, 375 000 ml @ 125 mls/hr IV . Q8H [facility] Rx#:[id number] Oral 358 Output: Urine 1150 Other: Voiding Method External Catheter External Catheter External Catheter - Exam General examination - Alert and Oriented 3 in NAD, appears chronically debilitated Heart - + S1S2 no murmurs Lungs - Clear to auscultation Abdomen soft NT ND +ve BS, morbidly obese Extremities -edema in bilateral lower extremity [employer] - Moving all 4 extremities 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, 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 Psych -delirious - Labs CBC & Chem 7: 12/17/21 08:40 12/17/21 08:40 Labs: Abnormal Lab Results - Last 24 Hours (Table) 12/16/21 12/17/21 12/17/21 Range/Units 16:13 08:40 08:40 WBC 13.2 H (3.8-10.6) k/uL Neutrophils # 10.4 H (1.3-7.7) k/uL Monocytes # 1.2 H (0-1.0) k/uL Sodium 136 L (137-145) mmol/L Glucose 102 H (74-99) mg/dL C-Reactive Protein 15.6 H (<1.0) mg/dL Microbiology - Last 24 Hours (Table) 12/13/21 19:30 Blood Culture - Preliminary Blood No Growth after 72 hours 12/13/21 19:45 Blood Culture - Preliminary Blood No Growth after 72 hours 12/13/21 19:14 Urine Culture - Final Urine,Voided Proteus mirabilis Assessment and Plan Assessment: Sepsis Likely due to UTI Neurology order for lumbar puncture Awaiting for anesthesiology to do a lumbar puncture. This is scheduled for tomorrow Holding Plavix and subcu heparin for lumbar puncture I agree with infectious disease that likely sources UTI since patient does not have any photophobia or neck rigidity Patient on IV Rocephin. Infectious disease recommended to discontinue IV acyclovir Follow up on blood culture negative to date Urine culture finalized and grew Proteus mirabilis that is sensitive to cephalosporins Ultrasound was limited but negative for pyelonephritis Patient's fevers have resolved WBC is stable this morning Acute toxic encephalopathy MRI negative for acute stroke EEG consistent with toxic metabolic encephalopathy Carotid Doppler negative for high-grade stenosis Echocardiogram is unremarkable Neurology on board Oxybutynin discontinued as it could be contributed to her confusion Clinically patient is delirious consistent with toxic encephalopathy Hypertension urgency Continue current BP meds regimen Blood pressure better controlled this morning Type II NV secondary to sepsis Cardiology signed off Echocardiogram unremarkable DVT prophylaxis: Holding anticoagulation for lumbar puncture
--- NOTE | 2021-12-17 14:11 | P.PN ---
Subjective Progress Note Date: 12/17/21 Patient was seen for a follow-up. Patient's daughter was present today. Patient has much more improved. Patient much more alert and awake. Still somewhat groggy. Patient denies headache. Patient able to answer questions as per examination below. Telemetry monitoring showing sinus rhythm, with 4 beats run at 6:56 PM. She has PVCs, couplets. Some burst of SVT. Cardiology on board. Objective - Vital Signs Vital signs: Vital Signs Temp 98.2 F 12/17/21 12:25 Pulse 75 12/17/21 12:25 Resp 18 12/17/21 12:25 BP 117/73 12/17/21 12:25 Pulse Ox 95 12/17/21 12:25 FiO2 Intake & Output 12/16/21 12/17/21 12/17/21 18:59 06:59 18:59 Intake Total 733 10 Output Total 1150 Balance 733 -1140 Intake: IV 10 Invasive Line 3 10 Intake, IV Titration 375 Amount Sodium Chloride 0.9% 1, 375 000 ml @ 125 mls/hr IV . Q8H [facility] Rx#:[id number] Oral 358 Output: Urine 1150 Other: Voiding Method External Catheter External Catheter External Catheter - Exam Patient is more alert and awake. Speech is slightly more fluent. Patient able to name objects like knuckles, ear, but not the button. She is speaking more sentences. Her face is symmetric and tongue protrudes the midline. Visual blackwood difficult to assess. Muscle strength is normal. Tone is equal. No obvious seizure-like activity. - Labs CBC & Chem 7: 12/17/21 08:40 12/17/21 08:40 Labs: Abnormal Lab Results - Last 24 Hours (Table) 12/16/21 12/17/21 12/17/21 Range/Units 16:13 08:40 08:40 WBC 13.2 H (3.8-10.6) k/uL Neutrophils # 10.4 H (1.3-7.7) k/uL Monocytes # 1.2 H (0-1.0) k/uL Sodium 136 L (137-145) mmol/L Glucose 102 H (74-99) mg/dL C-Reactive Protein 15.6 H (<1.0) mg/dL Microbiology - Last 24 Hours (Table) 12/13/21 19:30 Blood Culture - Preliminary Blood No Growth after 72 hours 12/13/21 19:45 Blood Culture - Preliminary Blood No Growth after 72 hours 12/13/21 19:14 Urine Culture - Final Urine,Voided Proteus mirabilis Assessment and Plan Assessment: * Acute encephalopathy, with expressive aphasia, unclear etiology. No evidence of an acute stroke on MRI brain. Acute encephalopathy possible due to acute UTI versus hypertensive encephalopathy. Rule out herpes encephalitis. * Abnormal EEG * Hypertension, accelerated. Now improved. * Hyperlipidemia * Elevated cardiac enzymes * Acute UTI with Proteus mirabilis. * Obesity * Lymphedema Plan: * Patient has significantly improved today. She is able to express herself better. Patient's HSV-1 and 2 IgG and IgM antibodies negative. HSV-2 IgG antibody also negative. Acyclovir discontinued by ID. Urine has grown Pr oteus mirabilis. Patient on ceftriaxone 2 g every 24 hours. * MRI of the brain revealed multiple areas of increased signal on inversion recovery weighted sequences through the deep white matter including cerebellum and brainstem and subcortical changes, slightly greater on the right, are present. No acute ischemic stroke. I personally reviewed MRI of the brain, agree with the findings. * Carotid Doppler revealed less than 50% stenosis bilateral ICA. Antegrade flow in both vertebral arteries. * 2-D echo revealed normal left ventricular size and wall motion. Left atrial enlargement. Mild mitral regurgitation. * Repeat EEG 12/16/2021 revealed background slowing of moderate to severe degre e, suggestive of encephalopathy. Some triphasics waves suggestive of encephalopathy. Sporadic bilateral temporal independent sharp waves, suggestive underlying cortical irritability. * Empirically start Keppra. Patient will receive Keppra 1000 mg IV 1 dose, then 500 mg twice a day. * B12 608, folate, TSH * Lipid panel cholesterol 171, LDL 99, HDL 54 and triglycerides 83. * A1c 5.7 * Continue aspirin 81 mg. LP pending because receiving one dose of Plavix. To be performed on Tuesday.
[2021-12-18] MEDS: MELATONIN 1 MG TAB PO SCH ×2 (00:47→21:50)
[2021-12-18] MEDS ORDERED: DEXTROSE 50% SYRINGE 50 ML IVP ONE (06:20)
[2021-12-18] MEDS: PANTOPRAZOLE 40 MG TABLET PO SCH (06:28)
[2021-12-18] MEDS ORDERED: LACTATED RINGERS 1,000 ML IV ONE ×2 (08:23)
--- NOTE | 2021-12-18 09:06 | P.PCN ---
Date of Procedure: 12/18/21 Procedure(s) Performed: Preoperative diagnosis: Acute encephalopathy Post operative diagnoses: Acute encephalopathy Procedure= lumbar puncture Anesthesia= local infiltration with lidocaine 1% 3 mL only . Condition: stable Complication: none. Description of the procedure procedure risk and benefits discussed with the patient and family, consent signed. Patient and the procedure area placed in sitting position, back prepped with chlorhexidine 3 times been local infiltration of the skin and subcutaneous tissue with lidocaine 1% 3 mL for skin and subcu interstitial frustrations at L4 5 levels then 22-gauge Quincke-type needle advanced slowly at L4- 5 interlaminar space there was positive cerebrospinal fluid which was clear, no heme, no paresthesia ,total of 9 ML of clear cerebrospinal fluid collected in 4 different tubes 2-2-1/2 mL in each, then the needle removed and a Band-Aid applied and patient tolerated the procedure well without any complications.
[2021-12-18 09:29] LABS: Basophils % (A) 0 %; Eosinophils # (A) 0.4 k/uL (0-0.7); Eosinophils % (A) 4 %; HCT 41.6 % (34.0-46.0); Hypochromasia Slight; Lymphocytes # (A) 1.2 k/uL (1.0-4.8); Lymphocytes % (A) 12 %; MCHC 31.2 g/dL (31.0-37.0); Mean Platelet Volume 8.1; Monocytes % (A) 10 %; Neutrophils # (A) 7.3 k/uL (1.3-7.7); Neutrophils % (A) 71 %; Platelet Count 289 k/uL (150-450); RBC 4.48 m/uL (3.80-5.40); WBC 10.2 k/uL (3.8-10.6)
[2021-12-18 09:41] LABS: African American GFR (CKD) >90 (>60 ml/min/1.73 sqM); Anion Gap 12 mmol/L; Blood Urea Nitrogen 12 mg/dL (7-17); Calcium 9.7 mg/dL (8.4-10.2); Carbon Dioxide 18 mmol/L (22-30); Chloride 109 mmol/L (98-107); Glucose 116 mg/dL (74-99); Non-African American GFR(CKD) 89 (>60 ml/min/1.73 sqM); Potassium 3.9 mmol/L (3.5-5.1); Sodium 139 mmol/L (137-145)
[2021-12-18] MEDS: hydrALAZINE HCL 25 MG TAB PO SCH ×3 (09:41→21:50)
[2021-12-18] MEDS: ATORVASTATIN 40 MG TAB PO SCH (09:41)
[2021-12-18] MEDS: LOSARTAN 50 MG TAB PO SCH (09:41)
[2021-12-18] MEDS: amLODIPine 10 MG TAB PO SCH (09:41)
[2021-12-18] MEDS: ASPIRIN 81 MG PO SCH (09:41)
[2021-12-18] MEDS: METOPROLOL TARTRATE 25 MG TAB PO SCH ×2 (09:41→21:50)
[2021-12-18] MEDS: LETROZOLE 2.5 MG TAB PO SCH (09:42)
[2021-12-18] MEDS: levETIRAcetam IV 500 MG in SODIUM CHLORIDE 0.9% 100 ML IVPB SCH ×2 (12:25→21:50)
[2021-12-18 12:41] VITALS: BMI 46.2
--- NOTE | 2021-12-18 14:44 | P.PN ---
Subjective Progress Note Date: 12/18/21 Patient this morning was much more awake and alert and also answering questions. She is still mildly confused. Patient's son was at bedside. She noticed really thought that the son was her brother. But then she was able to correct herself and also tell me the name of her son as well as the names of her other 4 kids. Patient is still not able to tell me why she is in the hospital. She is otherwise AAO 3. Objective - Vital Signs Vital signs: Vital Signs Temp 98.5 F 12/18/21 12:00 Pulse 68 12/18/21 12:00 Resp 18 12/18/21 12:00 BP 104/64 12/18/21 12:00 Pulse Ox 97 12/18/21 12:00 FiO2 Intake & Output 12/17/21 12/18/21 12/18/21 18:59 06:59 18:59 Intake Total 100 485 230 Output Total 500 700 Balance 100 -15 -470 Weight 111 kg Intake: IV 50 Intake, IV Titration 100 Amount levETIRAcetam IV 500 mg 100 In Sodium Chloride 0.9% 100 ml @ 400 mls/hr IVPB Q12HR [facility] Rx#:[id number] Oral 485 180 Output: Urine 500 700 Other: Voiding Method External Catheter External Catheter External Catheter # Bowel Movements 1 - Exam General examination - Alert and Oriented 3 in NAD, appears chronically debilitated Heart - + S1S2 no murmurs Lungs - Clear to auscultation Abdomen soft NT ND +ve BS, morbidly obese Extremities -edema in bilateral lower extremity, bilateral looks in the cellulitis is improving 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, 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 Psych -mildly confused - Labs CBC & Chem 7: 12/18/21 09:10 12/18/21 09:10 Labs: Abnormal Lab Results - Last 24 Hours (Table) 12/18/21 Range/Units 09:10 Chloride 109 H (98-107) mmol/L Carbon Dioxide 18 L (22-30) mmol/L Glucose 116 H (74-99) mg/dL Microbiology - Last 24 Hours (Table) 12/13/21 19:30 Blood Culture - Preliminary Blood No Growth after 96 hours 12/13/21 19:45 Blood Culture - Preliminary Blood No Growth after 96 hours 12/16/21 16:13 Blood Culture - Preliminary Blood No Growth after 24 hours Assessment and Plan Assessment: Sepsis Likely due to UTI Holding Plavix and subcu heparin for lumbar puncture -> will resume tomorrow Patient had lumbar puncture done on 12/18/2021: Follow-up on fluid analysis and cultures I agree with infectious disease that likely sources UTI since patient does not have any photophobia or neck rigidity Patient on IV Rocephin. Infectious disease recommended to discontinue IV acyclovir Follow up on blood culture negative to date Urine culture finalized and grew Proteus mirabilis that is sensitive to cephalosporins Ultrasound was limited but negative for pyelonephritis Patient's fevers have resolved WBC has normalized Acute toxic encephalopathy MRI negative for acute stroke EEG consistent with toxic metabolic encephalopathy Carotid Doppler negative for high-grade stenosis Echocardiogram is unremarkable Neurology on board Oxybutynin discontinued as it could be contributed to her confusion Patient's mental status is gradually improving Hypertension urgency Continue current BP meds regimen Blood pressure better controlled this morning Type II PA secondary to sepsis Cardiology signed off Echocardiogram unremarkable DVT prophylaxis: Holding anticoagulation for lumbar puncture
[2021-12-18 15:19] LABS: Appearance,CSF Clear; CSF Tube Number 4; CSF Tube Volume 4; Nucleated Cells, CSF 2 u/L (0-5); Red Blood Cell,CSF 11 u/L (0-10)
[2021-12-18 15:22] LABS: Red Blood Cell, CSF Crenated 0 %; Red Blood Cell, CSF Fresh 100 %
--- NOTE | 2021-12-18 15:35 | P.PN ---
Subjective Progress Note Date: 12/18/21 Principal diagnosis: Fever Patient is a 81-year Old female presenting to the hospital few days ago for evaluation of expressive aphasia mental status changes initial work-up for CVA that was negative subsequent spike of fever and there was concern for urinary source. On today's evaluation that is 12/18/2021 The patient remains to be afebrile, the patient is more awake and alert today the patient is feeling better, the patient is breathing comfortably on room air denies any chest pain shortness of breath or cough no abdominal pain no diarrhea Objective - Vital Signs Vital signs: Vital Signs Temp 99.1 F 12/18/21 08:17 Pulse 72 12/18/21 08:17 Resp 20 12/18/21 08:17 BP 166/81 12/18/21 08:17 Pulse Ox 95 12/18/21 08:17 FiO2 Intake & Output 12/17/21 12/18/21 12/18/21 18:59 06:59 18:59 Intake Total 100 485 230 Output Total 500 Balance 100 -15 230 Intake: IV 50 Intake, IV Titration 100 Amount levETIRAcetam IV 500 mg 100 In Sodium Chloride 0.9% 100 ml @ 400 mls/hr IVPB Q12HR [facility] Rx#:[id number] Oral 485 180 Output: Urine 500 Other: Voiding Method External Catheter External Catheter # Bowel Movements 1 - Exam GENERAL DESCRIPTION elderly female lying in bed, no distress. No tachypnea or accessory muscle of respiration use. LUNGS: Unlabored breathing. Clear to auscultation anteriorly. No wheeze or crackle. HEART: S1, S2, regular rate and rhythm. No loud murmur ABDOMEN: Soft, no tenderness , guarding or rigidity, no organomegaly EXTREMITIES: No edema of feet. - Labs CBC & Chem 7: 12/18/21 09:10 12/18/21 09:10 Labs: Abnormal Lab Results - Last 24 Hours (Table) 12/18/21 Range/Units 09:10 Chloride 109 H (98-107) mmol/L Carbon Dioxide 18 L (22-30) mmol/L Glucose 116 H (74-99) mg/dL Microbiology - Last 24 Hours (Table) 12/13/21 19:30 Blood Culture - Preliminary Blood No Growth after 96 hours 12/13/21 19:45 Blood Culture - Preliminary Blood No Growth after 96 hours 12/16/21 16:13 Blood Culture - Preliminary Blood No Growth after 24 hours Assessment and Plan (1) Altered mental status Current Visit: Yes Status: Acute Code(s): R41.82 - ALTERED MENTAL STATUS, UNSPECIFIED SNOMED Code(s): 316186716 (2) UTI (urinary tract infection) Current Visit: Yes Status: Acute Code(s): N39.0 - URINARY TRACT INFECTION, SITE NOT SPECIFIED SNOMED Code(s): 28290996 Plan: 1patient with a fever positive UA concerning for a pyelonephritis The patient urine has been finalized with the Proteus Mirabelas which is a sensitive pathogen 2-patient seemed to showing overall clinical improvement to continue with the Rocephin while inpatient finishing therapy with oral Ceftin Family the bedside questions were answered Time with Patient: Less than 30
[2021-12-18 17:56] LABS: Glucose,CSF 58 mg/dL (40-70); Total Protein,CSF 75 mg/dL (12-60)
[2021-12-19] MEDS: PANTOPRAZOLE 40 MG TABLET PO SCH (06:27)
[2021-12-19] MEDS: METOPROLOL TARTRATE 25 MG TAB PO SCH ×2 (08:30→20:19)
[2021-12-19] MEDS: hydrALAZINE HCL 25 MG TAB PO SCH ×3 (08:30→20:19)
[2021-12-19] MEDS: ATORVASTATIN 40 MG TAB PO SCH (08:30)
[2021-12-19] MEDS: levETIRAcetam IV 500 MG in SODIUM CHLORIDE 0.9% 100 ML IVPB SCH ×2 (08:30→20:18)
[2021-12-19] MEDS: ASPIRIN 81 MG PO SCH (08:30)
[2021-12-19] MEDS: LOSARTAN 50 MG TAB PO SCH (08:30)
[2021-12-19] MEDS: amLODIPine 10 MG TAB PO SCH (08:30)
[2021-12-19] MEDS: LETROZOLE 2.5 MG TAB PO SCH (08:31)
--- NOTE | 2021-12-19 12:57 | P.PN ---
Subjective Progress Note Date: 12/19/21 Patient is answering all questions quickly today. Her mental status appears to be gradually improving. Objective - Vital Signs Vital signs: Vital Signs Temp 98.2 F 12/19/21 03:30 Pulse 74 12/19/21 08:00 Resp 16 12/19/21 08:00 BP 167/80 12/19/21 08:00 Pulse Ox 97 12/19/21 08:00 FiO2 Intake & Output 12/18/21 12/19/21 12/19/21 18:59 06:59 18:59 Intake Total 610 240 Output Total 1300 800 Balance -690 -800 240 Weight 111 kg Intake: IV 50 Intake, IV Titration 200 Amount cefTRIAXone 2 gm In 100 Sodium Chloride 0.9% 50 ml @ 100 mls/hr IVPB Q24H [facility] Rx#:[id number] levETIRAcetam IV 500 mg 100 In Sodium Chloride 0.9% 100 ml @ 400 mls/hr IVPB Q12HR [facility] Rx#:[id number] Oral 360 240 Output: Urine 1300 800 Other: Voiding Method External Catheter External Catheter External Catheter - Exam General examination - Alert and Oriented 3 in NAD, appears chronically debilitated Heart - + S1S2 no murmurs Lungs - Clear to auscultation Abdomen soft NT ND +ve BS, morbidly obese Extremities -edema in bilateral lower extremity, bilateral looks in the cellulitis is improving [employer] - Moving all 4 extremities 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, 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 Psych -mildly confused - Labs CBC & Chem 7: 12/18/21 09:10 12/18/21 09:10 Labs: Abnormal Lab Results - Last 24 Hours (Table) 12/18/21 Range/Units 08:50 CSF RBC 11 H (0-10) u/L CSF Total Protein 75 H (12-60) mg/dL Microbiology - Last 24 Hours (Table) 12/18/21 08:50 CSF Gram Stain - Preliminary Cerebral Spinal Fluid CSF Culture - Preliminary 12/18/21 08:50 Anaerobic Culture - Preliminary Cerebral Spinal Fluid 12/13/21 19:30 Blood Culture - Preliminary Blood No Growth after 120 hours 12/13/21 19:45 Blood Culture - Preliminary Blood No Growth after 120 hours 12/16/21 16:13 Blood Culture - Preliminary Blood No Growth after 48 hours Assessment and Plan Assessment: Sepsis Likely due to UTI Patient had lumbar puncture done on 12/18/2021: Follow-up on fluid analysis and cultures I agree with infectious disease that likely sources UTI since patient does not have any photophobia or neck rigidity Patient on IV Rocephin. Infectious disease recommended to discontinue IV acyclovir Follow up on blood culture negative to date Urine culture finalized and grew Proteus mirabilis that is sensitive to cephalosporins Ultrasound was limited but negative for pyelonephritis Patient's fevers have resolved WBC has normalized Acute toxic encephalopathy MRI negative for acute stroke EEG consistent with toxic metabolic encephalopathy Carotid Doppler negative for high-grade stenosis Echocardiogram is unremarkable Neurology on board Oxybutynin discontinued as it could be contributed to her confusion Patient's mental status is gradually improving Hypertension urgency Continue current BP meds regimen Blood pressure better controlled this morning Type II CO secondary to sepsis Cardiology signed off Echocardiogram unremarkable DVT prophylaxis: Resume subcu heparin
--- NOTE | 2021-12-19 16:42 | P.PN ---
Subjective Progress Note Date: 12/19/21 Patient was seen for a follow-up. Patient is laying comfortably in the bed. Patient denies any headache or dizziness. Patient's speech has further improved. Patient much more alert and awake. Patient states that she gets headache "once in a while". At this time she has no headache. Telemetry monitoring showing sinus rhythm with sinus bradycardia and some PVCs. Objective - Vital Signs Vital signs: Vital Signs Temp 98.2 F 12/19/21 03:30 Pulse 74 12/19/21 08:00 Resp 16 12/19/21 08:00 BP 167/80 12/19/21 08:00 Pulse Ox 97 12/19/21 08:00 FiO2 Intake & Output 12/18/21 12/19/21 12/19/21 18:59 06:59 18:59 Intake Total 610 240 Output Total 1300 800 Balance -690 -800 240 Weight 111 kg Intake: IV 50 Intake, IV Titration 200 Amount cefTRIAXone 2 gm In 100 Sodium Chloride 0.9% 50 ml @ 100 mls/hr IVPB Q24H [facility] Rx#:[id number] levETIRAcetam IV 500 mg 100 In Sodium Chloride 0.9% 100 ml @ 400 mls/hr IVPB Q12HR [facility] Rx#:[id number] Oral 360 240 Output: Urine 1300 800 Other: Voiding Method External Catheter External Catheter External Catheter - Exam Patient is more alert and awake. Speech is more fluent as compared to yesterday. Patient able to name objects like knuckles, ear lobe, although she called it pinna (yesterday called it pinacle). She is speaking more sentences. Patient can repeat very well. Her face is symmetric and tongue protrudes the midline. Visual blackwood are full on confrontation with no neglect. Muscle strength is normal. Tone is equal. No obvious seizure-like activity. - Labs CBC & Chem 7: 12/18/21 09:10 12/18/21 09:10 Labs: Abnormal Lab Results - Last 24 Hours (Table) 12/18/21 Range/Units 08:50 CSF RBC 11 H (0-10) u/L CSF Total Protein 75 H (12-60) mg/dL Microbiology - Last 24 Hours (Table) 12/18/21 08:50 CSF Gram Stain - Preliminary Cerebral Spinal Fluid CSF Culture - Preliminary 12/18/21 08:50 Anaerobic Culture - Preliminary Cerebral Spinal Fluid 12/13/21 19:30 Blood Culture - Preliminary Blood No Growth after 120 hours 12/13/21 19:45 Blood Culture - Preliminary Blood No Growth after 120 hours 12/16/21 16:13 Blood Culture - Preliminary Blood No Growth after 48 hours Assessment and Plan Assessment: * Acute encephalopathy, with expressive aphasia, unclear etiology. No evidence of an acute stroke on MRI brain. Acute encephalopathy possible due to acute UTI versus hypertensive encephalopathy. Encephalitis meningitis ruled out with normal CSF. * Abnormal EEG * Hypertension, accelerated. Now improved. * Hyperlipidemia * Elevated cardiac enzymes * Acute UTI with Proteus mirabilis. * Obesity * Lymphedema Plan: * Patient has significantly improved today. She is able to express herself better. Patient's HSV-1 and 2 IgG and IgM antibodies negative. HSV-2 IgG antibody also negative. Acyclovir discontinued by ID. Urine has grown Proteus mirabilis. Patient on ceftriaxone 2 g every 24 hours. ID following. * CSF was normal with WBC 2, RBC 11, CSF colorless and clear. Glucose is 58, protein 75/60. Cultures negative. * MRI of the brain revealed multiple areas of increased signal on inversion recovery weighted sequences through the deep white matter including cerebellum and brainstem and subcortical changes, slightly greater on the right, are present. No acute ischemic stroke. I personally reviewed MRI of the brain, agree with the findings. * Carotid Doppler revealed less than 50% stenosis bilateral ICA. Antegrade flow in both vertebral arteries. * 2-D echo revealed normal left ventricular size and wall motion. Left atrial enlargement. Mild mitral regurgitation. * Repeat EEG 12/16/2021 revealed background slowing of moderate to severe degree, suggestive of encephalopathy. Some triphasics waves suggestive of encephalopathy. Sporadic bilateral temporal independent sharp waves, suggestive underlying cortical irritability. * Empirically start Keppra. Patient will receive Keppra 1000 mg IV 1 dose, then 500 mg twice a day. Patient's speech much improved. * B12 608, folate 15.0, TSH 4.25 normal. * Lipid panel cholesterol 171, LDL 99, HDL 54 and triglycerides 83. * A1c 5.7 * Continue aspirin 81 mg.
--- NOTE | 2021-12-19 16:50 | P.PN ---
Subjective Progress Note Date: 12/18/21 Patient was seen for a follow-up. Family members were not present today. Patient is laying comfortably in the bed. Patient denies any headache or dizziness. Patient's speech has further improved. Patient much more alert and awake. Patient states that she gets headache "once in a while". At this time she has no headache. Telemetry monitoring showing sinus rhythm with sinus bradycardia and some PVCs. Objective - Vital Signs Vital signs: Vital Signs Temp 98.5 F 12/18/21 12:00 Pulse 66 12/18/21 15:46 Resp 16 12/18/21 15:46 BP 152/75 12/18/21 15:46 Pulse Ox 97 12/18/21 15:46 FiO2 Intake & Output 12/18/21 12/18/21 12/19/21 06:59 18:59 06:59 Intake Total 485 610 Output Total 500 1300 Balance -15 690 Weight 111 kg Intake: IV 50 Intake, IV Titration 200 Amount cefTRIAXone 2 gm In 100 Sodium Chloride 0.9% 50 ml @ 100 mls/hr IVPB Q24H [facility] Rx#:[id number] levETIRAcetam IV 500 mg 100 In Sodium Chloride 0.9% 100 ml @ 400 mls/hr IVPB Q12HR [facility] Rx#:[id number] Oral 485 360 Output: Urine 500 1300 Other: Voiding Method External Catheter External Catheter # Bowel Movements 1 - Exam Patient is more alert and awake. Speech is more fluent as compared to yesterday. Patient able to name objects like knuckles, ear lobe, although she called it pinna (yesterday called it pinacle). She is speaking more sentences. Patient can repeat very well. Her face is symmetric and tongue protrudes the midline. Visual blackwood are full on confrontation with no neglect. Muscle strength is normal. Tone is equal. No obvious seizure-like activity. - Labs CBC & Chem 7: 12/18/21 09:10 12/18/21 09:10 Labs: Abnormal Lab Results - Last 24 Hours (Table) 12/18/21 12/18/21 Range/Units 08:50 09:10 Chloride 109 H (98-107) mmol/L Carbon Dioxide 18 L (22-30) mmol/L Glucose 116 H (74-99) mg/dL CSF RBC 11 H (0-10) u/L CSF Total Protein 75 H (12-60) mg/dL Microbiology - Last 24 Hours (Table) 12/16/21 16:13 Blood Culture - Preliminary Blood No Growth after 48 hours 12/18/21 08:50 CSF Gram Stain - Preliminary Cerebral Spinal Fluid CSF Culture - Preliminary 12/18/21 08:50 Anaerobic Culture - Preliminary Cerebral Spinal Fluid 12/13/21 19:30 Blood Culture - Preliminary Blood No Growth after 96 hours 12/13/21 19:45 Blood Culture - Preliminary Blood No Growth after 96 hours Assessment and Plan Assessment: * Acute encephalopathy, with expressive aphasia, unclear etiology. No evidence of an acute stroke on MRI brain. Acute encephalopathy possible due to acute UTI versus hypertensive encephalopathy. Encephalitis meningitis ruled out with normal CSF. * Abnormal EEG * Hypertension, accelerated. Now improved. * Hyperlipidemia * Elevated cardiac enzymes * Acute UTI with Proteus mirabilis. * Obesity * Lymphedema Plan: * Patient has significantly improved today. She is able to express herself better. Patient's HSV-1 and 2 IgG and IgM antibodies negative. HSV-2 IgG antibody also negative. Acyclovir discontinued by ID. Urine has grown Proteus mirabilis. Patient on ceftriaxone 2 g every 24 hours. ID following. * CSF was normal with WBC 2, RBC 11, CSF colorless and clear. Glucose is 58, protein 75/60. Cultures negative. * MRI of the brain revealed multiple areas of increased signal on inversion recovery weighted sequences through the deep white matter including cerebellum and brainstem and subcortical changes, slightly greater on the right, are present. No acute ischemic stroke. I personally reviewed MRI of the brain, agree with the findings. * Carotid Doppler revealed less than 50% stenosis bilateral ICA. Antegrade flow in both vertebral arteries. * 2-D echo revealed normal left ventricular size and wall motion. Left atrial enlargement. Mild mitral regurgitation. * Repeat EEG 12/16/2021 revealed background slowing of moderate to severe degree, suggestive of encephalopathy. Some triphasics waves suggestive of encephalopathy. Sporadic bilateral temporal independent sharp waves, suggestive underlying cortical irritability. * Empirically start Keppra. Patient will receive Keppra 1000 mg IV 1 dose, then 500 mg twice a day. Patient's speech much improved. * B12 608, folate 15.0, TSH 4.25 normal. * Lipid panel cholesterol 171, LDL 99, HDL 54 and triglycerides 83. * A1c 5.7 * Continue aspirin 81 mg.
[2021-12-19] MEDS: HEPARIN SODIUM,PORCINE/PF 5,000 UNIT/0.5 ML SYRINGE SQ SCH (20:19)
[2021-12-19] MEDS: MELATONIN 1 MG TAB PO SCH (20:19)
[2021-12-20] MEDS: PANTOPRAZOLE 40 MG TABLET PO SCH (05:30)
[2021-12-20] MEDS: ATORVASTATIN 40 MG TAB PO SCH (09:41)
[2021-12-20] MEDS: METOPROLOL TARTRATE 25 MG TAB PO SCH ×2 (09:41→20:50)
[2021-12-20] MEDS: hydrALAZINE HCL 50 MG TAB PO SCH ×3 (09:41→20:50)
[2021-12-20] MEDS: amLODIPine 10 MG TAB PO SCH (09:41)
[2021-12-20] MEDS: ASPIRIN 81 MG PO SCH (09:41)
[2021-12-20] MEDS: LOSARTAN 50 MG TAB PO SCH (09:41)
[2021-12-20] MEDS: levETIRAcetam IV 500 MG in SODIUM CHLORIDE 0.9% 100 ML IVPB SCH ×2 (09:41→20:49)
[2021-12-20] MEDS: HEPARIN SODIUM,PORCINE/PF 5,000 UNIT/0.5 ML SYRINGE SQ SCH ×2 (09:42→20:49)
[2021-12-20] MEDS: LETROZOLE 2.5 MG TAB PO SCH (09:42)
--- NOTE | 2021-12-20 10:45 | P.PN ---
Subjective Progress Note Date: 12/20/21 Principal diagnosis: Sepsis Patient denies any acute complaints this morning. She is only mildly confused. Her mentation has been improving since admission gradually. Objective - Vital Signs Vital signs: Vital Signs Temp 98.4 F 12/20/21 03:40 Pulse 62 12/20/21 03:40 Resp 16 12/20/21 03:40 BP 161/79 12/20/21 03:40 Pulse Ox 95 12/20/21 03:40 FiO2 Intake & Output 12/19/21 12/20/21 12/20/21 18:59 06:59 18:59 Intake Total 340 350 118 Output Total 600 600 650 Balance -260 -998 -532 Intake: Intake, IV Titration 100 150 Amount Lactated Ringers 1,000 ml 0 @ 0 mls/hr IV [facility] Rx#:[id number] cefTRIAXone 2 gm In 100 50 Sodium Chloride 0.9% 50 ml @ 100 mls/hr IVPB Q24H [facility] Rx#:[id number] levETIRAcetam IV 500 mg 100 In Sodium Chloride 0.9% 100 ml @ 400 mls/hr IVPB Q12HR [facility] Rx#:[id number] Oral 240 200 118 Output: Urine 600 600 650 Other: Voiding Method External Catheter External Catheter # Bowel Movements 1 - Exam General examination - Alert and Oriented 3 in NAD, appears chronically debilitated Heart - + S1S2 no murmurs Lungs - Clear to auscultation Abdomen soft NT ND +ve BS, morbidly obese Extremities -edema in bilateral lower extremity, bilateral looks in the cell ulitis is improving [employer] - Moving all 4 extremities 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, 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 Psych -mildly confused - Labs CBC & Chem 7: 12/18/21 09:10 12/18/21 09:10 Labs: Microbiology - Last 24 Hours (Table) 12/18/21 08:50 CSF Gram Stain - Preliminary Cerebral Spinal Fluid CSF Culture - Preliminary 12/13/21 19:30 Blood Culture - Final Blood No Growth after 144 hours 12/13/21 19:45 Blood Culture - Final Blood No Growth after 144 hours 12/16/21 16:13 Blood Culture - Preliminary Blood No Growth after 72 hours Assessment and Plan Assessment: Sepsis Likely due to UTI Patient had lumbar puncture done on 12/18/2021: Fluid analysis and cultures negative so doubt sepsis due to meningitis Patient on IV Rocephin. HSV negative so we'll discontinue acyclovir Follow up on blood culture negative to date Urine culture finalized and grew Proteus mirabilis that is sensitive to cephalosporins Ultrasound was limited but negative for pyelonephritis Patient's fevers have resolved WBC has normalized Acute toxic encephalopathy MRI negative for acute stroke EEG consistent with toxic metabolic encephalopathy Carotid Doppler negative for high-grade stenosis Echocardiogram is unremarkable Neurology on board Oxybutynin discontinued as it could be contributed to her confusion Patient's mental status is gradually improving Hypertension urgency Continue current BP meds regimen We'll increase hydralazine to 50 mg 3 times a day Type II DC secondary to sepsis Cardiology signed off Echocardiogram unremarkable DVT prophylaxis: Resume subcu heparin Patient is medically stable for discharge to senior living facility
[2021-12-20] MEDS: MELATONIN 1 MG TAB PO SCH (20:50)
--- NOTE | 2021-12-20 20:50 | P.PN ---
Subjective Progress Note Date: 12/20/21 This is a telemedicine neurology follow-up performed today on 12/20/2021. Patient was seen for a follow-up. Patient's brother was present today. He states that patient's speech is back to normal. Patient is laying comfortably in the bed. Patient denies any headache or dizziness. Patient's speech has further improved, states her speech occasionally gets "goofy", but is almost back to normal for her. Patient much more alert and awake. Patient states that she gets headache "once in a while". At this time she has no headache. Objective - Vital Signs Vital signs: Vital Signs Temp 98.4 F 12/20/21 03:40 Pulse 62 12/20/21 03:40 Resp 16 12/20/21 03:40 BP 161/79 12/20/21 03:40 Pulse Ox 95 12/20/21 03:40 FiO2 Intake & Output 12/19/21 12/20/21 12/20/21 18:59 06:59 18:59 Intake Total 340 350 118 Output Total 600 600 650 Balance -260 250 -532 Intake: Intake, IV Titration 100 150 Amount Lactated Ringers 1,000 ml 0 @ 0 mls/hr IV [facility] Rx#:[id number] cefTRIAXone 2 gm In 100 50 Sodium Chloride 0.9% 50 ml @ 100 mls/hr IVPB Q24H [facility] Rx#:[id number] levETIRAcetam IV 500 mg 100 In Sodium Chloride 0.9% 100 ml @ 400 mls/hr IVPB Q12HR [facility] Rx#:[id number] Oral 240 200 118 Output: Urine 600 600 650 Other: Voiding Method External Catheter External Catheter # Bowel Movements 1 - Exam Patient is more alert and awake. Speech is more fluent as compared to yesterday. She is speaking . This is, with no paraphasic errors. Patient can repeat very well. Her face is symmetric and tongue protrudes the midline. Visual blackwood are full on confrontation with no neglect. Muscle strength is normal. Tone is equal. No obvious seizure-like activity. - Labs CBC & Chem 7: 12/18/21 09:10 12/18/21 09:10 Labs: Microbiology - Last 24 Hours (Table) 12/18/21 08:50 CSF Gram Stain - Preliminary Cerebral Spinal Fluid CSF Culture - Preliminary 12/13/21 19:30 Blood Culture - Final Blood No Growth after 144 hours 12/13/21 19:45 Blood Culture - Final Blood No Growth after 144 hours 12/16/21 16:13 Blood Culture - Preliminary Blood No Growth after 72 hours Assessment and Plan Assessment: * Acute encephalopathy, with expressive aphasia, unclear etiology. No evidence of an acute stroke on MRI brain. Acute encephalopathy possible due to acute UTI versus hypertensive encephalopathy. Encephalitis meningitis ruled out with normal CSF. * Abnormal EEG * Hypertension, accelerated. Now improved. * Hyperlipidemia * Elevated cardiac enzymes * Acute UTI with Proteus mirabilis. * Obesity * Lymphedema Plan: * Patient has significantly improved today. Her speech is back to baseline. Patient's HSV-1 and 2 IgG and IgM antibodies negative. HSV-2 IgG antibody als o negative. Acyclovir discontinued by ID. Urine has grown Proteus mirabilis. Patient on ceftriaxone 2 g every 24 hours. ID following. * CSF was normal with WBC 2, RBC 11, CSF colorless and clear. Glucose is 58, protein 75/60. Cultures negative. * MRI of the brain revealed multiple areas of increased signal on inversion recovery weighted sequences through the deep white matter including cerebellum and brainstem and subcortical changes, slightly greater on the right, are present. No acute ischemic stroke. I personally reviewed MRI of the brain, agree with the findings. * Carotid Doppler revealed less than 50% stenosis bilateral ICA. Antegrade flow in both vertebral arteries. * 2-D echo revealed normal left ventricular size and wall motion. Left atrial enlargement. Mild mitral regurgitation. * Repeat EEG 12/16/2021 revealed background slowing of moderate to severe degree, suggestive of encephalopathy. Some triphasics waves suggestive of encephalopathy. Sporadic bilateral temporal independent sharp waves, suggestive underlying cortical irritability. * Continue Keppra at the current dose 500 mg twice a day. Recommend patient follow up with neurologist in 2-4 weeks after discharge. Patient may need repeat EEG as an outpatient. If negative, can be weaned off Keppra in 4-6 weeks. * B12 608, folate 15.0, TSH 4.25 normal. * Lipid panel cholesterol 171, LDL 99, HDL 54 and triglycerides 83. * A1c 5.7 * Continue aspirin 81 mg. * Neurologically clear. Please call neurology if any concerns. Dr. Jordy Hoang starting neurology service from the morning.
[2021-12-20 22:25] LABS: HSV I IgG Interp NEGATIVE (NEGATIVE); HSV II IgG Interp NEGATIVE (NEGATIVE)
[2021-12-21] MEDS: PANTOPRAZOLE 40 MG TABLET PO SCH (06:14)
[2021-12-21] MEDS: HEPARIN SODIUM,PORCINE/PF 5,000 UNIT/0.5 ML SYRINGE SQ SCH ×2 (08:37→22:25)
[2021-12-21] MEDS: LOSARTAN 50 MG TAB PO SCH (08:37)
[2021-12-21] MEDS: levETIRAcetam IV 500 MG in SODIUM CHLORIDE 0.9% 100 ML IVPB SCH ×2 (08:38→22:24)
[2021-12-21] MEDS: METOPROLOL TARTRATE 25 MG TAB PO SCH ×2 (08:38→22:26)
[2021-12-21] MEDS: ASPIRIN 81 MG PO SCH (08:38)
[2021-12-21] MEDS: ATORVASTATIN 40 MG TAB PO SCH (08:38)
[2021-12-21] MEDS: amLODIPine 10 MG TAB PO SCH (08:38)
[2021-12-21] MEDS: hydrALAZINE HCL 50 MG TAB PO SCH ×3 (08:38→23:04)
[2021-12-21] MEDS: LETROZOLE 2.5 MG TAB PO SCH (08:38)
--- NOTE | 2021-12-21 12:39 | P.PN ---
Subjective Progress Note Date: 12/19/21 Principal diagnosis: Fever Patient is a 81-year Old female presenting to the hospital few days ago for evaluation of expressive aphasia mental status changes initial work-up for CVA that was negative subsequent spike of fever and there was concern for urinary source. On today's evaluation that is 12/19/2021 The patient continues to be afebrile, the patient is breathing comfortably on room air denies any chest pain shortness of breath or cough no abdominal pain no diarrhea Objective - Vital Signs Vital signs: Vital Signs Temp 98.2 F 12/19/21 03:30 Pulse 74 12/19/21 08:00 Resp 16 12/19/21 08:00 BP 167/80 12/19/21 08:00 Pulse Ox 97 12/19/21 08:00 FiO2 Intake & Output 12/18/21 12/19/21 12/19/21 18:59 06:59 18:59 Intake Total 610 240 Output Total 1300 800 Balance -690 -800 240 Weight 111 kg Intake: IV 50 Intake, IV Titration 200 Amount cefTRIAXone 2 gm In 100 Sodium Chloride 0.9% 50 ml @ 100 mls/hr IVPB Q24H [facility] Rx#:[id number] levETIRAcetam IV 500 mg 100 In Sodium Chloride 0.9% 100 ml @ 400 mls/hr IVPB Q12HR [facility] Rx#:[id number] Oral 360 240 Output: Urine 1300 800 Other: Voiding Method External Catheter External Catheter External Catheter - Exam GENERAL DESCRIPTION elderly female lying in bed, no distress. No tachypnea or accessory muscle of respiration use. LUNGS: Unlabored breathing. Clear to auscultation anteriorly. No wheeze or crackle. HEART: S1, S2, regular rate and rhythm. No loud murmur ABDOMEN: Soft, no tenderness , guarding or rigidity, no organomegaly EXTREMITIES: No edema of feet. - Labs CBC & Chem 7: 12/18/21 09:10 12/18/21 09:10 Labs: Abnormal Lab Results - Last 24 Hours (Table) 12/18/21 Range/Units 08:50 CSF RBC 11 H (0-10) u/L CSF Total Protein 75 H (12-60) mg/dL Microbiology - Last 24 Hours (Table) 12/18/21 08:50 CSF Gram Stain - Preliminary Cerebral Spinal Fluid CSF Culture - Preliminary 12/18/21 08:50 Anaerobic Culture - Preliminary Cerebral Spinal Fluid 12/13/21 19:30 Blood Culture - Preliminary Blood No Growth after 120 hours 12/13/21 19:45 Blood Culture - Preliminary Blood No Growth after 120 hours 12/16/21 16:13 Blood Culture - Preliminary Blood No Growth after 48 hours Assessment and Plan (1) Altered mental status Current Visit: Yes Status: Acute Code(s): R41.82 - ALTERED MENTAL STATUS, UNSPECIFIED SNOMED Code(s): 897619230 (2) UTI (urinary tract infection) Current Visit: Yes Status: Acute Code(s): N39.0 - URINARY TRACT INFECTION, SITE NOT SPECIFIED SNOMED Code(s): 54005207 Plan: 1patient with a fever positive UA concerning for a pyelonephritis The patient urine has been finalized with the Proteus Mirabelas which is a sensitive pathogen 2-patient has shown clinical improvement to continue with the Rocephin while inpatient finishing therapy with oral Ceftin Time with Patient: Less than 30
--- NOTE | 2021-12-21 12:40 | P.PN ---
Subjective Progress Note Date: 12/20/21 Principal diagnosis: Fever Patient is a 81-year Old female presenting to the hospital few days ago for evaluation of expressive aphasia mental status changes initial work-up for CVA that was negative subsequent spike of fever and there was concern for urinary source. Patient did have a lumbar puncture and CSF examination on 12/18/2021 which was essentially negative except mildly elevated protein On today's evaluation that is 12/20/2021 The patient remains to be afebrile, the patient is breathing comfortably on room air , the patient denies any chest pain shortness of breath or cough no abdominal pain no diarrhea Objective - Vital Signs Vital signs: Vital Signs Temp 98.1 F 12/20/21 09:20 Pulse 64 12/20/21 12:20 Resp 16 12/20/21 12:20 BP 169/81 12/20/21 12:20 Pulse Ox 94 L 12/20/21 12:20 FiO2 Intake & Output 12/19/21 12/20/21 12/20/21 18:59 06:59 18:59 Intake Total 340 350 236 Output Total 600 600 650 Balance -260 -250 -414 Intake: Intake, IV Titration 100 150 Amount Lactated Ringers 1,000 ml 0 @ 0 mls/hr IV .[facility] Rx#:[id number] cefTRIAXone 2 gm In 100 50 Sodium Chloride 0.9% 50 ml @ 100 mls/hr IVPB Q24H [facility] Rx#:[id number] levETIRAcetam IV 500 mg 100 In Sodium Chloride 0.9% 100 ml @ 400 mls/hr IVPB Q12HR [facility] Rx#:[id number] Oral 240 200 236 Output: Urine 600 600 650 Other: Voiding Method External Catheter External Catheter External Catheter # Bowel Movements 1 - Exam GENERAL DESCRIPTION elderly female lying in bed, no distress. No tachypnea or accessory muscle of respiration use. LUNGS: Unlabored breathing. Clear to auscultation anteriorly. No wheeze or crackle. HEART: S1, S2, regular rate and rhythm. No loud murmur ABDOMEN: Soft, no tenderness , guarding or rigidity, no organomegaly EXTREMITIES: No edema of feet. - Labs CBC & Chem 7: 12/18/21 09:10 12/18/21 09:10 Labs: Microbiology - Last 24 Hours (Table) 12/18/21 08:50 CSF Gram Stain - Preliminary Cerebral Spinal Fluid CSF Culture - Preliminary 12/13/21 19:30 Blood Culture - Final Blood No Growth after 144 hours 12/13/21 19:45 Blood Culture - Final Blood No Growth after 144 hours 12/16/21 16:13 Blood Culture - Preliminary Blood No Growth after 72 hours Assessment and Plan (1) Altered mental status Current Visit: Yes Status: Acute Code(s): R41.82 - ALTERED MENTAL STATUS, UNSPECIFIED SNOMED Code(s): 135371900 (2) UTI (urinary tract infection) Current Visit: Yes Status: Acute Code(s): N39.0 - URINARY TRACT INFECTION, SITE NOT SPECIFIED SNOMED Code(s): 21695973 Plan: 1patient with a fever positive UA concerning for a pyelonephritis The patient urine has been finalized with the Proteus Mirabelas which is a sensitive pathogen 2-patient slowly clinically improving and is currently being treated with the Rocephin and monitor clinical course closely Time with Patient: Less than 30
--- NOTE | 2021-12-21 12:41 | P.PN ---
Subjective Progress Note Date: 12/21/21 Principal diagnosis: Fever Patient is a 81-year Old female presenting to the hospital few days ago for evaluation of expressive aphasia mental status changes initial work-up for CVA that was negative subsequent spike of fever and there was concern for urinary source. Patient did have a lumbar puncture and CSF examination on 12/18/2021 which was essentially negative except mildly elevated protein On today's evaluation that is 12/21/2021 The patient denies any fever or any chills, the patient is breathing comfortably on room air , the patient denies any chest pain shortness of breath or cough , the patient denies nausea no vomiting, no abdominal pain no diarrhea Objective - Vital Signs Vital signs: Vital Signs Temp 98 F 12/21/21 11:29 Pulse 74 12/21/21 11:29 Resp 18 12/21/21 11:29 BP 124/84 12/21/21 11:29 Pulse Ox 96 12/21/21 11:29 FiO2 Intake & Output 12/20/21 12/21/21 12/21/21 18:59 06:59 18:59 Intake Total 236 150 118 Output Total 650 950 Balance -414 -800 118 Intake: Intake, IV Titration 150 Amount cefTRIAXone 2 gm In 50 Sodium Chloride 0.9% 50 ml @ 100 mls/hr IVPB Q24H [facility] Rx#:[id number] levETIRAcetam IV 500 mg 100 In Sodium Chloride 0.9% 100 ml @ 400 mls/hr IVPB Q12HR [facility] Rx#:[id number] Oral 236 118 Output: Urine 650 950 Other: Voiding Method External Catheter # Voids 1 # Bowel Movements 1 - Exam GENERAL DESCRIPTION elderly female lying in bed, no distress. No tachypnea or accessory muscle of respiration use. LUNGS: Unlabored breathing. Clear to auscultation anteriorly. No wheeze or crackle. HEART: S1, S2, regular rate and rhythm. No loud murmur ABDOMEN: Soft, no tenderness , guarding or rigidity, no organomegaly EXTREMITIES: No edema of feet. - Labs CBC & Chem 7: 12/18/21 09:10 12/18/21 09:10 Labs: Microbiology - Last 24 Hours (Table) 12/18/21 08:50 Anaerobic Culture - Final Cerebral Spinal Fluid 12/18/21 08:50 CSF Gram Stain - Preliminary Cerebral Spinal Fluid CSF Culture - Preliminary 12/16/21 16:13 Blood Culture - Preliminary Blood No Growth after 96 hours Assessment and Plan (1) Altered mental status Current Visit: Yes Status: Acute Code(s): R41.82 - ALTERED MENTAL STATUS, UNSPECIFIED SNOMED Code(s): 153491476 (2) UTI (urinary tract infection) Current Visit: Yes Status: Acute Code(s): N39.0 - URINARY TRACT INFECTION, SITE NOT SPECIFIED SNOMED Code(s): 09084141 Plan: 1patient with a fever positive UA concerning for a pyelonephritis The patient urine has been finalized with the Proteus Mirabelas which is a sensitive pathogen 2-patient has shown clinical improvement with the Rocephin with a plan to finish therapy with oral Ceftin x 7 days Time with Patient: Less than 30
--- NOTE | 2021-12-21 12:41 | P.PN ---
Subjective Progress Note Date: 12/21/21 Patient mental status has improved significantly since admission. She is slightly confused however is gradually improving. Objective - Vital Signs Vital signs: Vital Signs Temp 98 F 12/21/21 11:29 Pulse 74 12/21/21 11:29 Resp 18 12/21/21 11:29 BP 124/84 12/21/21 11:29 Pulse Ox 96 12/21/21 11:29 FiO2 Intake & Output 12/20/21 12/21/21 12/21/21 18:59 06:59 18:59 Intake Total 236 150 118 Output Total 650 950 Balance -414 -800 118 Intake: Intake, IV Titration 150 Amount cefTRIAXone 2 gm In 50 Sodium Chloride 0.9% 50 ml @ 100 mls/hr IVPB Q24H [facility] Rx#:[id number] levETIRAcetam IV 500 mg 100 In Sodium Chloride 0.9% 100 ml @ 400 mls/hr IVPB Q12HR [facility] Rx#:[id number] Oral 236 118 Output: Urine 650 950 Other: Voiding Method External Catheter # Voids 1 # Bowel Movements 1 - Exam General examination - Alert and Oriented 3 in NAD, appears chronically debilitated Heart - + S1S2 no murmurs Lungs - Clear to auscultation Abdomen soft NT ND +ve BS, morbidly obese Extremities -edema in bilateral lower extremity, bilateral looks in the cellulitis is improving [employer] - Moving all 4 extremities 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, 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 Psych -mildly confused - Labs CBC & Chem 7: 12/18/21 09:10 12/18/21 09:10 Labs: Microbiology - Last 24 Hours (Table) 12/18/21 08:50 Anaerobic Culture - Final Cerebral Spinal Fluid 12/18/21 08:50 CSF Gram Stain - Preliminary Cerebral Spinal Fluid CSF Culture - Preliminary 12/16/21 16:13 Blood Culture - Preliminary Blood No Growth after 96 hours Assessment and Plan Assessment: Sepsis Likely due to UTI Patient had lumbar puncture done on 12/18/2021: Fluid analysis and cultures negative so doubt sepsis due to meningitis Patient on IV Rocephin day 6 of 7. HSV negative so we'll discontinue acyclovir Follow up on blood culture negative to date Urine culture finalized and grew Proteus mirabilis that is sensitive to cephalosporins Ultrasound was limited but negative for pyelonephritis Patient's fevers have resolved WBC has normalized Acute toxic encephalopathy MRI negative for acute stroke EEG consistent with toxic metabolic encephalopathy Carotid Doppler negative for high-grade stenosis Echocardiogram is unremarkable Neurology on board Oxybutynin discontinued as it could be contributed to her confusion Patient's mental status is gradually improving Hypertension urgency Continue current BP meds regimen Blood pressure is better controlled this morning Type II KS secondary to sepsis Cardiology signed off Echocardiogram unremarkable DVT prophylaxis: Resume subcu heparin Patient is medically stable for discharge to senior care facility. Awaiting for prior authorization
[2021-12-21] MEDS: MELATONIN 1 MG TAB PO SCH (22:24)
[2021-12-22] MEDS: PANTOPRAZOLE 40 MG TABLET PO SCH (06:58)
[2021-12-22] MEDS: HEPARIN SODIUM,PORCINE/PF 5,000 UNIT/0.5 ML SYRINGE SQ SCH (08:31)
[2021-12-22] MEDS: ATORVASTATIN 40 MG TAB PO SCH (08:32)
[2021-12-22] MEDS: METOPROLOL TARTRATE 25 MG TAB PO SCH (08:32)
[2021-12-22] MEDS: LOSARTAN 50 MG TAB PO SCH (08:32)
[2021-12-22] MEDS: amLODIPine 10 MG TAB PO SCH (08:32)
[2021-12-22] MEDS: ASPIRIN 81 MG PO SCH (08:32)
[2021-12-22] MEDS: LETROZOLE 2.5 MG TAB PO SCH (08:33)
[2021-12-22] MEDS: levETIRAcetam IV 500 MG in SODIUM CHLORIDE 0.9% 100 ML IVPB SCH (08:33)
[2021-12-22] MEDS: hydrALAZINE HCL 50 MG TAB PO SCH (08:33)
[2021-12-22 12:11] VITALS: BP 173/78; RESP 18; TEMP 97.7
--- NOTE | 2021-12-22 13:13 | P.DS ---
Providers Date of admission: 12/13/21 21:36 Expected date of discharge: 12/22/21 Attending physician: Luisa Camarena MD Consults: 12/14/21 03:30 Consult Physician Routine Consulting Provider: Marcel Abraham Consult Reason/Comments: worsening cognitive impairment, difficulty speaking Do you want consulting provider notified?: Yes, Notify in am 12/14/21 18:38 Consult Physician Urgent Consulting Provider: Yasmani Pratt Consult Reason/Comments: Altered mental status, has UTI, rule out encephalitis Do you want consulting provider notified?: Yes Primary care physician: [facility] Course: Patient is a 81-year-old female with PMH of breast cancer, hypertension, dyslipidemia, mild cognitive impairment presented to the ED for impairment in cognition. Patient underwent extensive workup in the ED. CT brain was negative for acute pathology. She does not have an elevated troponin of 1.21, 1.05, 1.10 with EKG showing right bundle branch block. She was noted to have leukocytosis, tachycardic elevated lactic acid and a positive source of infection on urinalysis. She was started on Rocephin and admitted for further management of symptoms. Urine culture came back positive for Proteus mirabilis. She completed a seven-day course of IV Rocephin during this hospitalization. Blood cultures were negative. Infectious disease was consulted and patient was started on acyclovir for concerns of HSV and underwent lumbar puncture on 12/18/2021. Fluid analysis and cultures were negative which was doubtful for meningitis. Acyclovir was discontinued. With regard to her altered mentation, neurology was consulted. MRI brain was performed and was negative for acute stroke. EEG was consistent with toxic metabolic encephalopathy. Patient was empirically started on Keppra to be followed up with neurology in 2-4 weeks for repeat EEG. Carotid Doppler was negative for high-grade stenosis. Cardiology was consulted with regard to her elevated troponins. Echocardiogram showed no regional wall motion abnormalities. Her troponin elevation was thought to be secondary to sepsis and cardiology signed off with no further intervention. PT and OT evaluated the patient and recommended on discharge. Insurance authorization is pending at this time. Patient was seen and examined. No acute events overnight. Infectious disease recommends completing Ceftin for 7 days at the time of discharge. She is advised to follow-up with her PCP within 1-2 days of discharge. Follow-up with neurology within 2 weeks of discharge. Follow-up with cardiology within 1 week discharge. Plans on SNF pending insurance authorization. General: non toxic, no distress, appears at stated age Derm: warm, dry Head: atraumatic, normocephalic, symmetric Eyes: EOMI, no lid lag, anicteric sclera Mouth: no lip lesion, mucus membranes moist Cardiovascular: S1S2 reg, no murmur Lungs: CTA bilateral, no rhonchi, no rales , no accessory muscle use Ext: no gross muscle atrophy, no edema, no contractures Neuro: no focal neuro deficits Psych: Alert, oriented, appropriate affect Discharge Diagnosis: #Sepsis related to UTI #Acute toxic encephalopathy #Hypertensive urgency #Type II [place] secondary to sepsis Resolved: Lactic acidosis Chronic conditions: Dyslipidemia, history of breast cancer This complex discharge took about 37 minutes to complete. Pertinent Studies: Chest x-ray CT brain MRI brain Echocardiogram Carotid Doppler EEG Bladder ultrasound Patient Condition at Discharge: Stable Plan - Discharge Summary Discharge Rx Participant: Yes New Discharge Prescriptions: New hydrALAZINE HCL [Apresoline] 50 mg PO TID tab Cefuroxime [Ceftin] 250 mg PO BID 7 Days #14 tab levETIRAcetam [Keppra] 500 mg PO Q12HR tab Acetaminophen Tab [Tylenol] 650 mg PO Q6HR PRN tab PRN Reason: Fever And/ Or Pain Aspirin 81 mg PO DAILY tab Melatonin 2 mg PO HS tab Pantoprazole [Protonix] 40 mg PO AC-BRKFST tab Continue Multivit-Min/Iron/Folic/Lutein [Centrum Silver Women Tablet] 1 tab PO DAILY Zinc Gluconate [Zinc] 50 mg PO DAILY Cholecalciferol [Vitamin D3 (125 Mcg = 5000 Iu)] 125 mcg PO DAILY Losartan Potassium 100 mg PO DAILY Letrozole [Femara] 2.5 mg PO DAILY Fluticasone Nasal [place] [Flonase Nasal [place]] 2 spr EA NOSTRIL DAILY PRN PRN Reason: Allergy Symptoms amLODIPine [Norvasc] 10 mg PO DAILY Metoprolol Tartrate [Lopressor] 25 mg PO BID Calcium Citrate 600mg 1 tab PO BID Atorvastatin [Lipitor] 40 mg PO DAILY Discontinued Ibuprofen [Motrin] 800 mg PO Q8H PRN PRN Reason: Pain hydrALAZINE HCL [Apresoline] 25 mg PO TID Quercetin Dihydrate 1 dose PO DAILY buPROPion XL [Wellbutrin XL] 150 mg PO DAILY ALPRAZolam [Xanax] 0.25 mg PO QID PRN PRN Reason: Anxiety Oxybutynin Chloride [Ditropan XL] 10 mg PO DAILY Discharge Medication List Multivit-Min/Iron/Folic/Lutein [Centrum Silver Women Tablet] 1 tab PO DAILY 10/02/18 [History] Atorvastatin [Lipitor] 40 mg PO DAILY 12/13/21 [History] Calcium Citrate 600mg 1 tab PO BID 12/13/21 [History] Cholecalciferol [Vitamin D3 (125 Mcg = 5000 Iu)] 125 mcg PO DAILY 12/13/21 [History] Fluticasone Nasal [place] [Flonase Nasal [place]] 2 spr EA NOSTRIL DAILY PRN 12/13/21 [History] Letrozole [Femara] 2.5 mg PO DAILY 12/13/21 [History] Losartan Potassium 100 mg PO DAILY 12/13/21 [History] Metoprolol Tartrate [Lopressor] 25 mg PO BID 12/13/21 [History] Zinc Gluconate [Zinc] 50 mg PO DAILY 12/13/21 [History] amLODIPine [Norvasc] 10 mg PO DAILY 12/13/21 [History] Acetaminophen Tab [Tylenol] 650 mg PO Q6HR PRN tab 12/22/21 [Rx] Aspirin 81 mg PO DAILY tab 12/22/21 [Rx] Cefuroxime [Ceftin] 250 mg PO BID 7 Days #14 tab 12/22/21 [Rx] Melatonin 2 mg PO HS tab 12/22/21 [Rx] Pantoprazole [Protonix] 40 mg PO AC-BRKFST tab 12/22/21 [Rx] hydrALAZINE HCL [Apresoline] 50 mg PO TID tab 12/22/21 [Rx] levETIRAcetam [Keppra] 500 mg PO Q12HR tab 12/22/21 [Rx] Follow up Appointment(s)/Referral(s): Abhijeet Myers MD [Primary Care Provider] - 1-2 days Hakeem Dinh MD [REFERRING] - 2 Weeks Activity/Diet/Wound Care/Special Instructions: Diet: Low salt Follow-up with PCP within 1-2 days of discharge. Follow-up with neurology within 2 weeks of discharge. Take all medications as advised. Discharge/Stand Alone Forms: [facility] Instructions Discharge Disposition: TRANSFER TO SNF/ECF
[2021-12-22 15:33] VITALS: PULSE 62
[2021-12-22] MEDS ORDERED: levETIRAcetam 500 MG TAB PO SCH (21:00)
== END 2021-12-22 15:42 | DRG 871 ==
LOC: EC 18:40 → 3SCARD 21:36
PROVIDERS: ADMIT Internal Medicine; ATTEND Internal Medicine
PROC: 009U3ZX Drainage of Spinal Canal, Percutaneous Approach, Diagnostic (ICD-10-PCS; principal; 2021-12-18 09:00)
DX: A41.59 Other Gram-negative sepsis (principal); G92.8 Other toxic encephalopathy; I21.A1 Myocardial infarction type 2; N39.0 Urinary tract infection, site not specified; I45.2 Bifascicular block; Z68.42 Body mass index [BMI] 45.0-49.9, adult; R47.01 Aphasia; E87.2 Acidosis; I47.1 Supraventricular tachycardia; B96.4 Proteus (mirabilis) (morganii) as the cause of diseases classified elsewhere; I10 Essential (primary) hypertension; I16.0 Hypertensive urgency; W01.0XXA Fall on same level from slipping, tripping and stumbling without subsequent striking against object, initial encounter; R29.6 Repeated falls; E66.01 Morbid (severe) obesity due to excess calories; R00.1 Bradycardia, unspecified; E78.5 Hyperlipidemia, unspecified; F41.9 Anxiety disorder, unspecified; G31.84 Mild cognitive impairment of uncertain or unknown etiology; J32.0 Chronic maxillary sinusitis; R06.00 Dyspnea, unspecified; Y92.009 Unspecified place in unspecified non-institutional (private) residence as the place of occurrence of the external cause; I89.0 Lymphedema, not elsewhere classified; Z20.822 Contact with and (suspected) exposure to COVID-19; Z96.653 Presence of artificial knee joint, bilateral; Z79.899 Other long term (current) drug therapy; Z79.811 Long term (current) use of aromatase inhibitors; Z71.3 Dietary counseling and surveillance; Z98.42 Cataract extraction status, left eye; Z98.41 Cataract extraction status, right eye; Z91.81 History of falling; Z75.1 Person awaiting admission to adequate facility elsewhere; Z85.3 Personal history of malignant neoplasm of breast; Z88.5 Allergy status to narcotic agent
CPT/HCPCS: 36415; 62270; 70450; 70551; 71045; 76770; 80048; 80053; 80061; 80306; 80320; 81001; 82607; 82746; 82945; 83036; 83605; 83735; 84157; 84443; 84484; 85025; 85610; 85730; 86140; 86694; 86695; 86696; 87040; 87070; 87075; 87077; 87086; 87186; 87205; 87252; 87496; 87498; 87529; 87635; 87798; 88108; 89050; 93005; 93306; 93880; 94760; 95816; 96374; 99285

== ENCOUNTER → 2022-09-13 | Outpatient (CLI) | payer MEDICARE ==
--- NOTE | 2022-09-14 08:04 | MM ---
Reason for Exam: Screening (asymptomatic). Last screening mammogram was performed 12 month(s) ago. Patient History: Menarche at age 14. First Full-Term at age 24. Hysterectomy at age 49. Postmenopausal. Breast cancer, age 78. Progesterone for 2 years from age 49 until age 51. 01/18/2019, Bilateral Lumpectomy. Malignant Core Biopsy. 01/18/2019, Malignant Core Biopsy on the right side. 01/02/2019, Bilateral Malignant Core Biopsy. 10/18/2018, Malignant Core Biopsy on the left side. Prior Study Comparison: 09/04/2019 Bilateral Diagnostic Mammogram, [facility]. 09/09/2020 Bilateral Diagnostic Mammogram, [facility]. 09/10/2021 Bilateral MG 3D screening mammo w/cad, [facility]. Tissue Density: There are scattered fibroglandular densities. Findings: Analyzed By CAD. Chronic bilateral nodularity. Postsurgical change on both sides. Benign bilateral vascular calcifications. No significant change from prior exams. Overall Assessment: Benign, BI-RAD 2 Management: Screening Mammogram of both breasts in 1 year. . Patient should continue monthly self-breast exams. A clinical breast exam by your physician is recommended on an annual basis. This exam should not preclude additional follow-up of suspicious palpable abnormalities. Electronically signed and approved by: Spike Mesa M.D. Radiologist
== END | disposition home or self-care (01) ==
LOC: RADMAMWWP 10:42
PROVIDERS: ATTEND Surgery
DX: Z12.31 Encounter for screening mammogram for malignant neoplasm of breast (principal); Z78.0 Asymptomatic menopausal state
CPT/HCPCS: 77063; 77067

== ENCOUNTER → 2023-09-15 | Outpatient (CLI) | payer MEDICARE ==
--- NOTE | 2023-09-15 11:38 | MM ---
Reason for Exam: Hx of breast cancer, conservation therapy. Last screening mammogram was performed 12 month(s) ago. Patient History: Menarche at age 14. First Full-Term at age 24. Hysterectomy at age 49. Postmenopausal. Patient has history of breast feeding. Breast cancer, bilateral, age 78. Progesterone for 2 years from age 49 until age 51. 01/18/2019, Bilateral Lumpectomy. Malignant Core Biopsy. 01/18/2019, Malignant Core Biopsy on the right side. 01/02/2019, Bilateral Malignant Core Biopsy. 10/18/2018, Malignant Core Biopsy on the left side. Prior Study Comparison: 08/17/2017 Bilateral Screening Mammogram, [facility]. 08/30/2017 Right Diagnostic Mammogram, [facility]. 08/24/2018 Bilateral Screening Mammogram, [facility]. 09/01/2018 Left Diagnostic Mammogram, [facility]. 10/18/2018 Left Diagnostic Mammogram, [facility]. 01/02/2019 Bilateral Diagnostic Mammogram, [facility]. 01/18/2019 Left Diagnostic Mammogram, [facility]. 09/04/2019 Bilateral Diagnostic Mammogram, [facility]. 09/09/2020 Bilateral Diagnostic Mammogram, [facility]. 09/10/2021 Bilateral MG 3D screening mammo w/cad, [facility]. 09/13/2022 Bilateral MG 3D screening mammo w/cad, [facility]. Tissue Density: The breasts are heterogeneously dense, which may obscure small masses. Findings: Analyzed By CAD. Postoperative changes bilaterally. No new masses seen. No suspicious calcifications evident. Overall Assessment: Benign, BI-RAD 2 Management: Screening Mammogram of both breasts in 1 year. . Results were given to the patient verbally at the time of exam. Patient should continue monthly self-breast exams. A clinical breast exam by your physician is recommended on an annual basis. This exam should not preclude additional follow-up of suspicious palpable abnormalities. Note on Darlin scores and lifetime risk: 1. A Darlin score greater than 3% is considered moderate risk. If this is the case, consider specialist referral to assess eligibility for a risk reducing agent. 2. If overall lifetime risk for the development of breast cancer is 20% or higher, the patient may qualify for future screening with alternating mammogram and breast MRI. Electronically signed and approved by: Hieu Bryan M.D. Radiologis
== END | disposition home or self-care (01) ==
LOC: RADMAMWWP 10:55
PROVIDERS: ATTEND Surgery
DX: R92.333 Mammographic heterogeneous density, bilateral breasts (principal); R92.8 Other abnormal and inconclusive findings on diagnostic imaging of breast
CPT/HCPCS: 77066; G0279; 77062

== ENCOUNTER → 2024-07-16 | Outpatient (CLI) | payer MEDICARE ==
--- NOTE | 2024-07-16 15:10 | BD ---
EXAMINATION TYPE: Axial Bone Density DATE OF EXAM: 07/16/2024 CLINICAL HISTORY: 83 years old Female. ICD-10 CODE: M81.0 OSTEOPENIA , Additional History: Height: 58 Weight: 228.8 FRAX RISK QUESTIONS: Alcohol (3 or more units per day): no Family History (Parent hip fracture): no Glucocorticoids (More than 3mos): no (Ex: prednisone, prednisolone, methylprednisolone, dexamethasone, and hydrocortisone). History of Fracture in Adulthood: no Secondary Osteoporosis: 1. Type 1 Diabetes: no 2. Hyperthyroidism: no 3. Menopause before 45: no 4. Malnutrition: no 5. Chronic liver disease: no Rheumatoid Arthritis: no Current Tobacco Use: no RISK FACTORS HISTORY OF: Hip Fracture (Right/Left): no Spine Fracture: no History of Wrist Fracture: no Surgery to Spine/Hip(right/left)/Wrist (right/left): no MEDICATIONS: Thyroid Medications: no Osteoporosis Medications: no Breast Ca. 5 years EXAM MEASUREMENTS: Bone mineral densitometry was performed using the [employer] System. Bone mineral density as measured about the Lumbar spine is: ----- L1-L4(G/cm2): 1.073 T Score Values are as follows: ----- L1: -2.1 ----- L2: -1.5 ----- L3: -0.2 ----- L4: 0.0 ----- L1-L4: -0.9 Z Score Values are as follows: ----- L1: -1.4 ----- L2: -0.8 ----- L3: 0.5 ----- L4: 0.7 ----- L1-L4: -0.2 Bone mineral density has: decreased -3.0 % since study of: 05/03/2022 Bone mineral density about the R hip (g/cm2): 0.863 Bone mineral density about the L hip (g/cm2): 0.0851 T Score values are as follows: -----R Neck: -1.4 -----L Neck: -2.0 -----R Total: -1.1 -----L Total: -1.2 Z Score values are as follows: -----R Neck: 0.1 -----L Neck: -0.6 -----R Total: 0.1 -----L Total: 0.0 Bone mineral density has: decreased -6.8 % since study of: 05/03/2022 FRAX%s: The graph provided illustrates a 13.1 % chance for a major osteoporotic fx and a 3.7% chance for the hips probability for fx in 10 years time. IMPRESSION: Osteopenia (T Score between -2.5 and -1). There is slightly increased risk of fracture and the patient may be considered for treatment. Re-Screen 2-5 years. NOTE: T-SCORE=SD OF THE YOUNG ADULT MEAN. [facility], , 07/16/2024 3:08 PM
== END | disposition home or self-care (01) ==
LOC: RADBDWWP 13:38
PROVIDERS: ATTEND Internal Medicine Hematology & Oncology
DX: M81.0 Age-related osteoporosis without current pathological fracture (principal); C50.211 Malignant neoplasm of upper-inner quadrant of right female breast; M85.89 Other specified disorders of bone density and structure, multiple sites; C50.412 Malignant neoplasm of upper-outer quadrant of left female breast; E78.5 Hyperlipidemia, unspecified; I10 Essential (primary) hypertension; Z71.3 Dietary counseling and surveillance
CPT/HCPCS: 77080

== ENCOUNTER → 2024-09-26 | Outpatient (CLI) | payer MEDICARE ==
--- NOTE | 2024-09-26 15:08 | MM ---
Reason for Exam: Screening (asymptomatic). Last mammogram was performed 1 year(s) and 1 month(s) ago. Patient History: Menarche at age 14. First Full-Term at age 24. Hysterectomy at age 49. Postmenopausal. Patient has history of breast feeding. Breast cancer, bilateral, age 78. Progesterone for 2 years from age 49 until age 51. 01/18/2019, Bilateral Lumpectomy. Malignant Core Biopsy. 01/18/2019, Malignant Core Biopsy on the right side. 01/02/2019, Bilateral Malignant Core Biopsy. 10/18/2018, Malignant Core Biopsy on the left side. Prior Study Comparison: 09/10/2021 Bilateral MG 3D screening mammo w/cad, [facility]. 09/13/2022 Bilateral MG 3D screening mammo w/cad, [facility]. 09/15/2023 Bilateral MG 3D diag mammo w/cad [place], [facility]. Tissue Density: The breasts are heterogeneously dense, which may obscure small masses. Findings: Analyzed By CAD. Postsurgical and posttreatment change of both sides. Chronic nodularity on the left. Areas of asymmetric density are unchanged. Scattered benign vascular calcifications are redemonstrated. There is no suspicious group of microcalcifications or new suspicious mass in either breast. Overall Assessment: Benign, BI-RAD 2 Management: Screening Mammogram of both breasts in 1 year. Patient should continue monthly self-breast exams. A clinical breast exam by your physician is recommended on an annual basis. This exam should not preclude additional follow-up of suspicious palpable abnormalities. [facility], , 09/26/2024 3:04 PM. Electronically signed and approved by: Spike Mesa M.D. Radiologist
== END | disposition home or self-care (01) ==
LOC: RADMAMWWP 09:04
PROVIDERS: ATTEND Surgery
DX: Z12.31 Encounter for screening mammogram for malignant neoplasm of breast (principal); R92.333 Mammographic heterogeneous density, bilateral breasts; Z78.0 Asymptomatic menopausal state; Z85.3 Personal history of malignant neoplasm of breast
CPT/HCPCS: 77063; 77067